=== PATIENT | male | born 1950 | race Caucasian/White ===

== ENCOUNTER → 2024-06-24 11:06 | Outpatient (REF) | payer MEDICARE, SELFPAY ==
--- OUTSIDE RECORDS SUMMARY | 2024-06-24 12:49 | XMS_ITS ---
Author Organization [facility] Address [address] [place] [address] Care Team Providers Care Real Estate Legal Secretary Name Role Phone Rand Chong MD Primary Care Provide r Jose Brunson MD Unavailable Lauren Dia MD Unavailable [phone] Ranjit Sandoval Unavailable [phone]- [phone] Kareem Figueroa MD Unavailable Radha Toure Unavailable Natalya Peñaloza MD Unavailable Active Problems Patient Care Coordination No te Formatting of this note is d ifferent from the original. Geneva Zaidi NP 05/01/2023 12:05 PM This is a 72-year-old male patient presenting to the clinic today for multiple pulmonary nodules. He was referred to the clinic by Dr. Jose Brunson. He has a medical history significant for atrial fibrillation, nephrolithiasis, CAD with stents x2, scleroderma/CREST, myocardial infarction, hyperlipidemia, Raynaud's syndrome, and hypertension. He is a former smoker times 20 years. He was last seen by Dr. Brunson on 02/14/2023 and his note reveals: HPI: Vladimir Valdivia is a 72 y.o. male w/ PMH of coronary artery disease status post stent, persistent atrial fibrillation status post cardioversion, CREST syndrome, Raynaud's on sildenafil who presents on 02/14/2023 for evaluation of pulmonary nodules The patient had a recent ED visit with chest pain on 01/22. He underwent CT PE protocol which was negative for pulmonary embolism but did note multiple pleural-based ground-glass nodular opacities. His symptoms were later attributed to esophageal dysmotility and his known underlying CREST syndrome Interval History: The patient reports no new respiratory issues in the interval. He believes he has been having more issues with the colder weather including more telangiectasias. He continues using sildenafil. His repeat CT scan demonstrates some increase in size and solid component of multiple pulmonary nodules previously seen. I spoke with the patient several days ago and recommended we consider PET-CT. ASSESSMENT AND PLAN 1. 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 Pulmonary hypertension (HCC) - ECHO with borderline RVSP - sildenafil is for Raynaud's, no known pulmonary hypertension - he likely needs annual surveillance echocardiogram 3. Multiple pulmonary nodules - primarily ground-glass pulmonary nodules have demonstrated increase in size and solid component - unclear if these represent an indolent infectious or inflammatory process - given their increase in size and solid component we will evaluate further with PET-CT, I believe 1 of the anterior nodules may be amenable to CT-guided biopsy, the largest unfortunately appears to be in the shadow of a rib - it would be unusual for a primary lung malignancy to appear in multiple lobes simultaneously, PET-CT will also evaluate for any distant occult malignancy He underwent a CT of the chest on 07/25/2022 at [facility] which reveals: FINDINGS: The sensitivity for detection of solid visceral lesions is diminished without the use of intravenous contrast. LUNGS: Central airways are patent. There are semisolid subpleural pulmonary nodules which are similar to prior imaging, these measure 1.4 x 1.1 cm anterior upper lobe (image 45) unchanged and 2.3 x 1.6 cm (image 59) grossly unchanged. Semisolid nodule few additional nodules measure up to 0.6 cm (image 31). No new pulmonary nodules. PLEURA: No pleural effusion or pneumothorax is seen. MEDIASTINUM/PB: No mediastinal or hilar mass. Small nonpathologically enlarged mediastinal lymph nodes. Retained debris in the esophagus. Uncertain if this is retained or due to gastroesophageal reflux. HEART: Heart is top normal. Trace pericardial effusion. CORONARY ARTERY CALCIFICATION: Coronary artery calcification is identified. VASCULATURE: No thoracic aortic aneurysm. AXILLA: No axillary lymphadenopathy. CHEST WALL: No chest wall mass or subcutaneous emphysema. HARDWARE/LINES/TUBES: None. UPPER ABDOMEN: In the included upper abdomen, there is a cirrhotic liver morphology. MUSCULOSKELETAL: Bone windows demonstrate no acute or aggressive osseous abnormality. Moderate degenerative change in the thoracic spine. OTHER: No other significant abnormality. IMPRESSION: Subpleural semisolid nodules are not significantly changed, these are not well suited for potential PET assessment. These do show progression in size from January 2022. While low-grade neoplasm such as an adenocarcinoma cannot be excluded, the distribution would be more suggestive of an infectious or inflammatory process although persistent/progressive from January. Could consider cryptogenic organizing pneumonia or sequela of a viral infection. Additional 3-6 month follow-up recommended. Redemonstration of retained debris in the esophagus, could potentially be related to gastroesophageal reflux. Cirrhotic liver morphology. He underwent a follow-up CT of the chest on 02/07/2023 at [facility] which reveals: FINDINGS: The sensitivity for detection of solid visceral lesions is diminished without the use of intravenous contrast. LUNGS: Multiple peripheral predominant opacities are again noted, some of these show progression. An example in the anterior right upper lobe is a pleural-based opacity now 1.8 x 1.4 cm (image 48 of 103) previously 1.4 x 1.1 cm. In the posterior pleural-based right upper lobe there is a 2.7 x 1.8 cm more semisolid nodule (image 63), previously 2.3 x 1.6 cm. In the right middle lobe there is a 1.4 x 1.3 cm nodule (image 68), previously 1.1 x 1.0 cm (image 63). In the left upper lobe there is a more confluent area of nodular opacity 1.0 x 0.7 cm (image 40). Previously this was 0.9 x 0.5 cm (image 37). Nodule adjacent to the left heart border 1.0 x 0.9 cm (image 60). Small ground-glass nodule posterior left upper lobe just anterior to the major fissure appears new or more conspicuous 0.6 cm (image 24). Multiple additional smaller areas of nodular opacity are noted, there is the nodule in the left lower lobe 0.6 cm (image 66) not definitively seen on prior study. PLEURA: No pleural effusion or pneumothorax. MEDIASTINUM/PB: No mediastinal or hilar mass. There is debris in the esophagus. Small mediastinal lymph nodes which are not pathologically enlarged. HEART: Heart size is normal. Trace pericardial fluid. Coronary artery calcification. CORONARY ARTERY CALCIFICATION: No thoracic aortic aneurysm. VASCULATURE: No thoracic aortic aneurysm. AXILLA: No axillary lymphadenopathy. CHEST WALL: No chest wall mass or subcutaneous emphysema. HARDWARE/LINES/TUBES: None. UPPER ABDOMEN: In the included upper abdomen, slightly nodular surface contour of the liver suggests mild cirrhosis/fibrosis. MUSCULOSKELETAL: Bone windows demonstrate no acute or aggressive osseous abnormality. OTHER: No other significant abnormality. IMPRESSION: Multiple bilateral peripheral predominant opacities, increased from the prior examination. The progressive size raises the possibility of neoplasm. May consider a PET-CT or tissue sampling for further characterization. No evidence of an acute cardiopulmonary abnormality.Slightly nodular surface contour of the liver suggests mild cirrhosis/fibrosis.Debris in the esophagus may be related to reflux or dysmotility. Coronary artery calcification. He underwent a PET scan on 02/21/2023 at [facility] which reveals: FINDINGS:Focal uptake at the right maxillary alveolar ridge is likely due to dental disease.There are multiple hypermetabolic pulmonary nodules, includin.6 x 1.1 cm hypermetabolic anterior right upper lobe subpleural pulmonary nodule with a maximum SUV of 6.7, image #103. This nodule is amenable for biopsy. 1.9 x 2.2 cm subpleural right lower lobe pulmonary nodule with a maximum SUV of 7.1, image #111. This nodule is also amenable for biopsy. Mildly hypermetabolic 1.2 cm right middle lobe pulmonary nodule with a maximum SUV of 2.5, seen on image #115. Few mildly hypermetabolic subcentimeter pulmonary nodules in the left upper lobe for example a 0.8 cm nodule seen on image #99 with a maximum SUV of 2.3. Subpleural small groundglass opacity in the right lower lobe with a maximum SUV of 3.6 on image #100. There are multiple mildly FDG avid cutaneous/subcutaneous nodules. For reference; 0.8 cm hypermetabolic subcutaneous posterior midline nodule at the level of C2 vertebral body seen on image #37 with a maximum SUV of 3.7. 1.3 x 0.8 cm right posterolateral chest wall subcutaneous hypermetabolic nodule with a maximum SUV of 3.9, image #102. Additional posterior chest wall 1.4 x 0.8 cm subcutaneous nodule with a maximum SUV of 4.8, seen on image #111. Focal muscular uptake in the right trapezius at the level of C2 is likely inflammatory. Degenerative uptake in bilateral shoulders. There are physiologic uptake in bilateral infraspinatus muscles. There is a mildly FDG avid 1.1 cm left adrenal adenoma.The most FDG-avid lesion is right lower lobe pulmonary nodule, has a maximum SUV of 7.1, and approximate axial dimensions of 1.9 x [address] findings: Coronary artery calcifications. Cardiomegaly. Atherosclerotic calcification of the abdominal aorta and iliac arteries. Distended bladder with an irregular contour. Hiatal hernia with fluid level in distal esophagus. Degenerative changes of the spine. Bilateral lens replacement. Mediastinal/left hilar calcified granulomas. Mildly atrophic left kidney. IMPRESSION: Multiple hypermetabolic pulmonary nodules, more numerous in the right lung, with interval growth since 01/22/2022, likely represent malignancy. Two of these nodules which are moderately hypermetabolic and are most FDG avid nodules, at the subpleural right upper lobe and subpleural right lower lobe are amenable for tissue sampling. Multiple mildly FDG avid cutaneous/subcutaneous nodules as scribed may be related to the underlying CREST syndrome. Consider correlation with physical examination and tissue diagnosis, if clinically required. Focal uptake at the right maxillary alveolar ridge is likely due to dental disease. He underwent a CT-guided lung biopsy on 03/08/2023 at [facility] which was unsuccessful. He underwent another CT chest at [facility] on 04/04/2023 which reveals: FINDINGS: Unchanged mild cardiomegaly. No pericardial effusion. Coronary artery calcifications. Aortic valve calcifications. Unchanged small subcentimeter mediastinal lymph nodes. No supraclavicular or axillary lymphadenopathy. Normal caliber of the thoracic aorta and main pulmonary artery. Patulous esophagus with a small amount of layering fluid. Small hiatal hernia. Mild bilateral gynecomastia.There are unchanged multiple bilateral pulmonary nodules, some which are solid in appearance and some of which are groundglass. For reference, a 1.8 cm right upper lobe solid irregular nodule is unchanged (322.5). A 1.1 cm left upper lobe groundglass nodule is unchanged (304.5). No pleural effusion. No pneumothorax. Central airways are patent. Unchanged nodular hypoattenuating thickening of both adrenal glands. Small hiatal hernia. No suspicious osseous lesion. IMPRESSION: No significant interval change of multiple pulmonary nodules. He underwent a bronch with EBUS at [facility] on 04/05/2023 which reveals: Findings: 1. Airway inspection The endotracheal tube is in good position. The trachea is of normal caliber. The janet is sharp. The tracheobronchial tree was examined to at least the first subsegmental level. Bronchial mucosa and anatomy are normal; there are no endobronchial lesions, and no secretions. 2. Robotic bronchoscopy right lower lobe The robotic bronchoscope was advanced through the endotracheal tube under direct visualization. Registration was performed of the right and left bronchial trees per standard protocol. The robotic bronchoscope was then advanced to the lateral basal segment of the right lower lobe using direct visualization, CT-anatomic correlation, external fluoroscopic guidance and electromagnetic navigation. 3. Radial EBUS right lower lobe The 1.7mm 20Mhz radial EBUS probe was advanced through the working channel of the robotic bronchoscope and was used to examine the distal airways and lung parenchyma. Following thorough examination of the area using the robotic system and the radial probe, no lesion could be identified in the right lower lobe that corresponded to the nodule identified on recent chest imaging. 4. Robotic bronchoscopy right upper lobe The robotic bronchoscope was then advanced to the right upper lobe anterior segment using direct visualization, CT-anatomic correlation, external fluoroscopic guidance and electromagnetic navigation. 5. Radial EBUS right upper lobe The 1.7mm 20Mhz radial EBUS probe was advanced through the working channel of the robotic bronchoscope and was used to examine the distal airways and lung parenchyma. Following thorough examination of the area using the robotic system and the radial probe, no lesion could be identified in the right upper lobe that corresponded to the nodule identified on recent chest imaging. 6. Ultrathin bronchoscopy right lower lobe The robotic system was withdrawn and a 3mm OD ultrathin bronchoscope was advanced into the right lower lobe lateral basal segment using direct visualization and CT-anatomic correlation. 7. Radial EBUS right lower lobe The 1.7mm 20Mhz radial EBUS probe was advanced through the working channel of the 3mm bronchoscope and was used to examine the distal airways and lung parenchyma. A lesion was identified in the lateral basal segment using radial EBUS. The radial probe was positioned adjacent to the RLL lesion. 8. TBNA Transbronchial needle aspiration times 5 was performed using a Periview Flex 21 gauge needle advanced to the lesion in the RLL through the working channel of the 3mm bronchoscope and was sent for routine cytology. The procedure was fluoroscopically guided. 9. TBBx Transbronchial biopsies were performed in the RLL using forceps advanced through the bronchoscope. The procedure was fluoroscopically guided. 4 biopsy passes were performed. 4 biopsy samples were obtained. Estimated blood loss: minimal. Impression: - Robotic bronchoscopy with radial EBUS was not successful at isolating the right lower lobe nodule or the right upper lobe nodule - Ultrathin bronchoscopy and radial EBUS were used to isolate the right lower lobe nodule - TBNA and TBBx were performed from the right lower lobe - Specimens from the right lower lobe were sent to cytology, microbiology and surgical pathology Recommendation: - Await biopsy, culture and cytology results. Pathology from the EBUS procedure came back: Nondiagnostic for a mass lesion; lung parenchyma with no evidence of malignancy Cytology from the EBUS procedure came back: Lung, right lower lobe, endobronchial ultrasound guided fluoroscopy assisted fine needle aspiration: - Non-diagnostic for mass lesion - Benign bronchial epithelial cells, blood and macrophages only All imaging available on file for review. They are here for further evaluation and discussion. 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 07/24/2023 Family history of colon cancer in mother 024 History of colonic polyps 07/12/2023 Iron deficiency anemia 07/12/2023 Other cirrhosis of liver 05/02/2023 Assessment & Plan (05/06/2024 12:45 PM PROFILE GRINDER): Stable Continue following with gi for management Assessment & Plan (05/02/2023 7:02 AM PROFILE GRINDER): Stable Continue following with gi for management Medicare annual wellness visit, subsequent 05/01 Assessment & Plan (05/07/2024 12:54 PM PROFILE GRINDER): Labs reviewed and discussed Colonoscopy due 2025 AAA screening ordered F/u in 1 year for annual Assessment & Plan (05/02/2023 10:45 AM PROFILE GRINDER): Ordered lipid, hgb a1c, PSA Colonoscopy he will discuss with his GI provider Zoster-encouraged to go to local pharmacy F/u in 1 year for annual Assessment & Plan (05/02/2022 2:33 PM PROFILE GRINDER): Ordered CBC, cmp, lipid, hgb a1c, PSA Colonoscopy will be due in 2023 F/u in 1 year for annual Arteriovenous malformation (AVM) 02/28/2022 Gastrointestinal hemorrhage associated with angiodysplasia of stomach and duodenum 02/28/2022 Assessment & Plan (05/02/2023 6:55 AM PROFILE GRINDER): Stable / clinically quiescent. Will continue to monitor. Continue pepcid 20mg daily Dysphagia 01/30/2022 Overview (01/30/2022): Added automatically from request for surgery [id number] Statin intolerance 05/30/2020 Iron deficiency anemia hailey hensley to inadequate dietary iron intake 06/02/2019 Assessment & Plan (05/02/2023 6:56 AM PROFILE GRINDER): Lab Results Component Value Date HGB 11.4 (L) 04/12/2023 stable Cbc every 6 months Continue iron tablets Assessment & Plan (05/02/2022 2:22 PM PROFILE GRINDER): Cbc every 6 months Continue iron tablets [place] (myocardial infarction) 03/11/2019 Assessment & Plan (05/02/2022 2:19 PM PROFILE GRINDER): S/p 2 stents Continue following with cardiology Hypogonadism in male 11/12/2017 Assessment & Plan (05/06/2024 12:40 PM PROFILE GRINDER): Continue revatio 20mg 3x/day This is for the pulmonary htn, raynauds, and hypogonadism Assessment & Plan (05/02/2023 6:54 AM PROFILE GRINDER): Continue revatio 20mg 3x/day This is for the pulmonary htn, raynauds, and hypogonadism Assessment & Plan (05/02/2022 2:20 PM PROFILE GRINDER): Continue revatio 20mg 3x/day This is for the pulmonary htn, raynauds, and hypogonadism Essential hypertension 06/27/2017 Assessment & Plan (05/07/2024 10:35 AM PROFILE GRINDER): Bp in the office today BP Readings from Last 1 Encounters: 05/07/24 130/62 Continue current regimen of losartan-hctz 100-25mg daily Recommend DASH diet, heart-healthy lifestyle, exercise. Discussed the risks of hypertension. F/u in 6 months Assessment & Plan (10/31/2023 10:50 AM CDT): Bp in the office today BP Readings from Last 1 Encounters: 10/31/23 145/73 Continue current regimen of losartan-hctz 100-25mg daily Recommend DASH diet, heart-healthy lifestyle, exercise. Discussed the risks of hypertension. F/u in 6 months Assessment & Plan (05/02/2023 10:30 AM PROFILE GRINDER): Bp in the office today BP Readings from Last 1 Encounters: 05/02/23 140/68 Continue current regimen of losartan-hctz 100-25mg daily Recommend DASH diet, heart-healthy lifestyle, exercise. Discussed the risks of hypertension. F/u in 6 months Assessment & Plan (10/29/2022 10:08 AM CDT): Bp in the office today BP Readings from Last 1 Encounters: 10/29/22 130/80 Continue current regimen of losartan-hctz 100-25mg daily Recommend DASH diet, heart-healthy lifestyle, exercise. Discussed the risks of hypertension. F/u in 6 months Assessment & Plan (05/02/2022 2:18 PM PROFILE GRINDER): Bp in the office today BP Readings from Last 1 Encounters: 05/02/22 140/70 Continue current regimen of losartan-hctz 100-25mg daily Recommend DASH diet, heart-healthy lifestyle, exercise. Discussed the risks of hypertension. F/u in 6 months CREST syndrome 06/19/2017 Assessment & Plan (05/06/2024 12:45 PM PROFILE GRINDER): Stable / clinically quiescent. Will continue to monitor. Assessment & Plan (05/02/2023 6:56 AM PROFILE GRINDER): Stable / clinically quiescent. Will continue to monitor. Assessment & Plan (05/02/2022 2:22 PM PROFILE GRINDER): Continue sildenafil Acute blood loss anemia 06/19/2017 Assessment & Plan (06/19/2017 4:04 PM PROFILE GRINDER): Status post 4 U of packed RBCs. Monitor H&H. Hold anticoagulation. Assessment & Plan (06/19/2017 1:11 PM PROFILE GRINDER): Initial hemoglobin less than 6, patient received 2 U of packed red blood cells, keep hb above 7 Raynaud's disease with gangrene ([facility]/HCC) 2016 Chronic atrial fibrillation 11/20/2016 Assessment & Plan (05/06/2024 12:39 PM PROFILE GRINDER): Not on AC due to hx of bleeding on xarelto Continue asa Continue following with cardiology Assessment & Plan (05/02/2023 6:52 AM PROFILE GRINDER): Was on xarelto and almost bled to so cannot do xarelto Continue asa Continue following with cardiology Assessment & Plan (05/02/2022 2:14 PM PROFILE GRINDER): Was on xarelto and almost bled to so cannot do xarelto Continue asa Continue following with cardiology Assessment & Plan (06/19/2017 4:09 PM PROFILE GRINDER): Patient is on chronic anticoagulation with Xarelto, coagulation study showed mild elevation of INR 1.31. Recommending to discontinue Xarelto for now and follow up with a tertiary center for further cauterization of possible small-bowel telangiectasias. Risks and benefits were discussed with the patient about discontinuation of anticoagulation. Patient verbalized understanding. Assessment & Plan (06/19/2017 1:11 PM PROFILE GRINDER): Will hold any anticoagulation at this point due to active bleeding Telemetry monitoring Mixed hyperlipidemia 11/20/2016 Assessment & Plan (05/06/2024 12:40 PM PROFILE GRINDER): Lab Results Component Value Date LDLCALC 118 04/30/2024 Stable Continue atorvastatin 20mg daily Assessment & Plan (05/02/2023 6:53 AM PROFILE GRINDER): Stable Continue statin medication Assessment & Plan (05/01/2022 9:15 PM PROFILE GRINDER): Stable Continue statin medication Coronary artery disease invo lving [place] heart without angina pectoris 11/20/2016 Assessment & Plan (05/06/2024 12:39 PM PROFILE GRINDER): S/p 2 stent Cont asa and statin Continue following with cardiology Assessment & Plan (05/02/2023 6:53 AM PROFILE GRINDER): S/p 2 stent Continue following with cardiology Assessment & Plan (05/02/2022 2:15 PM PROFILE GRINDER): S/p 2 stent Continue following with cardiology Assessment & Plan (06/19/2017 1:11 PM PROFILE GRINDER): Stable No antiplatelets at this point - patient with active GI bleed Chronic coronary artery disease 07/05/2014 Overview (07/28/2016): CAD - Coronary artery disease Systemic sclerosis (CMS/HCC) 09/05/2013 Overview (07/26/2016): SYSTEMIC SCLEROSIS Class 2 severe obesity due t o excess calories with serious comorbidity and body mass index (BMI) of 36.0 to 36.9 in adult 09/05/2013 Overview (07/28/2016): OBESITY NOS Assessment & Plan (05/02/2023 10:59 AM PROFILE GRINDER): He was counseled on the importance of maintaining a healthy weight and the risks of obesity. Weight loss recommended. Chronic anemia Current Treatment and Therapy Plans No current plan information found. Other Current Plans iron sucrose (Venofer) Infusion* Plan Start Date:06/18/2024 Plan Provider:Kareem Figueroa MD Linked Problems Iron deficiency anemia due t o chronic blood lossArteriovenous malformation (AVM) Treatment Medications No medications scheduled. Past Treatment and Therapy Plans Lifetime Dose Tracking * Chemical Lifetime Dose Automatic Entry Manual Entr y DLP 802 mGycm 802 mGycm 0 mGycm Resolved Problems Problem Noted Date Diagnosed Date Resolved Date Upper respiratory infection 10/08/2023 05/06/2024 Assessment & Plan (10/08/2023 11:08 AM CDT): New concern Not at goal S/p augmentin Covid and flu negative Will send cefdinir and z pack Chest xray ordered given wheezing on exam F/u if no improvement Right lower lobe consolidation 03/18/2023 05/06/2024 Shortness of breath 10/29/2022 05/06/19 25 Assessment & Plan (10/08/2023 11:09 AM CDT): Worsening Likely from URI but will get cbc to check hgb levels Assessment & Plan (10/29/2022 11:08 AM CDT): Worsening Differential diagnosis could be atrial fibrillation anemia heart failure Probnp although low suspicion cardiac etiology given no other signs on physical exam and heart rate is normal. Slight drop in anemia which could possibly be contributing to the symptoms Will get b12 Iron levels and ferritin If patient has low iron levels will send to Hematology for iron transfusion Recommend seeing his insurance policy issue clerk first. 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 Given the discomfort and increasing size we will set him up for excision of this. Given the location size we will do this in the OR with a little bit of light sedation. He is in understanding of the plan. Acute upper GI bleeding 11/20/201607/22 Assessment & Plan (06/19/2017 4:03 PM PROFILE GRINDER): Patient came severely anemic, tarry stools, received 4 U of packed RBCs already and hemoglobin improved to 8.3 today. Status post EGD with results: Findings: The examined esophagus was normal. The entire examined stomach was normal, no gastritis, no ulcers, no stigmata of bleeding. Multiple small angioectasias without bleeding were found extending from the second part of the duodenum to the proximal jejunum. 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 Coagulation for bleeding prevention and destruction of lesions using argon plasma at 1.4 liters/minute and 40 hernandez was successful. A few small angioectasias without bleeding were found in the jejunum. Coagulation for tissue destruction using argon plasma at 1.4 liters/minute and 40 hernandez was successful. 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 Will resume cardiac pertinent home medications with holding parameters to hold the medications if systolic blood pressure less than 110 Disorder of lipid metabolism 09/05/2013 11/20/2016 Overview (07/28/2016): LIPOID METABOL DIS NOS CHIARA (acute kidney injury)
--- OUTSIDE RECORDS SUMMARY | 2024-06-24 12:49 | XMS_ITS | Clinical Summary ---
Author Organization [facility] Address [address] [place] [address] Phone Care Team Providers Care Assistant Toddler Teacher Name Role Phone Declan Mora MD Primary Care Provider [phone] Allergies No known active allergies Medications aspirin EC 81 MG Tablet Delayed Response Take 81 mg by mouth daily. Active atorvastatin (LIPITOR) 20 MG Tablet Take 20 mg by mouth daily. 3 times a week Active sildenafil (REVATIO) 20 MG Tablet Take 20 mg by mouth 3 times daily. Active Multiple Vitamins-Mineral s (CENTRUM-LUTEIN PO) Take 1 Tab by mouth daily. HAS NO IRON IN IT Active amLODIPine (NORVASC) 5 MG Tablet Take 5 mg by mouth every other day. Active losartan potassium-hydroc hlorothiazide (HYZAAR) 100-25 MG Tablet Take by mouth every morning. Active pantoprazole (PROTONIX) 20 MG Tablet Delayed Response Take 20 mg by mouth daily. Active esomeprazole (NEXIUM) 40 MG CAPSULE DELAYED RELEASE Take 40 mg by mouth 2 times daily. Active Family History Medical History Relation Name Comments Lung Cancer Father Osteoarthritis Father Colon Cancer Mother Osteoarthritis Mother Relation Name Status Comments Father Mother Alive Social History Tobacco Use Types Packs/Day Years Used Date Smoking Tobacco: Former Cigarettes 0.5 20 0 06/20/1974 - 06/20/1994 Smokeless Tobacco: Never Comments:quit several years ago Alcohol Use Standard Drinks/Week Comments Yes 0 (1 standard drink = 0.6 oz pur e alcohol) rarely one drink a month Sex and Gender Information Value Date Recorded Sex Assigned at Not on file Legal Sex Male 8:33 PM CDT Gender Identity Not on file Sexual Orientation Not on file 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 [employer] Not on file Not on file Not on file Last Filed Vital Signs Vital Sign Reading Time Taken Comments Blood Pressure 106/64 06/03/2019 10:27 AM ASSISTANT SALES CENTER MANAGER Pulse 66 06/03/2019 10:27 AM ASSISTANT SALES CENTER MANAGER Temperature 36 C (96.8 F) 06/03/2019 10:27 AM ASSISTANT SALES CENTER MANAGER Respiratory Rate 18 06/03/2019 10:27 AM ASSISTANT SALES CENTER MANAGER Oxygen Saturation 100% 06/03/2019 10:27 AM ASSISTANT SALES CENTER MANAGER Inhaled Oxygen Concentration - - Weight 108.9 kg (240 lb) 06/01/2019 9:00 AM ASSISTANT SALES CENTER MANAGER Height 177.8 cm (5' 10 ) 06/01/2019 9:00 AM ASSISTANT SALES CENTER MANAGER Body Mass Index 34.44 06/01/2019 9:00 AM ASSISTANT SALES CENTER MANAGER Plan of Treatment Health Maintenance Due Date Last Done Comments Hepatitis C Virus (HCV) Screening 1950 TdaP Immunization 1950 Cologuard 10/28/1999 Immunochemical Fecal Occult Blood 10/28/1999 Pneumococcal Immunization (50+ years) (1 of 1 - PCV) 10/28/1999 Zoster Immunization (1 of 2) 10/28/1999 Respiratory Syncytial Virus (RSV) Immunization (Adult) (1 - Risk 60-74 years 1-dose series) 2009 Influenza Immunization (#1) 2023 SARS-COV-2 Immunization ( season) 2023 08/03/2021, 02/10/2021, 07/01/2020, Additional history exists Colonoscopy 04/10/2024 04/10/2019, 03/23, 06/19/2016 Colorectal Cancer Screening 04/10/2024 04/10/2019, 03/23, 06/19/2016 Hepatitis B Immunization Aged Out No longer eligible based on patient's age to complete this topic Meningococcal Immunization (ACWY) Aged Out No longer eligible based on patient's age to complete this topic Rotavirus Immunization Aged Out No lo nger eligible based on patient's age to complete this topic Insurance MEDICARE [facility] [employer] workers compensation specialist Care Teams Assistant Toddler Teacher Relationship Specialty Start Date End Date Declan Mora MD [address] [place] [address] PCP - General Internal Medicine 05/18/15
--- OUTSIDE RECORDS SUMMARY | 2024-06-24 12:50 | XMS_ITS | Encounter Summary ---
Author Organization [facility] Address [address] [place] [address] Phone Care Team Providers Care Retail Solar Advisor Name Role Phone Declan Mora MD Primary Care Provider [phone] Amy Echeverria RN Unavailable [phone] Amy Echeverria RN Unavailable [phone] Declan Mora MD Primary Care Provider [phone] Wally Shell MD Primary Care Provider Rand Chong MD Primary Care Provide r Jose Brunson MD Unavailable Lauren Dia MD Unavailable [phone] Ranjit Sandoval Unavailable [phone] Kareem Figueroa MD Unavailable [phone] Radha Toure Unavailable [phone] Natalya Peñaloza MD Unavailable Encounter Details Date Type Department Care Team (Late st Contact Info) Description 07/19/2017 Orders Only [facility] ProviderWilliam MD [address] [place] [address] Social History Tobacco Use Types Packs/Day Years Used Date Smoking Tobacco: Former Smokeless Tobacco: Never Alcohol Use Standard Drinks/Week Comments No 0 (1 standard drink = 0.6 oz pur e alcohol) Sex and Gender Information Value Date Recorded Sex Assigned at Not on file Legal Sex Male 11:53 PM RESIDENTIAL CARE FACILITY MANAGER Gender Identity Male 09/12/2023 11:52 AM CDT Sexual Orientation Straight 09/12/2023 11 :52 AM CDT documented as of this encounter Plan of Treatment Upcoming Encounters Date Type Department Care Team (Late st Contact Info) Description 11/03/2024 12:00 PM CDT Hospital Encounter [address] [address] Rudy Mccarthy MD [address] [place] [address] 11/03/2024 12:00 PM CDT - 11/03/2024 12:30 PM CDT Surgery [address] [address] Rudy Mccarthy MD [address] [place] [address] COLONOSCOPY Scheduled Procedures Name Priority Associated Diagnoses Date/Ti me COLONOSCOPY Colitis AVM (arteriovenous malformation) Family history of colon cancer 11/03/2024 12:00 PM CDT documented as of this encounter Procedures Procedure Name Priority Date/Time Associated Diagnosis Comments DISCHARGE LABORATORY CUMULATIVE REPORT 07/19/2017 12:00 AM CDT documented in this encounter Results * DISCHARGE LABORATORY CUMULATIVE REPORT (07/19/2017 12:00 AM CDT) Narrative 07/19/2017 12:00 AM CDT Ordered by an unspecified provider. us Historical Provider LAB BLOOD ORDERABLES Ivory l Result documented in this encounter Visit Diagnoses Not on filedocumented in this encounter Additional Health Concerns Infection Onset Date Last Indicated Resolved Time COVID: Suspected 09/07/2021 09/07/2021 09/08/2021 12:01 AM CDT COVID: Suspected 03/24/2022 03/24/2022 03/24/2022 9:48 AM RESIDENTIAL CARE FACILITY MANAGER COVID: Suspected 10/08/2023 10/08/202310/08/2023 10:56 AM CDT documented as of this encounter Care Teams Retail Solar Advisor Relationship Specialty Start Date End Date Declan Mora MD PCP - General 07/20/16 10/01/21 Declan Mora MD [address] [place] [address] PCP - General 10/03/21 01/22/22 Wally Shell MD [address] [place] [address] PCP - General Family Medicine 01/23/22 01/23/22 Rand Chong MD [address] [place] [address] PCP - General Family Medicine 01/24/22 Amy Echeverria RN [address] [place], [place] [id number] Big Data Lead 06/21/17 07/21/17 Amy Echeverria RN [address] [place] [address] [address] [place] [address] Big Data Lead 09/13/21 10/08/21 Jose Brunson MD [address] [place] [address] Consulting Physician Pulmonary Disease 05/02/22 Lauren Dia MD [address] [place] [place] [address] Consulting Physician Cardiology 05/02/22 Ranjit Sandoval PA [address] [place] [address] Physician Adult Health Clinical Nurse Specialist Physician Adult Health Clinical Nurse Specialist 07/05/23 Kareem Figueroa MD [address] [facility] [address] Consulting Physician Medical Oncology 05/07/24 Radha Toure PA [address] [place] [address] Gastroenterology 05/07/24 Natalya Peñaloza MD [address] [place] [address] Consulting Physician Internal Medicine 05/07/24 documented as of this encounter
--- OUTSIDE RECORDS SUMMARY | 2024-06-24 12:50 | XMS_ITS | Clinical Summary ---
Author Organization [facility] Address [address] [place] [address] Care Team Providers Care Repair Supervisor Name Role Phone Rand Chong MD Primary Care Provide r Jose Brunson MD Unavailable Lauren Dia MD Unavailable [phone] Ranjit Sandoval Unavailable Kareem Figueroa MD Unavailable Radha Toure Unavailable Natalya Peñaloza MD Unavailable Allergies No known active allergies Medications aspirin 81 mg enteric coated tablet Take 1 tablet (81 mg total) by mouth daily Active ferrous sulfate ER (SLOW IRON) 140 mg (45 mg of elemental iron) tabletIndication s:Iron Deficiency Anemia 1 tablet (140 mg total) Active multivitamin-min erals-lutein tablet Take by mouth Active vitamins A,C,Z-phyg-oazak r (OCUVITE) 2,148 mcg-113 mg-45 mg-17.4mg tablet 1 tablet Active atorvastatin (LIPITOR) 20 mg tablet TAKE 1 TABLET BY MOUTH EVERY OTHER DAY 90 tablet 08/21/19 24 Active albuterol HFA (PROVENTIL HFA,VENTOLIN HFA,PROAIR HFA) 90 mcg/actuation inhalerIndicatio ns:Cough, unspecified type Inhale 2 puffs every 6 (six) hours as needed for wheezing 1 each 10/08/19 24 025 Active Additional Information Patient not taking.Reported on 06/22/2024 sildenafiL, pulm.hypertensio n, (REVATIO) 20 mg tablet TAKE 1 TABLET(20 MG) BY MOUTH THREE TIMES DAILY 270 tablet 1 04/14/20 24 Active famotidine (PEPCID) 20 mg tablet TAKE 1 TO 2 TABLETS BY MOUTH DAILY FOR HEARTBURN; TRY TAPERING TO 1 TABLET DAILY IF TOLERATED 180 tablet 04/17/20 24 Active losartan-hydroch lorothiazide (HYZAAR) 100-25 mg per tabletIndication s:Essential hypertension TAKE 1 TABLET BY MOUTH DAILY 100 tablet 04/28/19 25 025 Active folic acid (FOLVITE) 1 mg tabletIndication s:Folate Deficiency Take 1 tablet (1 mg total) by mouth daily 30 tablet 3 06/11/19 25 025 Active azithromycin (ZITHROMAX) 250 mg tablet Take 2 by mouth today then 1 daily for 4 days 6 tablet 06/23/19 25 025 Active folic acid (FOLVITE) 1 mg tabletIndication s:Folate Deficiency Take 1 tablet (1 mg total) by mouth daily 30 tablet 3 01/10/20 24 025 Discontin ued(Reord er) pantoprazole DR (PROTONIX) 40 mg EC tablet Take 1 tablet (40 mg total) by mouth daily 90 tablet 3 04/28/19 25 025 Discontin ued(Thera py completed ) Active Problems Patient Care Coordination No te [...] on 02/14/2023 and his note reveals: HPI: Twyla Noonan is a 72 y.o. male w/ PMH [...] (HCC) - he currently follows with a management consultant - he takes sildenafil for Raynaud's - [...] CT of the chest on 07/25/2022 at [facility] which reveals: FINDINGS: The sensitivity for detection [...] CT of the chest on 02/07/2023 at [facility] which reveals: FINDINGS: The sensitivity for detection [...] underwent a PET scan on 02/21/2023 at [facility] which reveals: FINDINGS:Focal uptake at the right [...] a CT-guided lung biopsy on 03/08/2023 at [facility] which was unsuccessful. He underwent another CT chest at [facility] on 04/04/2023 which reveals: FINDINGS: Unchanged mild [...] He underwent a bronch with EBUS at [facility] on 04/05/2023 which reveals: Findings: 1. Airway [...] 05/07/2024 Assessment & Plan (05/07/2024 10:40 AM DIRECTOR MOBILE): Chronic Slight decline Possibly autoimmune related Recommend [...] 05/02/2023 Assessment & Plan (05/06/2024 12:45 PM DIRECTOR MOBILE): Stable Continue following with gi for management Assessment & Plan (05/02/2023 7:02 AM DIRECTOR MOBILE): Stable Continue following with gi for management Medicare annual wellness visit, subsequent 05/01 Assessment & Plan (05/07/2024 12:54 PM DIRECTOR MOBILE): Labs reviewed and discussed Colonoscopy due 2025 US AAA screening ordered F/u in 1 year for annual Assessment & Plan (05/02/2023 10:45 AM DIRECTOR MOBILE): Ordered lipid, hgb a1c, PSA Colonoscopy he will discuss with his GI provider Zoster-encouraged to go to local pharmacy F/u in 1 year for annual Assessment & Plan (05/02/2022 2:33 PM DIRECTOR MOBILE): Ordered CBC, cmp, lipid, hgb a1c, PSA Colonoscopy will be due in 2023 F/u in 1 year for annual Arteriovenous malformation (AVM) 02/28/2022 Gastrointestinal hemorrhage associated with angiodysplasia of stomach and duodenum 02/28/2022 Assessment & Plan (05/02/2023 6:55 AM DIRECTOR MOBILE): Stable / clinically quiescent. Will continue to monitor. Continue pepcid 20mg daily Dysphagia 01/30/2022 Overview (01/30/2022): Added automatically from request for surgery [id number] Statin intolerance 05/30/2020 Iron deficiency anemia hailey hensley to inadequate dietary iron intake 06/02/2019 Assessment & Plan (05/02/2023 6:56 AM DIRECTOR MOBILE): Lab Results Component Value Date HGB 11.4 (L) 04/12/2023 stable Cbc every 6 months Continue iron tablets Assessment & Plan (05/02/2022 2:22 PM DIRECTOR MOBILE): Cbc every 6 months Continue iron tablets Old VT (myocardial infarction) 03/11/2019 Assessment & Plan (05/02/2022 2:19 PM DIRECTOR MOBILE): S/p 2 stents Continue following with cardiology Hypogonadism in male 11/12/2017 Assessment & Plan (05/06/2024 12:40 PM DIRECTOR MOBILE): Continue revatio 20mg 3x/day This is for the pulmonary htn, raynauds, and hypogonadism Assessment & Plan (05/02/2023 6:54 AM DIRECTOR MOBILE): Continue revatio 20mg 3x/day This is for the pulmonary htn, raynauds, and hypogonadism Assessment & Plan (05/02/2022 2:20 PM DIRECTOR MOBILE): Continue revatio 20mg 3x/day This is for the pulmonary htn, raynauds, and hypogonadism Essential hypertension 06/27/2017 Assessment & Plan (05/07/2024 10:35 AM DIRECTOR MOBILE): Bp in the office today BP Readings [...] months Assessment & Plan (05/02/2023 10:30 AM DIRECTOR MOBILE): Bp in the office today BP Readings [...] months Assessment & Plan (05/02/2022 2:18 PM DIRECTOR MOBILE): Bp in the office today BP Readings from Last 1 Encounters: 05/02/22 140/70 Continue current regimen of losartan-hctz 100-25mg daily Recommend DASH diet, heart-healthy lifestyle, exercise. Discussed the risks of hypertension. F/u in 6 months CREST syndrome 06/19/2017 Assessment & Plan (05/06/2024 12:45 PM DIRECTOR MOBILE): Stable / clinically quiescent. Will continue to monitor. Assessment & Plan (05/02/2023 6:56 AM DIRECTOR MOBILE): Stable / clinically quiescent. Will continue to monitor. Assessment & Plan (05/02/2022 2:22 PM DIRECTOR MOBILE): Continue sildenafil Acute blood loss anemia 06/19/2017 Assessment & Plan (06/19/2017 4:04 PM DIRECTOR MOBILE): Status post 4 U of packed RBCs. Monitor H&H. Hold anticoagulation. Assessment & Plan (06/19/2017 1:11 PM DIRECTOR MOBILE): Initial hemoglobin less than 6, patient received 2 U of packed red blood cells, keep hb above 7 Raynaud's disease with gangrene ([facility]/HCC) 2016 Chronic atrial fibrillation 11/20/2016 Assessment & Plan (05/06/2024 12:39 PM DIRECTOR MOBILE): Not on AC due to hx of bleeding on xarelto Continue asa Continue following with cardiology Assessment & Plan (05/02/2023 6:52 AM DIRECTOR MOBILE): Was on xarelto and almost bled to so cannot do xarelto Continue asa Continue following with cardiology Assessment & Plan (05/02/2022 2:14 PM DIRECTOR MOBILE): Was on xarelto and almost bled to so cannot do xarelto Continue asa Continue following with cardiology Assessment & Plan (06/19/2017 4:09 PM DIRECTOR MOBILE): Patient is on chronic anticoagulation with Xarelto, coagulation study showed mild elevation of INR 1.31. Recommending to discontinue Xarelto for now and follow up with a tertiary center for further cauterization of possible small-bowel telangiectasias. Risks and benefits were discussed with the patient about discontinuation of anticoagulation. Patient verbalized understanding. Assessment & Plan (06/19/2017 1:11 PM DIRECTOR MOBILE): Will hold any anticoagulation at this point due to active bleeding Telemetry monitoring Mixed hyperlipidemia 11/20/2016 Assessment & Plan (05/06/2024 12:40 PM DIRECTOR MOBILE): Lab Results Component Value Date LDLCALC 118 04/30/2024 Stable Continue atorvastatin 20mg daily Assessment & Plan (05/02/2023 6:53 AM DIRECTOR MOBILE): Stable Continue statin medication Assessment & Plan (05/01/2022 9:15 PM DIRECTOR MOBILE): Stable Continue statin medication Coronary artery disease invo lving [place] heart without angina pectoris 11/20/2016 Assessment & Plan (05/06/2024 12:39 PM DIRECTOR MOBILE): S/p 2 stent Cont asa and statin Continue following with cardiology Assessment & Plan (05/02/2023 6:53 AM DIRECTOR MOBILE): S/p 2 stent Continue following with cardiology Assessment & Plan (05/02/2022 2:15 PM DIRECTOR MOBILE): S/p 2 stent Continue following with cardiology Assessment & Plan (06/19/2017 1:11 PM DIRECTOR MOBILE): Stable No antiplatelets at this point - [...] NOS Assessment & Plan (05/02/2023 10:59 AM DIRECTOR MOBILE): He was counseled on the importance of maintaining a healthy weight and the risks of obesity. Weight loss recommended. Chronic anemia Resolved Problems Problem Noted Date Diagnosed Date [...] Hematology for iron transfusion Recommend seeing his block cleaner first. If no answers there, will recommend he follow with his after school tutor Pneumonia 09/08/2021 05/06/2024 Assessment & Plan (01/24/2022 3:15 PM CDT): Complete antibiotics Ct reviewed Keep appointment with pulmonary F/u at annual Sepsis 09/08/2021 05/06/2024 Neck mass 11/10/2020 12/05/2020 Overview (11/10/2020): Added automatically from request for surgery [id number] Assessment & Plan (11/10/2020 2:24 PM CDT): [...] 11/20/201607/22 Assessment & Plan (06/19/2017 4:03 PM DIRECTOR MOBILE): Patient came severely anemic, tarry stools, received [...] successful. Assessment & Plan (06/19/2017 1:11 PM DIRECTOR MOBILE): Most likely from AVM's again related to known history of CREST and AVM's Keep npo, urgent EGD On ppi Holding blood thinner Multiple-type hyperlipidemia 09/05/2013 01/01/2017 Overview (07/26/2016): MIXED HYPERLIPIDEMIA Benign hypertension 09/05/2013 06/28/19 Overview (07/26/2016): BENIGN HYPERTENSION Assessment & Plan (06/19/2017 12:10 AM DIRECTOR MOBILE): Blood pressure is stable. Will resume cardiac pertinent home medications with holding parameters to hold the medications if systolic blood pressure less than 110 Disorder of lipid metabolism 09/05/2013 11/20/2016 Overview (07/28/2016): LIPOID METABOL DIS NOS CHIARA (acute kidney injury) Encounters Date Type Department Care Team Description 06/22/2024 11:30 AM DIRECTOR MOBILE Lab [address] Arrived 06/22/2024 11:15 AM DIRECTOR MOBILE [address] CREST (calcinosis, Raynaud's phenomenon, esophageal dysfunction, sclerodactyly, telangiectasia) (HCC) 06/22/2024 10:30 AM DIRECTOR MOBILE Office Visit [facility]monary at [address] [place] [address] Jose Brunson MD Multiple pulmonary nodules (Primary Dx); CREST (calcinosis, Raynaud's phenomenon, esophageal dysfunction, sclerodactyly, telangiectasia) (HCC); Pulmonary hypertension (HCC); Acute non-recurrent maxillary sinusitis 06/17/2024 10:42 AM DIRECTOR MOBILE - 06/17/2024 11:59 PM DIRECTOR MOBILE Hospital Encounter [address] [address] Multiple pulmonary nodules Discharge Disposition: Discharge to home or self care 06/17/2024 10:34 AM DIRECTOR MOBILE - 06/17/2024 11:59 PM DIRECTOR MOBILE Hospital Encounter [address] [address] Chronic liver disease Discharge Disposition: Discharge to home or self care 06/16/[address] [address] Luther Prince 06/12/2024 11:00 AM DIRECTOR MOBILE Office Visit [facility] Rheumatology [address] [place] [address] 5[address] [place] [address] [place] [address] CREST (calcinosis, Raynaud's phenomenon, esophageal dysfunction, sclerodactyly, telangiectasia) (HCC) (Primary Dx) 06/12/2024 Results Follow-Up [facility] G[facility]enterology at [address] [place] [address] Radha Toure PA Elevated alkaline phosphatase level (Primary Dx) 06/11/2024 9:45 AM DIRECTOR MOBILE Office Visit [address] [place] [address] Kasie Mari, BED CONTROL SPECIALIST Iron deficiency anemia due to chronic blood loss (Primary Dx); Folic acid deficiency 06/10/2024 10:45 AM DIRECTOR MOBILE Lab [address] [place] [address] Iron deficiency anemia due to chronic blood loss; Chronic liver disease; Abnormal findings on diagnostic imaging of liver and biliary tract; CREST (calcinosis, Raynaud's phenomenon, esophageal dysfunction, sclerodactyly, telangiectasia) (HCC) 06/10/2024 10:20 AM DIRECTOR MOBILE - 06/10/2024 11:59 PM DIRECTOR MOBILE Hospital Encounter [address] Chronic liver disease; Abnormal findings on diagnostic imaging of liver and biliary tract Discharge Disposition: Discharge to home or self care 06/10/[address] Office [facility] [address] [place] [address] Kiara Bethea CLT 05/28/2024 2:30 PM DIRECTOR MOBILE Office Visit [facility] Gastroenterology at [address] [place] [address] Radha Toure PA Chronic liver disease (Primary Dx); Abnormal findings on diagnostic imaging of liver and biliary tract; Constipation, unspecified constipation type; Gastroesophageal reflux disease, unspecified whether esophagitis present; CREST syndrome (HCC); Family history of colon cancer in mother; History of colonic polyps; Gallbladder polyp; Iron deficiency anemia due to chronic blood loss 05/11/2024 Telephone [facility] Gastroenterology at [address] [place] [address] Geneva Nina Schedule Colonoscopy 05/07/2024 10:30 AM DIRECTOR MOBILE Office Visit [facility] at [address] [place] [address] Rand Rockwell MD Medicare annual wellness visit, subsequent (Primary Dx); Chronic atrial fibrillation (HCC); Coronary artery disease involving k[place]zebue coronary artery of kotzebue heart without angina pectoris; Essential hypertension; Mixed hyperlipidemia; Hypogonadism in male; Other cirrhosis of liver (HCC); CREST syndrome (HCC); Class 2 severe obesity due to excess calories with serious comorbidity and body mass index (BMI) of 36.0 to 36.9 in adult (HCC); Stage 3b chronic kidney disease (HCC) 05/07/2024 Orders Only [facility] at [address] [place] [address] Rand Rockwell MD Stage 3b chronic kidney disease (HCC); Encounter for abdominal aortic aneurysm (AAA) screening 05/01/2024 Telephone [facility] at [address] [place] [address] [place], [place] 04/30/2024 12:30 PM DIRECTOR MOBILE Lab [address] Routine health maintenance 04/30/2024 10:30 AM DIRECTOR MOBILE Infusion [address] [place] [address] Iron deficiency anemia due to chronic blood loss 04/30/2024 10:00 AM DIRECTOR MOBILE Office Visit 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 (HCC) 04/30/2024 9:30 AM DIRECTOR MOBILE Lab [address] [place] [address] Iron deficiency anemia due to chronic blood loss 04/30/[address] [place] [address] Kareem Figueroa MD 04/28/2024 8:16 AM DIRECTOR MOBILE Anesthesia Event [address] [address] Aly Deluca MD Zirkelbach, Cecilia A., CRNA 04/28/2024 8:00 AM DIRECTOR MOBILE - 04/28/2024 8:30 AM DIRECTOR MOBILE Surgery [address] [address] Rudy Mccarthy MD COLON CONTROL BLEEDING 04/28/2024 6:55 AM DIRECTOR MOBILE - 04/28/2024 9:44 AM DIRECTOR MOBILE Hospital Encounter [address] [address] Rudy Mccarthy MD Family history of colon cancer in mother; Personal history of colonic polyps; Iron deficiency anemia, unspecified iron deficiency anemia type; History of colonic polyps Discharge Disposition: Discharge to home or self care 04/02/2024 10:30 AM DIRECTOR MOBILE Infusion [address] [address] Iron deficiency anemia due to chronic blood loss (Primary Dx) 04/02/2024 9:30 AM DIRECTOR MOBILE Office Visit [facility] Oncology [address] [place] [address] Medical Office [address] [place] [address] Kareem Figueroa MD Iron deficiency anemia due to chronic blood loss (Primary Dx); 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 (HCC) 04/02/2024 9:00 AM DIRECTOR MOBILE Lab [address] [address] 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 (HCC); Iron deficiency anemia due to chronic blood loss; Folic acid deficiency from Last 3 Months Immunizations Immunization Administration Dates Next Due Influenza, Quad, Adjuvantate d, Intramuscular 02/09/2023 Influenza, Quadrivalent, Hig h Dose, Preservative Free, Intrr 02/04/2022,02/07/2021,01/11/2020 Influenza, Trivalent, High D ose, Split, Preservative Free, Intramuscular 02/11/2019,02/11/2018,02/12/2017,02/13 Influenza, Trivalent, IM (MDV) 10/30/2016,2014,01/20/2011 Influenza, Unspecified 01/17/2024,2021,01/24/2022(Defer red: Patient Refused),11/24/2020(Deferred: Patient Refused),01/08/2019(Deferred: Patient Refused) Moderna SARS-CoV-2 Monovalen t Vaccination (12+ YRS) 07/01/2020,06/04/2020 Pneumococcal Conjugate PCV 13 06/10/2015 Pneumococcal Polysaccharide PPV23 06/15/2016 Tdap 01/05/2009 Surgical History Surgery Date Site/Laterality Comments VASECTOMY Vasectomy APPENDECTOMY Appendectomy CARPAL TUNNEL RELEASE Carpal tunnel release KNEE ARTHROSCOPY b/L Arthroscopy knee OTHER SURGICAL HISTORY atrial fibrillation: cardioversion CATARACT EXTRACTION 04/23/2018 05/28/2018 Bilateral KNEE SURGERY FINGER AMPUTATION Left left second finger tip COLONOSCOPY 04/22/2018 - 04/21/2019 Medical History Medical History Date Comments Adiposity obesity Hyperlipidemia Hypertension Hypertension Calculus of kidney Nephrolithias is Arrhythmia Cardiac disease 2015 stents x 2 , LAD Raynaud's disease GERD (gastroesophageal reflux disease) Pulmonary hypertension (HCC) CREST (calcinosis, Raynaud's phenomenon, esophageal dysfunction, sclerodactyly, telangiectasia) (HCC) Anemia Melanoma (HCC) Melanoma (HCC) CAD (coronary artery disease) 2014 Myocardial infarction (HCC) Atrial fibrillation (HCC) Varicella zoster Iron deficiency anemia due t o chronic blood loss 10/14/2023 Iron deficiency anemia Melanoma (HCC) Pulmonary nodules monitoring for past 2 years Family History Medical History Relation Name Comments Lung cancer Father Cancer -lung; d eceased @ 67/Cancer -lung; Cause of : Cancer -lung/Family history of lung cancer - (Added by TW Conv) Colon cancer Mother Cancer -colon; Depression Mother Depression; Hypertension Mother Hypertension; Other Other 1 No family histo ry of Diabetes mellitus; Other Other 2 No family histo ry of Heart disease; Heart disease Paternal Grandfather Psoriasis Son Psoriasis; Relation Name Status Comments Father Mother Other 1 Other 2 Paternal Grandfather Son Social History Tobacco Use Types Packs/Day Years Used Date Smoking Tobacco: Former Cigarettes Q uit: 1970 Smokeless Tobacco: Never Tobacco Cessation:Counseling Given: Not Answered Comments:Stopped and started smoking throughout teens and then started smoking in the 70's-80's then quit. tc Alcohol Use Standard Drinks/Week Comments No 0 (1 standard drink = 0.6 oz pur e alcohol) 1/6mo Social Connection and Isolat ion Panel [NHANES] Answer Date Recorded In a typical week, how many times do you talk on the phone with family, friends, or neighbors? More than three times a week 10/09/2021 How often do you get togethe r with friends or relatives? More than three times a week 10/09/2021 How often do you attend chur ch or evangelical services? More than 4 times per year 10/09/2021 Do you belong to any clubs o r organizations such as voodoo groups, unions, fraternal or athletic groups, or school groups? Yes 10/09/2021 How often do you attend meet ings of the clubs or organizations you belong to? More than 4 times per year 10/09/2021 Are you , , di vorced, , never , or living with a partner? 10/09/2021 AUDIT-C Answer Date Recorded Q1: How often do you have a drink containing alcohol? Never 04/30/2024 Q2: How many drinks containi ng alcohol do you have on a typical day when you are drinking? Patient does not drink Q3: How often do you have si x or more drinks on one occasion? Never 04/30/2024 Overall Financial Resource Strain (CARDIA) Answe r Date Recorded How hard is it for you to pa y for the very basics like food, housing, medical care, and heating? Not hard at all 10/09/2021 PHQ-2 Answer Date Recorded PHQ-2 Total Score (If total score is 3 or more points, staff should administer the PHQ-9) 0 04/30/2024 PRAPARE - Transportation Answer Date Re corded In the past 12 months, has l ack of transportation kept you from medical appointments or from getting medications? No 09/21 In the past 12 months, has l ack of transportation kept you from meetings, work, or from getting things needed for daily living? No 10/09/2021 Housing Stability Vital Sign Answer Alcon e Recorded In the last 12 months, was t here a time when you were not able to pay the mortgage or rent on time? No 10/09/2021 In the last 12 months, how many places have you lived? 1 10/09/2021 In the last 12 months, was t here a time when you did not have a steady place to sleep or slept in a jail (including now)? No 10/09/2021 Personal Safety Answer Date Recorded Have you ever been in or are you currently in a harmful physical or emotional relationship or is someone making you feel afraid or unsafe? Denies 04/28/2024 Sex and Gender Information Value Date Recorded Sex Assigned at Not on file Legal Sex Male 11:53 PM DIRECTOR MOBILE Gender Identity Male 09/12/2023 11:52 AM CDT Sexual Orientation Straight 09/12/2023 11 :52 AM CDT Obstetrics History Last Filed Vital Signs Vital Sign Reading Time Taken Comments Blood Pressure 144/70 06/22/2024 10:29 AM DIRECTOR MOBILE Pulse 54 06/22/2024 10:29 AM DIRECTOR MOBILE Temperature 36.9 C (98.5 F) 06/22/2024 10:29 AM DIRECTOR MOBILE Respiratory Rate 18 06/11/2024 9:41 AM DIRECTOR MOBILE Oxygen Saturation 94% 06/22/2024 10: 29 AM DIRECTOR MOBILE Inhaled Oxygen Concentration - - Weight 108.1 kg (238 lb 4.8 oz) 025 10:29 AM DIRECTOR MOBILE Height 177.8 cm (5' 10 ) 06/22/2024 10: 29 AM DIRECTOR MOBILE Body Mass Index 34.19 06/22/2024 10:29 AM DIRECTOR MOBILE Plan of Treatment Upcoming Encounters Date Type Department Care Team (Late st Contact Info) Description 11/03/2024 12:00 PM CDT Hospital Encounter [address] [address] Rudy Mccarthy MD [address] [place] [address] DR [address] [place] [address] 11/03/2024 12:00 PM CDT - 11/03/2024 12:30 PM CDT Surgery [address] [address] Rudy Mccarthy MD [address] [place] [address] [place] [address] COLONOSCOPY Scheduled Procedures Name Priority Associated Diagnoses Date/Ti me COLONOSCOPY Colitis AVM (arteriovenous malformation) Family history of colon cancer 11/03/2024 12:00 PM CDT Health Maintenance Due Date Last Done Comments Prostate Cancer Screening-PSA 05/20/2024 05/20/2023, 11/17/2020, 07/07/2019, Additional history exists Colon Cancer Screening-Colonoscopy 04/28/2025 04/28/2024, 04/10/2019, 06/19/2016 Covid-19 Vaccine ( season) 2025 01/17/2024, 02/09/2023, 03/17/2022, Additional history exists Postponed from 07/16/2024 (Patient declined, but will receive in the future) DTaP/Tdap/Td Vaccine (2 - Td or Tdap) 05/07/2025 01/05/2009 Postponed from 01/05/2019 (Insurance / Financial) Depression Screening 05/07/2025 05/07/2024, 10/31/2023, 10/08/2023, Additional history exists Fall Risk Assessment 05/07/2025 05/07/2024, 04/28/2024, 10/31/2023, Additional history exists Well Visit 65+ 05/07/2025 05/07/2024, 04/22, 05/02/2022, Additional history exists Zoster Vaccine (1 of 2) 05/07/2025 Post poned from 10/28/1999 (Patient declined, but will receive in the future) Pneumococcal vaccine 65+ Completed 06/15/2016, 05/23 Hepatitis B Screening Completed 10/12/2022 Hepatitis C Screening Completed 10/12/2022, 017 Influenza Vaccine Completed 01/17/2024, , 03/17/2022, Additional history exists Colon Cancer Screening-CT Colonography Discontinued 04/28/2024, 04/10/2019, 06/19/2016 Colon Cancer Screening-DNA Stool Discontinued 04/28/2024, 04/10/2019, 06/19/2016 Colon Cancer Screening-FIT Discontinued 04/28, 04/10/2019, 06/18/2017, Additional history exists Colon Cancer Screening-Sigmoidoscopy Discontinued 04/28/2024, 04/10/2019, 06/19/2016 Abdominal Aortic Aneurysm (AAA) Screen Completed 06/17/2024 Procedures Procedure Name Priority Date/Time Associated Diagnosis Comments BLOOD MISC TO [place] Routine 06/22/2024 11:17 AM DIRECTOR MOBILE URIC ACID Routine 06/22/2024 11:17 AM DIRECTOR MOBILE CREST (calcinosis, Raynaud's phenomenon, esophageal dysfunction, sclerodactyly, telangiectasia) (HCC) PROTEIN / CREATININE RATIO, URINE, RANDOM Routine 06/22/2024 11:17 AM DIRECTOR MOBILE CREST (calcinosis, Raynaud's phenomenon, esophageal dysfunction, sclerodactyly, telangiectasia) (HCC) URINALYSIS AND REFLEX TO MICROSCOPIC AND CULTURE Routine 06/22/2024 11:17 AM DIRECTOR MOBILE CREST (calcinosis, Raynaud's phenomenon, esophageal dysfunction, sclerodactyly, telangiectasia) (HCC) CT ABDOMEN PELVIS WO CONTRAST Schedule Routine, Read Routine (OP Routine) 06/17/2024 10:53 AM DIRECTOR MOBILE Chronic liver disease CT CHEST WO CONTRAST Schedule Routine, Read Routine (OP Routine) 06/17/2024 10:53 AM DIRECTOR MOBILE Multiple pulmonary nodules EGFR Routine 06/10/2024 10:20 AM DIRECTOR MOBILE Chronic liver disease DIFFERENTIAL AUTO Routine 06/10/2024 10:20 AM DIRECTOR MOBILE Chronic liver disease FIBRINOGEN Routine 06/10/2024 10:20 AM DIRECTOR MOBILE Chronic liver disease [id number], TUMOR MARKER Routine 06/10/2024 10:20 AM DIRECTOR MOBILE Chronic liver disease Abnormal findings on diagnostic imaging of liver and biliary tract PROTIME-INR Routine 06/10/2024 10:20 AM DIRECTOR MOBILE Chronic liver disease COMPREHENSIVE METABOLIC PANEL Routine 10:20 AM DIRECTOR MOBILE Chronic liver disease CBC WITH AUTO DIFFERENTIAL Routine 06/10 10:20 AM DIRECTOR MOBILE Chronic liver disease DIFFERENTIAL AUTO Routine 06/10/2024 10:20 AM DIRECTOR MOBILE Iron deficiency anemia due to chronic blood loss CBC WITH AUTO DIFFERENTIAL Routine 06/10 10:20 AM DIRECTOR MOBILE Iron deficiency anemia due to chronic blood loss FERRITIN Routine 06/10/2024 10:20 AM DIRECTOR MOBILE Iron deficiency anemia due to chronic blood loss IRON PROFILE W/ IBC Routine 06/10/2024 10:20 AM DIRECTOR MOBILE Iron deficiency anemia due to chronic blood loss EGFR Routine 04/30/2024 10:31 AM DIRECTOR MOBILE Routine health maintenance DIFFERENTIAL AUTO Routine 04/30/2024 10:31 AM DIRECTOR MOBILE Routine health maintenance HEMOGLOBIN A1C Routine 04/30/2024 10:31 AM DIRECTOR MOBILE Routine health maintenance THYROID FUNCTION CASCADE Routine 025 10:31 AM DIRECTOR MOBILE Routine health maintenance LIPID PANEL Routine 04/30/2024 10:31 AM DIRECTOR MOBILE Routine health maintenance COMPREHENSIVE METABOLIC PANEL Routine 10:31 AM DIRECTOR MOBILE Routine health maintenance CBC WITH AUTO DIFFERENTIAL Routine 04/30 10:31 AM DIRECTOR MOBILE Routine health maintenance DIFFERENTIAL AUTO Routine 04/30/2024 9:25 AM DIRECTOR MOBILE CBC WITH AUTO DIFFERENTIAL Routine 04/30 9:25 AM DIRECTOR MOBILE Iron deficiency anemia due to chronic blood loss IRON PROFILE W/ IBC Routine 04/30/2024 9:15 AM DIRECTOR MOBILE Iron deficiency anemia due to chronic blood loss FERRITIN Routine 04/30/2024 9:15 AM DIRECTOR MOBILE Iron deficiency anemia due to chronic blood loss SURGICAL PATHOLOGY STAT 04/28/2024 1:53 PM DIRECTOR MOBILE Family history of colon cancer in mother History of colonic polyps Iron deficiency anemia, unspecified iron deficiency anemia type ENDO ADD ON ESOPHAGOGASTRODUODENOSCOPY BIOPSY 04/28/2024 8:02 AM DIRECTOR MOBILE Family history of colon cancer in mother Personal history of colonic polyps Iron deficiency anemia, unspecified iron deficiency anemia type ENDO ADD ON COLON BIOPSY 025 8:02 AM DIRECTOR MOBILE Family history of colon cancer in mother Personal history of colonic polyps Iron deficiency anemia, unspecified iron deficiency anemia type ESOPHAGOGASTRODUODENOSCOPY CONTROL BLEED 04/28/2024 8:02 AM DIRECTOR MOBILE Family history of colon cancer in mother Personal history of colonic polyps Iron deficiency anemia, unspecified iron deficiency anemia type COLON CONTROL BLEEDING 8:02 AM DIRECTOR MOBILE Family history of colon cancer in mother Personal history of colonic polyps Iron deficiency anemia, unspecified iron deficiency anemia type COLONOSCOPY 04/28/2024 7:12 AM DIRECTOR MOBILE EGD 04/28/2024 7:12 AM DIRECTOR MOBILE DIFFERENTIAL AUTO Routine 04/02/2024 9:00 AM DIRECTOR MOBILE 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 (HCC) Iron deficiency anemia due to chronic blood loss CBC WITH AUTO DIFFERENTIAL Routine 04/02 9:00 AM DIRECTOR MOBILE 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 (HCC) Iron deficiency anemia due to chronic blood loss FERRITIN Routine 04/02/2024 9:00 AM DIRECTOR MOBILE 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 (HCC) Iron deficiency anemia due to chronic blood loss FOLATE Routine 04/02/2024 9:00 AM DIRECTOR MOBILE Folic acid deficiency IRON PROFILE W/ IBC Routine 04/02/2024 9:00 AM DIRECTOR MOBILE Iron deficiency anemia due to chronic blood loss PSA SCREEN Routine 05/20/2023 10:28 AM DIRECTOR MOBILE Mixed hyperlipidemia Essential hypertension IGT (impaired glucose tolerance) Screening PSA (prostate specific antigen) HEPATITIS PANEL, ACUTE Routine 3 2:45 PM CDT Cirrhosis of liver without ascites, unspecified hepatic cirrhosis type (HCC) from Last 3 Months or Most Recently Relevant to Health Maintenance Results * Urinalysis reflex to microscopic and culture Urine, clean voided (06/22/2024 11:17 AM DIRECTOR MOBILE) Color, ur Straw Yellow Clarity, ur Clear Clear [facility] ([place]) Specific gravity, ur 1.010 1.003 - 1.030 [facility] ([place]) pH, urine 6.0 [facility] ([place]) Comment: Interpretive Data U rine pH is affected by diet, medications, systemic acid-base disturbances, and renal tubular function. pH may affect urinary stone formation. For example, urine pH below 6.0 may help reduce the tendency for calcium phosphate stones and pH greater than 6.0 may reduce the tendency for uric acid stone formation. Source: [facility] [place] Current Interpretive Data was last revised on 2017 Protein, ur ql Negative Negative [facility] ([place]) Glucose, ur ql Negative Negative [facility] ([place]) Ketones, ur Negative Negative [facility] ([place]) Bilirubin, ur Negative Negative [facility] ([place]) Blood, ur Negative Negative [facility] ([place]) Urobilinogen, ur <2.0 <2.0 mg/dL [facility] ([place]) Nitrite, ur Negative Negative [facility] ([place]) Leukocyte esterase, ur Negative Negative [facility] ([place]) UA reflex comment Reflex conditions for microscopic UA and culture not met. [facility] ([place]) Urine, clean voided 06/22/2024 11:17 AM DIRECTOR MOBILE 06/22/2024 1:07 PM DIRECTOR MOBILE us Natalya Peñaloza MD LAB MICROBIOLOGY - GENERAL ORDER SYED Final Result [facility] ([place]) [address] [facility] [place] [address] * Protein / creatinine ratio, urine, random (06/22/2024 11:17 AM DIRECTOR MOBILE) Protein, ur, quant 6.3 mg/dL Comment: Interpretive Data No reference range established. Current interpretive data was last revised 2018. Creatinine Ur 49.6 mg/dL [facility] ([place]) Comment: Interpretive Data No reference range established. Current interpretive data was last revised 2018. Protein/creatinin e ratio 127.0 0.0 - 180.0 mg/g CR [facility] ([place]) Urine 06/22/2024 11:1 7 AM DIRECTOR MOBILE 06/22/2024 1:07 PM DIRECTOR MOBILE Natalya Peñaloza MD LAB URINE ORDERABLES Final Resul t Performing Organization Address [facility] Co de Phone Number [facility] ([place]) [address] [facility] [place] [address] * (ABNORMAL) Uric acid (06/22/2024 11:17 AM DIRECTOR MOBILE) Uric acid 9.2(H) 3.0 - 8.0 mg/dL Blood 06/22/2024 11:1 7 AM DIRECTOR MOBILE 06/22/2024 1:07 PM DIRECTOR MOBILE Natalya Peñaloza MD LAB BLOOD ORDERABLES Final Resul t Performing Organization Address City/[facility] Co de Phone Number [facility] ([place]) [address] [facility] [place] [address] * CT Abdomen Pelvis WO Contrast (06/17/2024 10:53 AM DIRECTOR MOBILE) Anatomical Region Laterality Modality Body N/A Computed Tomogra phy 06/21/2024 9:40 AM DIRECTOR MOBILE Narrative 06/21/2024 10:05 AM DIRECTOR MOBILE EXAM DESCRIPTION: CT chest and ABDOMEN PELVIS WO CONTRAST REASON FOR STUDY: assess chronic liver findings Chronic liver disease TECHNIQUE: CT scan of the chest, abdomen and pelvis performed without intravenous and without oral contrast using helical scanning technique. Reconstructed coronal and sagittal MPR images reviewed. All images stored on PACS. Automated exposure control was used as a dose optimization technique for this examination. COMPARISON: 11/21/2023 CT chest FINDINGS: The sensitivity for detection of visceral lesions is diminished without the use of intravenous contrast. CHEST: Central airways patent. Numerous nodular densities remain throughout the lung clarke and are unchanged. Right lower lobe ill-defined ground-glass opacity over a 2 cm region current image 61 of series 3 generally unchanged though slightly less prominent. Right lower lobe subtle plaque-like density laterally current image 66 is improving from previous. Right upper lobe pleural-based opacity measuring 1.8 x 1.6 cm generally unchanged current image 50. Right upper lobe 0.7 cm nodular density current image 60 unchanged. Right upper lobe peribronchovascular nodular density measuring 1.1 cm unchanged current image 41. Right upper lobe ground-glass opacity current image 39 much improved from previous. Right middle lobe 1.3 x 0.8 cm nodule current image 67 is unchanged. Right lower lobe 1.2 cm slightly ground-glass nodular density image 73 unchanged. Left upper lobe posterior ground-glass opacity current image 26 measures 1.0 cm, previously 0.8 cm. Left upper lobe anterior more solid appearing nodule image 38 measures 1.1 cm, previously 0.7 cm. Left upper lobe medial 1.0 cm nodule image 44 unchanged. Left upper lobe 1.2 cm nodule previous image 49 has improved with subtle residual interstitial density. Lingular medial pleural-based nodule current image 64 generally unchanged measuring 1.1 cm. Pleural surfaces demonstrate no effusion or pneumothorax. Mediastinum demonstrates nonenlarged multiple lymph nodes retrocaval pretracheal space, subcarinal space, AP window. Additional retroaortic soft tissue thickening in the retrocrural region increased from previous currently measuring 2.7 by 1.7 cm on image 91 of series 2. Subcentimeter hypodensity left lobe unchanged. Esophagus demonstrates fluid and air filled moderate distention unchanged. Adjacent paraesophageal nonenlarged lymph nodes in the retrocrural region. Heart size is enlarged. Coronary arterial calcifications are demonstrated. Vascularity demonstrates no acute findings. Axilla demonstrates surgical clips on the right. No marked adenopathy. Abdomen: LIVER: Normal size. No identified cystic or solid masses. GALLBLADDER: Normally distended BILE DUCTS: No intrahepatic or extrahepatic ductal dilatation. SPLEEN: Normal size. No focal lesions. PANCREAS: No identified cystic or solid masses. No significant calcifications. No adjacent inflammation or peripancreatic fluid collections. Pancreatic duct not dilated. ADRENALS: Left adrenal thickening is unchanged. KIDNEYS/URINARY TRACT: No identified significant cystic or solid masses. No stones. No hydronephrosis or hydroureter. Urinary bladder is unremarkable. GI: No dilated bowel loops. No obvious wall thickening. Appendix is not visualized. No significant diverticular disease. PERITONEUM: No ascites or free air. RETROPERITONEUM: No mass or adenopathy. REPRODUCTIVE: No significant abnormality. VASCULATURE: No abdominal aortic aneurysm. MUSCULOSKELETAL: No significant abnormality. OTHER: No other abnormality. IMPRESSION: Numerous lung nodules are again demonstrated. Some are improved while others are slightly larger and some are new. Please correlate clinically and with history of malignancy. Mediastinal adenopathy is again demonstrated with increasing soft tissue density in the retrocrural region as evidence of potential worsening metastatic disease. Left adrenal thickening unchanged. Subcentimeter hypodensity left lobe of thyroid unchanged. No acute abdominal or pelvic abnormality. THIS IS AN ELECTRONICALLY VERIFIED FINAL REPORT 06/21/2024 10:05 AM - Electronically signed by Kareem Osman M.D. RB: JE[place] Report ID: [id number] Reading Location: [place] [address] Procedure Note Kareem Osman MD - 06/21/2024 EXAM DESCRIPTION: CT chest and ABDOMEN PELVIS WO CONTRAST REASON FOR STUDY: assess chronic liver findings Chronic liver disease TECHNIQUE: CT scan of the chest, abdomen and pelvis performed without intravenous and without oral contrast using helical scanning technique. Reconstructed coronal and sagittal MPR images reviewed. All images storedon PACS. Automated exposure control was used as a dose optimization techniquefor this examination. COMPARISON: 11/21/2023 CT chest FINDINGS: The sensitivity for detection of visceral lesions is diminished withoutthe use of intravenous contrast. CHEST: Central airways patent. Numerous nodular densities remain throughout the lung clarke and are unchanged. Right lower lobe ill-defined ground-glass opacity over a 2 cm regioncurrent image 61 of series 3 generally unchanged though slightly less prominent. Right lower lobe subtle plaque-like density laterally current image 66 is improving from previous. Right upper lobe pleural-based opacity measuring 1.8 x 1.6 cm generally unchanged current image 50. Right upper lobe 0.7 cm nodular density current image 60 unchanged. Right upper lobe peribronchovascular nodular density measuring 1.1 cm unchanged current image 41. Right upper lobe ground-glass opacity current image 39 much improved from previous. Right middle lobe 1.3 x 0.8 cm nodule current image 67 is unchanged. Right lower lobe 1.2 cm slightly ground-glass nodular density image 73 unchanged. Left upper lobe posterior ground-glass opacity current image 26 measures1.0 cm, previously 0.8 cm. Left upper lobe anterior more solid appearing nodule image 38 measures 1.1cm, previously 0.7 cm. Left upper lobe medial 1.0 cm nodule image 44 unchanged. Left upper lobe 1.2 cm nodule previous image 49 has improved with subtle residual interstitial density. Lingular medial pleural-based nodule current image 64 generally unchanged measuring 1.1 cm. Pleural surfaces demonstrate no effusion or pneumothorax. Mediastinum demonstrates nonenlarged multiple lymph nodes retrocaval pretracheal space, subcarinal space, AP window. Additional retroaorticsoft tissue thickening in the retrocrural region increased from previouscurrently measuring 2.7 by 1.7 cm on image 91 of series 2. Subcentimeter hypodensity left lobe unchanged. Esophagus demonstrates fluid and air filled moderate distention unchanged. Adjacent paraesophageal nonenlarged lymph nodes in the retrocruralregion. Heart size is enlarged. Coronary arterial calcifications aredemonstrated. Vascularity demonstrates no acute findings. Axilla demonstrates surgical clips on the right. No marked adenopathy. Abdomen: LIVER: Normal size. No identified cystic or solid masses. GALLBLADDER: Normally distended BILE DUCTS: No intrahepatic or extrahepatic ductal dilatation. SPLEEN: Normal size. No focal lesions. PANCREAS: No identified cystic or solid masses. No significant calcifications. No adjacent inflammation or peripancreatic fluidcollections. Pancreatic duct not dilated. ADRENALS: Left adrenal thickening is unchanged. KIDNEYS/URINARY TRACT: No identified significant cystic or solid masses.No stones. No hydronephrosis or hydroureter. Urinary bladder isunremarkable. GI: No dilated bowel loops. No obvious wall thickening. Appendix is not visualized. No significant diverticular disease. PERITONEUM: No ascites or free air. RETROPERITONEUM: No mass or adenopathy. REPRODUCTIVE: No significant abnormality. VASCULATURE: No abdominal aortic aneurysm. MUSCULOSKELETAL: No significant abnormality. OTHER: No other abnormality. IMPRESSION: Numerous lung nodules are again demonstrated. Some are improved whileothers are slightly larger and some are new. Please correlate clinically andwith history of malignancy. Mediastinal adenopathy is again demonstrated with increasing soft tissue density in the retrocrural region as evidence of potential worsening metastatic disease. Left adrenal thickening unchanged. Subcentimeter hypodensity left lobe of thyroid unchanged. No acute abdominal or pelvic abnormality. THIS IS AN ELECTRONICALLY VERIFIED FINAL REPORT 06/21/2024 10:05 AM - Electronically signed by Kareem Osman M.D. RB: [place] Report ID: [id number] Reading Location: [place] [address] PROCEDURES Final Result * CT chest without contrast (06/17/2024 10:53 AM DIRECTOR MOBILE) Anatomical Region Laterality Modality Body N/A Computed Tomogra phy 06/21/2024 10:0 5 AM DIRECTOR MOBILE Narrative 06/21/2024 10:06 AM DIRECTOR MOBILE EXAM DESCRIPTION: CT chest and ABDOMEN PELVIS WO CONTRAST REASON FOR STUDY: Lung nodule, > 8mm F/u on lung nodules TECHNIQUE: CT scan of the chest, abdomen and pelvis performed without intravenous and without oral contrast using helical scanning technique. Reconstructed coronal and sagittal MPR images reviewed. All images stored on PACS. Automated exposure control was used as a dose optimization technique for this examination. COMPARISON: 11/21/2023 CT chest FINDINGS: The sensitivity for detection of visceral lesions is diminished without the use of intravenous contrast. CHEST: Central airways patent. Numerous nodular densities remain throughout the lung clarke and are unchanged. Right lower lobe ill-defined ground-glass opacity over a 2 cm region current image 61 of series 3 generally unchanged though slightly less prominent. Right lower lobe subtle plaque-like density laterally current image 66 is improving from previous. Right upper lobe pleural-based opacity measuring 1.8 x 1.6 cm generally unchanged current image 50. Right upper lobe 0.7 cm nodular density current image 60 unchanged. Right upper lobe peribronchovascular nodular density measuring 1.1 cm unchanged current image 41. Right upper lobe ground-glass opacity current image 39 much improved from previous. Right middle lobe 1.3 x 0.8 cm nodule current image 67 is unchanged. Right lower lobe 1.2 cm slightly ground-glass nodular density image 73 unchanged. Left upper lobe posterior ground-glass opacity current image 26 measures 1.0 cm, previously 0.8 cm. Left upper lobe anterior more solid appearing nodule image 38 measures 1.1 cm, previously 0.7 cm. Left upper lobe medial 1.0 cm nodule image 44 unchanged. Left upper lobe 1.2 cm nodule previous image 49 has improved with subtle residual interstitial density. Lingular medial pleural-based nodule current image 64 generally unchanged measuring 1.1 cm. Pleural surfaces demonstrate no effusion or pneumothorax. Mediastinum demonstrates nonenlarged multiple lymph nodes retrocaval pretracheal space, subcarinal space, AP window. Additional retroaortic soft tissue thickening in the retrocrural region increased from previous currently measuring 2.7 by 1.7 cm on image 91 of series 2. Subcentimeter hypodensity left lobe unchanged. Esophagus demonstrates fluid and air filled moderate distention unchanged. Adjacent paraesophageal nonenlarged lymph nodes in the retrocrural region. Heart size is enlarged. Coronary arterial calcifications are demonstrated. Vascularity demonstrates no acute findings. Axilla demonstrates surgical clips on the right. No marked adenopathy. Abdomen: LIVER: Normal size. No identified cystic or solid masses. GALLBLADDER: Normally distended BILE DUCTS: No intrahepatic or extrahepatic ductal dilatation. SPLEEN: Normal size. No focal lesions. PANCREAS: No identified cystic or solid masses. No significant calcifications. No adjacent inflammation or peripancreatic fluid collections. Pancreatic duct not dilated. ADRENALS: Left adrenal thickening is unchanged. KIDNEYS/URINARY TRACT: No identified significant cystic or solid masses. No stones. No hydronephrosis or hydroureter. Urinary bladder is unremarkable. GI: No dilated bowel loops. No obvious wall thickening. Appendix is not visualized. No significant diverticular disease. PERITONEUM: No ascites or free air. RETROPERITONEUM: No mass or adenopathy. REPRODUCTIVE: No significant abnormality. VASCULATURE: No abdominal aortic aneurysm. MUSCULOSKELETAL: No significant abnormality. OTHER: No other abnormality. IMPRESSION: Numerous lung nodules are again demonstrated. Some are improved while others are slightly larger and some are new. Please correlate clinically and with history of malignancy. Mediastinal adenopathy is again demonstrated with increasing soft tissue density in the retrocrural region as evidence of potential worsening metastatic disease. Left adrenal thickening unchanged. Subcentimeter hypodensity left lobe of thyroid unchanged. No acute abdominal or pelvic abnormality. THIS IS AN ELECTRONICALLY VERIFIED FINAL REPORT 06/21/2024 10:06 AM - Electronically signed by Kareem Osman M.D. RB: [place] Report ID: [id number] Reading Location: [id number] Procedure Note Kareem Osman MD - 06/21/2024 EXAM DESCRIPTION: CT chest and ABDOMEN PELVIS WO CONTRAST REASON FOR STUDY: Lung nodule, > 8mm F/u on lung nodules TECHNIQUE: CT scan of the chest, abdomen and pelvis performed without intravenous and without oral contrast using helical scanning technique. Reconstructed coronal and sagittal MPR images reviewed. All images storedon PACS. Automated exposure control was used as a dose optimization techniquefor this examination. COMPARISON: 11/21/2023 CT chest FINDINGS: The sensitivity for detection of visceral lesions is diminished withoutthe use of intravenous contrast. CHEST: Central airways patent. Numerous nodular densities remain throughout the lung clarke and are unchanged. Right lower lobe ill-defined ground-glass opacity over a 2 cm regioncurrent image 61 of series 3 generally unchanged though slightly less prominent. Right lower lobe subtle plaque-like density laterally current image 66 is improving from previous. Right upper lobe pleural-based opacity measuring 1.8 x 1.6 cm generally unchanged current image 50. Right upper lobe 0.7 cm nodular density current image 60 unchanged. Right upper lobe peribronchovascular nodular density measuring 1.1 cm unchanged current image 41. Right upper lobe ground-glass opacity current image 39 much improved from previous. Right middle lobe 1.3 x 0.8 cm nodule current image 67 is unchanged. Right lower lobe 1.2 cm slightly ground-glass nodular density image 73 unchanged. Left upper lobe posterior ground-glass opacity current image 26 measures1.0 cm, previously 0.8 cm. Left upper lobe anterior more solid appearing nodule image 38 measures 1.1cm, previously 0.7 cm. Left upper lobe medial 1.0 cm nodule image 44 unchanged. Left upper lobe 1.2 cm nodule previous image 49 has improved with subtle residual interstitial density. Lingular medial pleural-based nodule current image 64 generally unchanged measuring 1.1 cm. Pleural surfaces demonstrate no effusion or pneumothorax. Mediastinum demonstrates nonenlarged multiple lymph nodes retrocaval pretracheal space, subcarinal space, AP window. Additional retroaorticsoft tissue thickening in the retrocrural region increased from previouscurrently measuring 2.7 by 1.7 cm on image 91 of series 2. Subcentimeter hypodensity left lobe unchanged. Esophagus demonstrates fluid and air filled moderate distention unchanged. Adjacent paraesophageal nonenlarged lymph nodes in the retrocruralregion. Heart size is enlarged. Coronary arterial calcifications aredemonstrated. Vascularity demonstrates no acute findings. Axilla demonstrates surgical clips on the right. No marked adenopathy. Abdomen: LIVER: Normal size. No identified cystic or solid masses. GALLBLADDER: Normally distended BILE DUCTS: No intrahepatic or extrahepatic ductal dilatation. SPLEEN: Normal size. No focal lesions. PANCREAS: No identified cystic or solid masses. No significant calcifications. No adjacent inflammation or peripancreatic fluidcollections. Pancreatic duct not dilated. ADRENALS: Left adrenal thickening is unchanged. KIDNEYS/URINARY TRACT: No identified significant cystic or solid masses.No stones. No hydronephrosis or hydroureter. Urinary bladder isunremarkable. GI: No dilated bowel loops. No obvious wall thickening. Appendix is not visualized. No significant diverticular disease. PERITONEUM: No ascites or free air. RETROPERITONEUM: No mass or adenopathy. REPRODUCTIVE: No significant abnormality. VASCULATURE: No abdominal aortic aneurysm. MUSCULOSKELETAL: No significant abnormality. OTHER: No other abnormality. IMPRESSION: Numerous lung nodules are again demonstrated. Some are improved whileothers are slightly larger and some are new. Please correlate clinically andwith history of malignancy. Mediastinal adenopathy is again demonstrated with increasing soft tissue density in the retrocrural region as evidence of potential worsening metastatic disease. Left adrenal thickening unchanged. Subcentimeter hypodensity left lobe of thyroid unchanged. No acute abdominal or pelvic abnormality. THIS IS AN ELECTRONICALLY VERIFIED FINAL REPORT 06/21/2024 10:06 AM - Electronically signed by Kareem Osman M.D. RB: JEFFERSON Report ID: [id number] Reading Location: [id number] us Jose Brunson MD IMG CT PROCEDURES Final Result * (ABNORMAL) eGFR (06/10/2024 10:20 AM DIRECTOR MOBILE) eGFR 54(L) >=60 mL/min/1. 73 m2 Comment: Interpretive Data Reference Interval Normal >/= 90 mL/min/1.73m2 Mildly decreased* 60 - 89 mL/min/1.73m2 Mildly to moderately decreased 45 - 59 mL/min/1.73m2 Moderately to severely decreased 30 - 44 mL/min/1.73m2 Severely decreased 15 - 29 mL/min/1.73m2 Kidney Failure < 15 mL/min/1.73m2 *Relative to young adult level Estimated glomerular filtration rate is determined by the 2020 CKD-EPI equation recommended by the National Kidney Foundation (A Unifying Approach to GFR Estimation: Recommendations of the NKF-ASK Task Force on Reassessing the Inclusion of Race in Diagnosing Kidney Disease, JASN 2020). The CKD-EPI equation should not be used for patients with unstable renal function and has not been validated in children and those over 70. Current interpretive data was last reviewed 2021. Blood 06/10/2024 10:2 0 AM DIRECTOR MOBILE 06/10/2024 1:51 PM DIRECTOR MOBILE us Radha LEACH LAB BLOOD ORDERABLES Fin al Result [facility] ([place]) 1 [facility] [place] [address] * (ABNORMAL) Differential, auto (06/10/2024 10:20 AM DIRECTOR MOBILE) Neutrophil abs 5.3 1.5 - 6.5 K/cumm Imm gran abs 0.0 0.0 - 0.1 K/cumm [facility] ([place]) Lymphocyte abs 0.6(L) 0.8 - 3.3 K/cumm [facility] ([place]) Monocyte abs 0.5 0.2 - 0.8 K/cumm [facility] ([place]) Eosinophil abs 0.3 0.0 - 0.5 K/cumm [facility] ([place]) Basophil abs 0.1 0.0 - 0.1 K/cumm [facility] ([place]) Neutrophil pct 77.9 % [facility] ([place]) Comment: Interpretive Data Percent cell count reference ranges are not reported, since discordance with absolute values may lead to misinterpretation of CBC data. Current Interpretive Data was last revised on 2017. Imm gran pct 0.6 % [facility] ([place]) Comment: Interpretive Data Percent cell count reference ranges are not reported, since discordance with absolute values may lead to misinterpretation of CBC data. Current Interpretive Data was last revised on 2017. Lymphocyte pct 9.4 % [facility] ([place]) Comment: Interpretive Data Percent cell count reference ranges are not reported, since discordance with absolute values may lead to misinterpretation of CBC data. Current Interpretive Data was last revised on 2017. Monocyte pct 7.0 % [facility] ([place]) Comment: Interpretive Data Percent cell count reference ranges are not reported, since discordance with absolute values may lead to misinterpretation of CBC data. Current Interpretive Data was last revised on 2017. Eosinophil pct 4.1 % [facility] ([place]) Comment: Interpretive Data Percent cell count reference ranges are not reported, since discordance with absolute values may lead to misinterpretation of CBC data. Current Interpretive Data was last revised on 2017. Basophil pct 1.0 % [facility] ([place]) Comment: Interpretive Data Percent cell count reference ranges are not reported, since discordance with absolute values may lead to misinterpretation of CBC data. Current Interpretive Data was last revised on 2017. Blood 06/10/2024 10:2 0 AM DIRECTOR MOBILE 06/10/2024 1:58 PM DIRECTOR MOBILE us Radha LEACH LAB BLOOD ORDERABLES Fin al Result [facility] ([place]) 1 [facility] Department [place] [address] * (ABNORMAL) Differential, auto (06/10/2024 10:20 AM DIRECTOR MOBILE) Neutrophil abs 5.3 1.5 - 6.5 K/cumm Comment:Testing performed by : [place], [address] Imm gran abs 0.0 0.0 - 0.1 K/cumm [facility] ([place]) Comment:Testing performed by : [facility], [place], [address] Lymphocyte abs 0.6(L) 0.8 - 3.3 K/cumm [facility] ([place]) Comment:Testing performed by : [facility], [place], [address] Monocyte abs 0.4 0.2 - 0.8 K/cumm [facility] ([place]) Comment:Testing performed by : [facility], [place], [address] Eosinophil abs 0.3 0.0 - 0.5 K/cumm [facility] ([place]) Comment:Testing performed by : [place], [address] Basophil abs 0.1 0.0 - 0.1 K/cumm [facility] ([place]) Comment:Testing performed by : [facility], [place], [address] Neutrophil pct 79.7 % [facility] ([place]) Comment: Interpretive Data Percent cell count reference ranges are not reported, since discordance with absolute values may lead to misinterpretation of CBC data. Current Interpretive Data was last revised on 2017. Testing performed by: [facility], [place], [address] Imm gran pct 0.4 % [facility] ([place]) Comment: Interpretive Data Percent cell count reference ranges are not reported, since discordance with absolute values may lead to misinterpretation of CBC data. Current Interpretive Data was last revised on 2017. Testing performed by: [facility], [place], [address] Lymphocyte pct 8.7 % [facility] ([place]) Comment: Interpretive Data Percent cell count reference ranges are not reported, since discordance with absolute values may lead to misinterpretation of CBC data. Current Interpretive Data was last revised on 2017. Testing performed by: [facility], [place], [address] Monocyte pct 6.3 % [facility] ([place]) Comment: Interpretive Data Percent cell count reference ranges are not reported, since discordance with absolute values may lead to misinterpretation of CBC data. Current Interpretive Data was last revised on 2017. Testing performed by: [facility], [facility], [place], [address] Eosinophil pct 4.0 % [facility] ([place]) Comment: Interpretive Data Percent cell count reference ranges are not reported, since discordance with absolute values may lead to misinterpretation of CBC data. Current Interpretive Data was last revised on 2017. Testing performed by: [facility], [place], [address] Basophil pct 0.9 % [facility] ([place]) Comment: Interpretive Data Percent cell count reference ranges are not reported, since discordance with absolute values may lead to misinterpretation of CBC data. Current Interpretive Data was last revised on 2017. Testing performed by: [facility], [place], [address] Blood 06/10/2024 10:2 0 AM DIRECTOR MOBILE 06/10/2024 10:24 AM DIRECTOR MOBILE us Kareem Figueroa MD LAB BLOOD ORDERABLES Ivory l Result [facility] ([place]) 1 [facility] Department [place] [address] * Iron profile w/ IBC (06/10/2024 10:20 AM DIRECTOR MOBILE) Iron 87 50 - 150 mcg/dL Comment:Testing performed by : [facility], [place], [address] TIBC 278 250 - 400 mcg/dL [facility] ([place]) Comment:Testing performed by : [facility], [place], [address] Transferrin saturation 31 20 - 50 % [facility] ([place]) Comment:Testing performed by : [facility], [facility], [place], [address] Blood 06/10/2024 10:2 0 AM DIRECTOR MOBILE 06/10/2024 10:47 AM DIRECTOR MOBILE us Kareem Figueroa MD LAB BLOOD ORDERABLES Ivory l Result [facility] ([place]) [facility] [place] [address] * (ABNORMAL) CBC with auto differential (06/10/2024 10:20 AM DIRECTOR MOBILE) WBC 6.8 3.8 - 9.9 K/cumm Hgb 10.3(L) 13.0 - 17.5 g/dL [facility] ([place]) Hct 33.0(L) 38.9 - 50.3 % [facility] ([place]) Plt 270 150 - 400 K/cumm [facility] ([place]) MPV 10.7 9.1 - 12.3 fL [facility] ([place]) RBC 3.22(L) 4.30 - 5.80 M/cumm [facility] ([place]) MCV 102.5(H) 81.3 - 96.4 fL [facility] ([place]) MCH 32.0 27.1 - 33.3 pg [facility] ([place]) MCHC 31.2(L) 32.3 - 35.7 g/dL [facility] ([place]) RDW CV 15.1(H) 11.1 - 14.9 % [facility] ([place]) RDW SD 57.4(H) 35.7 - 48.1 fL [facility] ([place]) NRBC abs 0.00 0.00 - 0.01 K/cumm [facility] ([place]) Blood 06/10/2024 10:2 0 AM DIRECTOR MOBILE 06/10/2024 1:58 PM DIRECTOR MOBILE us Radha LEACH LAB BLOOD ORDERABLES Fin al Result [facility] ([place]) [facility] Department [place] [address] * (ABNORMAL) CBC with auto differential (06/10/2024 10:20 AM DIRECTOR MOBILE) WBC 6.7 3.8 - 9.9 K/cumm Comment:Testing performed by : [place], [address] Hgb 10.3(L) 13.0 - 17.5 g/dL [facility] ([place]) Comment:Testing performed by : [place], [address] Hct 33.0(L) 38.9 - 50.3 % [facility] ([place]) Comment:Testing performed by : [place], [address] Plt 262 150 - 400 K/cumm [facility] ([place]) Comment:Testing performed by : [place], [address] MPV 9.8 9.1 - 12.3 fL [facility] ([place]) Comment:Testing performed by : [place], [address] RBC 3.25(L) 4.30 - 5.80 M/cumm [facility] ([place]) Comment:Testing performed by : [place], [address] MCV 101.5(H) 81.3 - 96.4 fL [facility] ([place]) Comment:Testing performed by : [place], [address] MCH 31.7 27.1 - 33.3 pg [facility] ([place]) Comment:Testing performed by : [place], [address] MCHC 31.2(L) 32.3 - 35.7 g/dL [facility] ([place]) Comment:Testing performed by : [place], [address] RDW CV 15.2(H) 11.1 - 14.9 % [facility] ([place]) Comment:Testing performed by : [place], [address] RDW SD 56.8(H) 35.7 - 48.1 fL [facility] ([place]) Comment:Testing performed by : [facility], [facility], [place], [address] NRBC abs 0.00 0.00 - 0.01 K/cumm [facility] ([place]) Comment:Testing performed by : [facility], [facility], [place], [address] Blood 06/10/2024 10:2 0 AM DIRECTOR MOBILE 06/10/2024 10:24 AM DIRECTOR MOBILE us Kareem Figueroa MD LAB BLOOD ORDERABLES Ivory l Result Performing Organization Address City/[facility]/ZIP Co de Phone Number [facility] ([place]) [address] [place] [address] Department [place] [address] * [id number], Tumor Marker (06/10/2024 10:20 AM DIRECTOR MOBILE) alpha Fetoprotein <2.0 <=8.3 ng/mL Comment: Interpretive Data The Tyshawn AFP assay procedure was used. Results from different manufacturers or methods may not be comparable. Serial testing should be performed using the same method. 0-1 month. AFP concentrations may reach or exceed 100,000 ng/mL after depending on gestational age and weight. 1-3 months 50 1000 ng/ml 3-6 months 10 500 ng/ml 6-12 months 3.0 100 ng/ml >1 year 0.0 8.3 ng/ml References Lindsay Y. et al. J. Ped Surg 1978;13:155-156 Brent S. et al. Clin Chem Lab Med 2018;57:783-797 Abby Germain et al. Clin Chem 2014;4308-2902. Current interpretive data was last revised 2021. Testing performed by: [facility], [address] [place]., [address] Blood 06/10/2024 10:2 0 AM DIRECTOR MOBILE 06/10/2024 4:14 PM DIRECTOR MOBILE us Radha LEACH LAB BLOOD ORDERABLES Fin al Result [facility] ([place]) 1 [facility] [place] [address] * Protime-INR (06/10/2024 10:20 AM DIRECTOR MOBILE) PT 11.2 9.7 - 13.0 sec [facility] ([place]) INR 1.04 0.90 - 1.20 [facility] ([place]) Comment: Interpretive data Oral anticoagulant therapeutic ranges: Venous thromboembolism prophylaxis or treatment: 2.0-3.0 CARDIOLOGY Standard range: 2.0-3.0 High-intensity range: 2.5-3.5 Refer to indication-specific guidelines for appropriate target ranges for prosthetic heart valve replacement. Current interpretive data was last revised on 2019. Blood 06/10/2024 10:2 0 AM DIRECTOR MOBILE 06/10/2024 1:51 PM DIRECTOR MOBILE Radha LEACH LAB BLOOD ORDERABLES Fin al Result Performing Organization Address City/[facility]/ZIP Co de Phone Number [facility] ([place]) [facility] [place] [address] * (ABNORMAL) Fibrinogen (06/10/2024 10:20 AM DIRECTOR MOBILE) Fibrinogen 526(H) 170 - 400 mg/dL [facility] ([place]) Blood 06/10/2024 10:2 0 AM DIRECTOR MOBILE 06/10/2024 1:51 PM DIRECTOR MOBILE Radha LEACH LAB BLOOD ORDERABLES Fin al Result [facility] ([place]) 1 [facility] [place] [address] * Ferritin (06/10/2024 10:20 AM DIRECTOR MOBILE) Ferritin 53 30 - 400 ng/mL Comment:Testing performed by : [facility], [facility], [place], [address] Blood 06/10/2024 10:2 0 AM DIRECTOR MOBILE 06/10/2024 10:47 AM DIRECTOR MOBILE us Kareem Figueroa MD LAB BLOOD ORDERABLES Ivory lutz Result [facility] ([place]) [facility] [place] [address] * (ABNORMAL) Comprehensive metabolic panel (06/10/2024 10:20 AM DIRECTOR MOBILE) Sodium 135 135 - 145 mmol/L Potassium, pl 4.1 3.3 - 4.9 mmol/L [facility] ([place]) Chloride 101 97 - 110 mmol/L [facility] ([place]) CO2 24 22 - 32 mmol/L [facility] ([place]) Anion gap 10 2 - 15 mmol/L [facility] ([place]) BUN 22 6 - 25 mg/dL [facility] ([place]) Creatinine 1.38(H) 0.80 - 1.30 mg/dL [facility] ([place]) Glucose 96 70 - 199 mg/dL [facility] ([place]) Comment: Interpretive Data Fasting glucose >/= 126 mg/dl is diagnostic for diabetes. Fasting is defined as no caloric intake for at least 8 hours. Fasting glucose between 100 mg/dl to 125 mg/dl is diagnostic of prediabetes. In a patient with classic symptoms of hyperglycemia or hyperglycemic crisis, a random glucose >/= 200 mg/dl is diagnostic for diabetes. In the absence of unequivocal hyperglycemia, results should be confirmed by repeat testing. The classification and Diagnosis of Diabetes Diabetes Care 2021; 46: S19-S40. Current interpretive data was last revised 2022. Calcium 10.6(H) 8.5 - 10.3 mg/dL [facility] ([place]) Bilirubin, total 0.3 0.1 - 1.2 mg/dL [facility] ([place]) Protein, pl 8.4 6.5 - 8.5 g/dL [facility] ([place]) Albumin 4.3 3.5 - 5.0 g/dL [facility] ([place]) Alk phos 150(H) 40 - 130 Units/L [facility] ([place]) ALT 9 7 - 55 Units/L [facility] ([place]) AST 20 10 - 50 Units/L [facility] ([place]) Blood 06/10/2024 10:2 0 AM DIRECTOR MOBILE 06/10/2024 1:51 PM DIRECTOR MOBILE us Radha LEACH LAB BLOOD ORDERABLES Fin al Result [facility] ([place]) 1 [facility] [place] [address] * (ABNORMAL) eGFR (04/30/2024 10:31 AM DIRECTOR MOBILE) eGFR 42(L) >=60 mL/min/1. 73 m2 Comment: Interpretive Data Reference Interval Normal >/= 90 mL/min/1.73m2 Mildly decreased* 60 - 89 mL/min/1.73m2 Mildly to moderately decreased 45 - 59 mL/min/1.73m2 Moderately to severely decreased 30 - 44 mL/min/1.73m2 Severely decreased 15 - 29 mL/min/1.73m2 Kidney Failure < 15 mL/min/1.73m2 *Relative to young adult level Estimated glomerular filtration rate is determined by the 2020 CKD-EPI equation recommended by the National Kidney Foundation (A Unifying Approach to GFR Estimation: Recommendations of the NKF-ASK Task Force on Reassessing the Inclusion of Race in Diagnosing Kidney Disease, JASN 2020). The CKD-EPI equation should not be used for patients with unstable renal function and has not been validated in children and those over 70. Current interpretive data was last reviewed 2021. Blood 04/30/2024 10:3 1 AM DIRECTOR MOBILE 04/30/2024 2:03 PM DIRECTOR MOBILE us Rand Chong MD LAB BLOOD ORDERABLES Final Result [facility] ([place]) 1 [facility] [place] [address] * (ABNORMAL) Differential, auto (04/30/2024 10:31 AM DIRECTOR MOBILE) Neutrophil abs 5.0 1.5 - 6.5 K/cumm Imm gran abs 0.0 0.0 - 0.1 K/cumm [facility] ([place]) Lymphocyte abs 0.5(L) 0.8 - 3.3 K/cumm [facility] ([place]) Monocyte abs 0.4 0.2 - 0.8 K/cumm [facility] ([place]) Eosinophil abs 0.1 0.0 - 0.5 K/cumm [facility] ([place]) Basophil abs 0.0 0.0 - 0.1 K/cumm [facility] ([place]) Neutrophil pct 81.6 % [facility] ([place]) Comment: Interpretive Data Percent cell count reference ranges are not reported, since discordance with absolute values may lead to misinterpretation of CBC data. Current Interpretive Data was last revised on 2017. Imm gran pct 0.7 % [facility] ([place]) Comment: Interpretive Data Percent cell count reference ranges are not reported, since discordance with absolute values may lead to misinterpretation of CBC data. Current Interpretive Data was last revised on 2017. Lymphocyte pct 8.7 % [facility] ([place]) Comment: Interpretive Data Percent cell count reference ranges are not reported, since discordance with absolute values may lead to misinterpretation of CBC data. Current Interpretive Data was last revised on 2017. Monocyte pct 7.2 % [facility] ([place]) Comment: Interpretive Data Percent cell count reference ranges are not reported, since discordance with absolute values may lead to misinterpretation of CBC data. Current Interpretive Data was last revised on 2017. Eosinophil pct 1.1 % [facility] ([place]) Comment: Interpretive Data Percent cell count reference ranges are not reported, since discordance with absolute values may lead to misinterpretation of CBC data. Current Interpretive Data was last revised on 2017. Basophil pct 0.7 % [facility] ([place]) Comment: Interpretive Data Percent cell count reference ranges are not reported, since discordance with absolute values may lead to misinterpretation of CBC data. Current Interpretive Data was last revised on 2017. Blood 04/30/2024 10:3 1 AM DIRECTOR MOBILE 04/30/2024 2:03 PM DIRECTOR MOBILE Rand Chong MD LAB BLOOD ORDERABLES Final Result [facility] ([place]) 1 [facility] [place] [address] * Thyroid Function [place] (04/30/2024 10:31 AM DIRECTOR MOBILE) [facility] TSH 3.24 0.30 - 4.20 mcIUnit/mL Blood 04/30/2024 10:3 1 AM DIRECTOR MOBILE 04/30/2024 2:03 PM DIRECTOR MOBILE Narrative [facility] ([place]) - 04/30/2024 3:12 PM DIRECTOR MOBILE Fasting Rand Chong MD LAB BLOOD ORDERABLES Final Result Performing Organization Address City/[facility] Co de Phone Number [facility] ([place]) 1 [facility] [place] [address] * (ABNORMAL) CBC with auto differential (04/30/2024 10:31 AM DIRECTOR MOBILE) [facility] WBC 6.1 3.8 - 9.9 K/cumm Hgb 9.5(L) 13.0 - 17.5 g/dL [facility] ([place]) Hct 30.8(L) 38.9 - 50.3 % [facility] ([place]) Plt 283 150 - 400 K/cumm [facility] ([place]) MPV 10.5 9.1 - 12.3 fL [facility] ([place]) RBC 2.87(L) 4.30 - 5.80 M/cumm [facility] ([place]) MCV 107.3(H) 81.3 - 96.4 fL [facility] ([place]) MCH 33.1 27.1 - 33.3 pg [facility] ([place]) MCHC 30.8(L) 32.3 - 35.7 g/dL [facility] ([place]) RDW CV 16.1(H) 11.1 - 14.9 % [facility] ([place]) RDW SD 64.2(H) 35.7 - 48.1 fL [facility] ([place]) NRBC abs 0.00 0.00 - 0.01 K/cumm [facility] ([place]) Blood 04/30/2024 10:3 1 AM DIRECTOR MOBILE 04/30/2024 2:03 PM DIRECTOR MOBILE Narrative [facility] ([place]) - 04/30/2024 2:11 PM DIRECTOR MOBILE Fasting Rand Chong MD LAB BLOOD ORDERABLES Final Result Performing Organization Address City/[facility] Co de Phone Number [facility] ([place]) [address] [facility] [place] [address] * Hemoglobin A1c (04/30/2024 10:31 AM DIRECTOR MOBILE) Hgb A1C <4.2 4.0 - 5.6 % Estimated Average Glucose 74 mg/dL [facility] ([place]) Comment: The ADA recommends reporting an estimated Average Glucose (eAG) with all Hemoglobin A1c results using the equation derived from a study of 507 normal and diabetic adults. Minority populations were underrepresented and children were not included. (Diabetes Care 31:1246-0621, 2008). The eAG is not equivalent to a fasting glucose. Blood 04/30/2024 10:3 1 AM DIRECTOR MOBILE 04/30/2024 2:03 PM DIRECTOR MOBILE Narrative [facility] ([place]) - 04/30/2024 3:50 PM DIRECTOR MOBILE Fasting Rand Chong MD LAB BLOOD ORDERABLES Final Result Performing Organization Address City/[facility] Co de Phone Number [facility] ([place]) [address] [facility] [place] [address] * Lipid panel (04/30/2024 10:31 AM DIRECTOR MOBILE) Cholesterol 178 30 - 199 mg/dL Comment: Interpretive Data Ages < or = 19 years Acceptable: <170 mg/dL Borderline high: 170-199 mg/dL High: >or= 200 mg/dL Ages > or = 20 years Desirable: <200 mg/dL Borderline high: 200-239 mg/dL High: >or= 240 mg/dL Literature References: 1. Expert Panel on Integrated Guidelines for Cardiovascular Health and Risk Reduction in Children and Adolescents. Pediatrics 2011;128:S213 2. NCEP Expert Panel. Circulation 2004;110:227 Current Interpretive Data was last revised on 2017. Triglycerides 80 <=149 mg/dL [facility] ([place]) Comment: Interpretive Data Ages < or = 9 years Acceptable: <75 mg/dL Borderline high: 75-99 mg/dL High: >or= 100 mg/dL Ages 10 to 20 years Acceptable: <90 mg/dL Borderline high: 90-129 mg/dL High: >or= 130 mg/dL Ages > or = 20 years Desirable: <150 mg/dL Borderline high: 150-199 mg/dL High: 200-499 mg/dL Very high: >or= 499 mg/dL Literature References: 1. Expert Panel on Integrated Guidelines for Cardiovascular Health and Risk Reduction in Children and Adolescents. Pediatrics 2011;128:S213 2. NCEP Expert Panel. Circulation 2004;110:227 Current Interpretive Data was last revised on 2017. HDL 45 >=40 mg/dL [facility] ([place]) Comment: Interpretive Data Ages < or = 19 years Acceptable: >45 mg/dL Borderline low: 40-45 mg/dL Low: <40 mg/dL Ages > or = 20 years Desirable: >or= 60 mg/dL Low: <40 mg/dL Literature References: 1. Expert Panel on Integrated Guidelines for Cardiovascular Health and Risk Reduction in Children and Adolescents. Pediatrics 2011;128:S213 2. NCEP Expert Panel. Circulation 2004;110:227 Current Interpretive Data was last revised on 2017. LDL, calculated 118 <=129 mg/dL [facility] ([place]) Comment: Interpretive Data Ages < or = 19 years Acceptable: <110 mg/dL Borderline high: 110-129 mg/dL High: >or= 130 mg/dL Ages > or = 20 years Optimal: <100 mg/dL Near optimal: 100-129 mg/dL Borderline high: 130-159 mg/dL High: >160 mg/dL Calculated using the [place] LDL-C estimating equation. This equation was implemented on 2023. Prior to this date LDL-C was estimated using the Friedewald equation. Literature References: 1. Expert Panel on Integrated Guidelines for Cardiovascular Health and Risk Reduction in Children and Adolescents. Pediatrics 2011;128:S213 2. NCEP Expert Panel. Circulation 2004;110:227 3. Basilio Chairez et al. SHELBY Cardiol. 2019August 20;5(5):540-548. doi: 10.1001/[email or web address].2020.0013 Current Interpretive Data was last revised on 2023. Non-HDL Cholesterol 133 mg/dL [facility] ([place]) Comment: Interpretive Data Ages < or = 19 years Acceptable: <120 mg/dL Borderline high: 120-144 mg/dL High: >145 mg/dL Ages > or = 20 years When triglycerides are >200 mg/dL, Non-HDL cholesterol is a secondary target of therapy with treatment goals that are 30 mg/dL greater than the LDL cholesterol target. Literature References: 1. Expert Panel on Integrated Guidelines for Cardiovascular Health and Risk Reduction in Children and Adolescents. Pediatrics 2011;128:S213 2. NCEP Expert Panel. Circulation 2004;110:227 Current Interpretive Data was last revised on 2017. Chol/HDL ratio 4 [facility] ([place]) Blood 04/30/2024 10:3 1 AM DIRECTOR MOBILE 04/30/2024 2:03 PM DIRECTOR MOBILE Narrative [facility] ([place]) - 04/30/2024 2:40 PM DIRECTOR MOBILE Fasting us Rand Chong MD LAB BLOOD ORDERABLES Final Result [facility] ([place]) 1 [facility] [place] [address] * (ABNORMAL) Comprehensive metabolic panel (04/30/2024 10:31 AM DIRECTOR MOBILE) Sodium 136 135 - 145 mmol/L Potassium, pl 3.9 3.3 - 4.9 mmol/L [facility] ([place]) Chloride 100 97 - 110 mmol/L [facility] ([place]) CO2 21(L) 22 - 32 mmol/L [facility] ([place]) Anion gap 15 2 - 15 mmol/L [facility] ([place]) BUN 18 6 - 25 mg/dL [facility] ([place]) Creatinine 1.69(H) 0.80 - 1.30 mg/dL [facility] ([place]) Glucose 99 70 - 199 mg/dL [facility] ([place]) Comment: Interpretive Data Fasting glucose >/= 126 mg/dl is diagnostic for diabetes. Fasting is defined as no caloric intake for at least 8 hours. Fasting glucose between 100 mg/dl to 125 mg/dl is diagnostic of prediabetes. In a patient with classic symptoms of hyperglycemia or hyperglycemic crisis, a random glucose >/= 200 mg/dl is diagnostic for diabetes. In the absence of unequivocal hyperglycemia, results should be confirmed by repeat testing. The classification and Diagnosis of Diabetes Diabetes Care 202; 46: S19-S40. Current interpretive data was last revised 2022. Calcium 10.0 8.5 - 10.3 mg/dL [facility] ([place]) Bilirubin, total 0.2 0.1 - 1.2 mg/dL [facility] ([place]) Protein, pl 7.8 6.5 - 8.5 g/dL [facility] ([place]) Albumin 4.5 3.5 - 5.0 g/dL [facility] ([place]) Alk phos 129 40 - 130 Units/L [facility] ([place]) ALT 7 7 - 55 Units/L [facility] ([place]) AST 19 10 - 50 Units/L [facility] ([place]) Blood 04/30/2024 10:3 1 AM DIRECTOR MOBILE 04/30/2024 2:03 PM DIRECTOR MOBILE Narrative [facility] ([place]) - 04/30/2024 2:39 PM DIRECTOR MOBILE Fasting us Rand Chong MD LAB BLOOD ORDERABLES Final Result [facility] ([place]) 1 [facility] [place] [address] * (ABNORMAL) Differential, auto (04/30/2024 9:25 AM DIRECTOR MOBILE) Neutrophil abs 4.3 1.5 - 6.5 K/cumm Comment:Testing performed by : [facility], [facility], [place], [address] Imm gran abs 0.0 0.0 - 0.1 K/cumm [facility] ([place]) Comment:Testing performed by : [facility], [facility], [place], [address] Lymphocyte abs 0.5(L) 0.8 - 3.3 K/cumm [facility] ([place]) Comment:Testing performed by : [facility], [facility], [place], [address] Monocyte abs 0.5 0.2 - 0.8 K/cumm [facility] ([place]) Comment:Testing performed by : [facility], [facility], [place], [address] Eosinophil abs 0.1 0.0 - 0.5 K/cumm [facility] ([place]) Comment:Testing performed by : [facility], [facility], [place], [address] Basophil abs 0.0 0.0 - 0.1 K/cumm [facility] ([place]) Comment:Testing performed by : [facility], [facility], [place], [address] Neutrophil pct 79.5 % [facility] ([place]) Comment: Interpretive Data Percent cell count reference ranges are not reported, since discordance with absolute values may lead to misinterpretation of CBC data. Current Interpretive Data was last revised on 2017. Testing performed by: [facility], [place], [address] Imm gran pct 0.4 % [facility] ([place]) Comment: Interpretive Data Percent cell count reference ranges are not reported, since discordance with absolute values may lead to misinterpretation of CBC data. Current Interpretive Data was last revised on 2017. Testing performed by: [facility], [facility], [place], [address] Lymphocyte pct 9.0 % [facility] ([place]) Comment: Interpretive Data Percent cell count reference ranges are not reported, since discordance with absolute values may lead to misinterpretation of CBC data. Current Interpretive Data was last revised on 2017. Testing performed by: [place], [address] Monocyte pct 8.6 % [facility] ([place]) Comment: Interpretive Data Percent cell count reference ranges are not reported, since discordance with absolute values may lead to misinterpretation of CBC data. Current Interpretive Data was last revised on 2017. Testing performed by: [facility], [facility], [place], [address] Eosinophil pct 1.9 % [facility] ([place]) Comment: Interpretive Data Percent cell count reference ranges are not reported, since discordance with absolute values may lead to misinterpretation of CBC data. Current Interpretive Data was last revised on 2017. Testing performed by: [facility], [facility], [place], [address] Basophil pct 0.6 % [facility] ([place]) Comment: Interpretive Data Percent cell count reference ranges are not reported, since discordance with absolute values may lead to misinterpretation of CBC data. Current Interpretive Data was last revised on 2017. Testing performed by: [facility], [facility], [place], [address] Blood 04/30/2024 9:25 AM DIRECTOR MOBILE 04/30/2024 10:02 AM DIRECTOR MOBILE us Kareem Figueroa MD LAB BLOOD ORDERABLES Ivory lutz Result [facility] ([place]) 1 [facility] Department [place] [address] * (ABNORMAL) CBC with auto differential (04/30/2024 9:25 AM DIRECTOR MOBILE) WBC 5.0 3.8 - 9.9 K/cumm Comment:Testing performed by : [facility] [address], Medical Office [address], [place] [address] Hgb 9.2(L) 13.0 - 17.5 g/dL [facility] ([place]) Comment:Testing performed by : [facility] [address], Medical Office [address], [place] [address] Hct 29.8(L) 38.9 - 50.3 % [facility] ([place]) Comment:Testing performed by : [facility] [address], Medical Office [address], [place] [address] Plt 249 150 - 400 K/cumm [facility] ([place]) Comment:Testing performed by : [facility] [address], Medical Office [facility] [address], [place] [address] MPV 9.5 9.1 - 12.3 fL [facility] ([place]) Comment:Testing performed by : [facility] [address], Medical Office [facility] [address], [place] [address] RBC 2.85(L) 4.30 - 5.80 M/cumm [facility] ([place]) Comment:Testing performed by : [facility] [address], Medical Office [facility] [address], [place] [address] MCV 104.6(H) 81.3 - 96.4 fL [facility] ([place]) Comment:Testing performed by : [facility] [address], Medical Office [facility] [address], [place] [address] MCH 32.3 27.1 - 33.3 pg [facility] ([place]) Comment:Testing performed by : [facility] [address], Medical Office [facility] [address], [place] [address] MCHC 30.9(L) 32.3 - 35.7 g/dL [facility] ([place]) Comment:Testing performed by : [facility] [address], Medical Office [facility] [address], [place] [address] RDW CV 16.0(H) 11.1 - 14.9 % [facility] ([place]) Comment:Testing performed by : [facility] [address], Medical Office [facility] [address] [facility] [address], [place] [address] RDW SD 62.4(H) 35.7 - 48.1 fL [facility] ([place]) Comment:Testing performed by : [facility] [address], Medical Office [facility] [address] [facility] [address], [place] [address] NRBC abs Not Measured 0.00 - 0.01 K/cumm [facility] ([place]) Comment:Testing performed by : [facility] [address], Medical Office [facility] [address], [place] [address] Blood 04/30/2024 9:25 AM DIRECTOR MOBILE 04/30/2024 9:25 AM DIRECTOR MOBILE us Kareem Figueroa MD LAB BLOOD ORDERABLES Ivory l Result [facility] ([place]) [address] [place] [address] Department [place] [address] * (ABNORMAL) Iron profile w/ IBC (04/30/2024 9:15 AM DIRECTOR MOBILE) Iron 49(L) 50 - 150 mcg/dL Comment:Testing performed by : [place], [address] TIBC 284 250 - 400 mcg/dL [facility] ([place]) Comment:Testing performed by : [place], [address] Transferrin saturation 17(L) 20 - 50 % [facility] ([place]) Comment:Testing performed by : [place], [address] Blood 04/30/2024 9:15 AM DIRECTOR MOBILE 04/30/2024 9:36 AM DIRECTOR MOBILE us Kareem Figueroa MD LAB BLOOD ORDERABLES Ivory l Result [facility] ([place]) [address] [place] [address] Department [place] [address] * Ferritin (04/30/2024 9:15 AM DIRECTOR MOBILE) Ferritin 100 30 - 400 ng/mL Comment:Testing performed by : [facility], [place], [address] Blood 04/30/2024 9:15 AM DIRECTOR MOBILE 04/30/2024 9:36 AM DIRECTOR MOBILE us Kareem Figueroa MD LAB BLOOD ORDERABLES Ivory l Result [facility] ([place]) 1 [facility] Department [place] [address] * Surgical pathology (04/28/2024 1:53 PM DIRECTOR MOBILE) Tissue (EG Junction, Biopsy) 04/28/2024 9:00 AM DIRECTOR MOBILE Tissue (Colon, Biopsy) 04/28/2024 9:00 AM DIRECTOR MOBILE Narrative PATHOLOGY [facility] ([place]) - 04/29/2024 2:18 PM DIRECTOR MOBILE EPIC results best viewed via link to PDF [facility] Department of Pathology [address] [place] [address] Note to Patients: This report may contain a detailed description of human tissue sent by a health care provider to the laboratory for pathologic evaluation. The content of this report is essential for diagnosis and may provide important critical findings. This information may be unfamiliar to patients to review without a medical professional present. It is advised that the patient review this report in the presence of a health care provider who can answer questions and explain the details. Final Report Patient Name: TWYLA NOONAN Address: [address] [place] [address]- Gender: M : 1950 (Age: 73) Service: Gastro Location: [facility] Hospital #: [id number] Patient Type: [facility] Taken: 04/28/2024 Received: 04/28/2024 Accessioned: 04/28/2024 Reported: 04/29/2024 Physician(s):Dr. Rudy Mccarthy M.D. Diagnosis: A. Gastroesophageal junction, biopsy: - Squamocolumnar epithelium with mixed inflammation compatible with reflux related changes. - Negative for intestinal metaplasia and dysplasia. B. Sigmoid colon, biopsy: - Ischemic colitis. Marvin Shirley M.D. Report Electronically Reviewed and Signed Out By Marvin Shirley M.D. 04/29/2024 14:18:13 Specimen(s) Received: A: GE Junction Biopsy B: Sigmoid colon biopsy Microscopic Description: A. Sections show fragments of benign squamocolumnar epithelium with mixed inflammation compatible with reflux related changes. Additionally, a small panel of immunohistochemical and special stains was performed with adequate controls. A pancytokeratin AE1/AE3 shows no evidence of an infiltrating carcinoma. An Alcian blue/PAS shows no evidence of intestinal metaplasia. B. Sections show fragments of colonic mucosa which show overlying ulceration. The underlying crypts show superficial withering with a background hyalinized stroma and some scattered fibrin thrombi seen. The findings are compatible with an ischemic colitis. There is no evidence of malignancy. Clinical History: Family history of colon cancer in mother. Personal history of colonic polyps. Iron deficiency anemia. EGD. Gross Description: The specimen is submitted in two formalin containers labeled TWYLA NOONAN . A. The first container is labeled GE junction . It is 4 fragments of olsen tissue measuring 1 mm. All in A. B. The second container is labeled sigmoid . It is 2 fragments of olsen tissue measuring 1 mm. All in B. T.A. Lucas Wong., Abbey/Kely Barone M.D. REPORT IMAGES AND SCANNED DOCUMENTS, IF INCLUDED, ONLY VIEWABLE IN PDF VERSION OF REPORT The performance characteristics of some immunohistochemical stains, fluorescence in-situ hybridization tests and immunophenotyping by flow cytometry cited in this report (if any) were determined by the Surgical Pathology Department at [facility] as part of an ongoing senior quality engineer program and in compliance with federally mandated regulations drawn from the Clinical Laboratory Improvement Act of 1988 (CLIA '88). Some of these tests rely on the use of analyte specific reagents and are subject to specific labeling requirements by the US Food and Drug Administration. Such diagnostic tests may only be performed in a facility that is certified by the Department of Health and Human Services as a high complexity laboratory under CLIA '88. The FDA has determined that such clearance or approval is not necessary. This test is used for clinical purposes. It should not be regarded as investigational or for research. Nevertheless, federal rules concerning the medical use of analyte specific reagents require that the following disclaimer be attached to the report: This test was developed and its performance characteristics determined by the Surgical Pathology Department [facility]. It has not been cleared or approved by the U. S. Food and Drug Administration. Note for decalcified specimens: This assay has not been validated on decalcified tissues. Results should be interpreted with caution given the possibility of false negativity on decalcified specimens us Rudy Mccarthy MD LAB PATHOLOGY ORDERABLES F inal Result PATHOLOGY [facility] ([place]) 1 [place] [address] * Colonoscopy (04/28/2024 7:12 AM DIRECTOR MOBILE) Anatomical Region Laterality Modality Other Narrative Procedure Note Rudy Mccarthy MD - 04/28/2024 7:12 AM CST [facility] Patient Name: Twyla Noonan Procedure Date: 04/28/2024 7:12 AM Date of : 1950 Admit Type: Outpatient Age: 73 Gender: Male Attending MD: Rudy Mccarthy M.D. Room: [facility] ENDOSCOPY ROOM 1 Note Status: Finalized Patient Profile: This is a 73 year old male. His mother had colon cancer. Noted the complaints of chronic iron-deficiency anemia. 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 Procedure: Colonoscopy Indications: Screening in patient at increased risk: Familyhistory of 1st-degree relative with colorectal cancer, Last colonoscopy: 2019 Referring MD: Rand Chong M.D. Providers: Rudy Mccarthy M.D. Impression: - Preparation of the colon was inadequate. - Two non-bleeding colonic angiodysplastic lesions. Treated with argon plasma coagulation (APC). - Scattered moderate inflammation was found in the sigmoid colon suggestive of ischemic colitis.Biopsied. - Diverticulosis in the sigmoid colon. - Internal hemorrhoids. Recommendation: - Await pathology results. - Repeat colonoscopy in 6 months for surveillancewith 2 days colon preparation. Medicines: Monitored Anesthesia Care Complications: No immediate complications. Estimated Blood Loss: Estimated blood loss: none. Procedure: Pre-Anesthesia Assessment: - Prior to the procedure, a History and Physicalwas performed, and patient medications and allergieswere reviewed. The patient's tolerance of previous anesthesia was also reviewed. The risks andbenefits of the procedure and the sedation options and risks were discussed with the patient. All questions were answered, and informed consent was obtained. Prior Anticoagulants: The patient has taken noanticoagulant or antiplatelet agents. ASA Grade Assessment: Per anesthesia note and evaluation. After reviewing the risks and benefits, the patient was deemed in satisfactory condition to undergo the procedure. The benefits, risks and alternatives of theprocedure and sedation were discussed and informed consentwas obtained. All questions were answered. Please referto the signed informed consent document in the medical record. The scope was passed under direct vision.The Pediatric Colonoscope PCF-H190L [id number] was introduced through the anus and advanced to the the cecum, identified by appendiceal orifice andileocecal valve. The bowel preparation used was Miralax and bisacodyl tablets via extended prep with split dose instruction. The patient tolerated the procedurewell. The quality of the bowel preparation wasinadequate. Bowel prep was administered using a split dose. Findings: The perianal and digital rectal examinations were normal. The cecum appeared normal. Two medium-sized angiodysplastic lesions without bleeding were foundin the ascending colon. Coagulation for hemostasis using argon plasma at 0.9 liters/minute and 30 hernandez was successful. Scattered moderate inflammation characterized by congestion (edema), erosions, erythema and granularity was found in the sigmoid colon. Appearance is suggestive of ischemic colitis Biopsies were taken witha cold forceps for histology. Scattered small-mouthed diverticula were found in the sigmoidcolon. Internal hemorrhoids were found during retroflexion. The hemorrhoids were small. Electronically signed by Rudy Mccarthy M.D. Rudy Mccarthy M.D. 04/28/2024 9:11:30 AM Number of Addenda: 0 Note Initiated On: 04/28/2024 7:12 AM Procedure Code(s): --- Professional --- 49151, 59, Colonoscopy, flexible; with control of bleeding, anymethod 85006, Colonoscopy, flexible; with biopsy, single or multiple Diagnosis Code(s): --- Professional --- Z80.0, Family history of malignant neoplasm of digestive organs K64.8, Other hemorrhoids K55.20, Angiodysplasia of colon without hemorrhage K55.9, Vascular disorder of intestine, unspecified K57.30, Diverticulosis of large intestine without perforation orabscess without bleeding CPT copyright 2020 [employer]. All rights reserved. The codes documented in this report are preliminary and upon early childhood teacher assistant reviewmay be revised to meet current compliance requirements. Recognized by the [employer] for promoting quality in endoscopy Rudy Mccarthy MD ENDOSCOPY PROCEDURES Final Result * EGD (04/28/2024 7:12 AM DIRECTOR MOBILE) Anatomical Region Laterality Modality Other Narrative Procedure Note Rudy Mccarthy MD - 04/28/2024 7:12 AM CST [facility] Patient Name: Twyla Noonan Procedure Date: 04/28/2024 7:12 AM Date of : 1950 Admit Type: Outpatient Age: 73 Gender: Male Attending MD: Rudy Mccarthy M.D. Room: [facility] ENDOSCOPY ROOM 1 Note Status: Finalized Patient Profile: This is a 73 year old male. Patient with thechronic iron-deficiency anemia. He has crest syndrome. Heis on aspirin daily. Procedure: Upper GI endoscopy Indications: Iron deficiency anemia secondary to chronic bloodloss Referring MD: Rand Chong M.D. Providers: Rudy Mccarthy M.D. Impression: - Seven angiodysplastic lesions in the duodenumwith a stigmata of high-risk of bleeding. Treated withargon plasma coagulation (APC). - A single bleeding angiodysplastic lesion in the stomach. Treated with argon plasma coagulation(APC). - Reflux esophagitis. Biopsied. Recommendation: - Await pathology results. - Use Protonix (pantoprazole) 40 mg PO daily for 6 months. - Repeat upper endoscopy in 1 year. - Iron-deficiency anemia is likely secondary to multiple arteriovenous malformations lesions within the digestive system Medicines: Monitored Anesthesia Care Complications: No immediate complications. Estimated Blood Loss: Estimated blood loss: none. Procedure: Pre-Anesthesia Assessment: - Prior to the procedure, a History and Physicalwas performed, and patient medications and allergieswere reviewed. The patient's tolerance of previous anesthesia was also reviewed. The risks andbenefits of the procedure and the sedation options and risks were discussed with the patient. All questions were answered, and informed consent was obtained. Prior Anticoagulants: The patient has taken noanticoagulant or antiplatelet agents. ASA Grade Assessment: Per anesthesia note and evaluation. After reviewing the risks and benefits, the patient was deemed in satisfactory condition to undergo the procedure. The benefits, risks, and alternatives to theprocedure and sedation were discussed and informed consentwas obtained. The scope was passed under direct vision. The Endoscope GIF-H190 [id number] was introduced through the mouth, and advanced to the second partof duodenum. The upper GI endoscopy was accomplished without difficulty. The patient tolerated the procedure well. Findings: Seven 3 to 5 mm angiodysplastic lesions with stigmata of recentbleeding were found in the second portion of the duodenum. Coagulation for hemostasis using argon plasma at 0.9 liters/minute and 30 hernandez was successful. The gastric antrum was normal. Retroflexion stomach in the gastric fundus and cardia were unremarkable per A single 4 mm angiodysplastic lesion with active persistent minor bleeding was found in the gastric body. Coagulation for hemostasisusing argon plasma at 0.8 liters/minute and 30 hernandez was successful. The Z-line was irregular and was found 41 cm from the incisors.Biopsies were taken with a cold forceps for histology. Electronically signed by Rudy Mccarthy M.D. Rudy Mccarthy M.D. 04/28/2024 9:06:22 AM Number of Addenda: 0 Note Initiated On: 04/28/2024 7:12 AM Procedure Code(s): --- Professional --- 32254, 59, Esophagogastroduodenoscopy, flexible, transoral; withcontrol of bleeding, any method 70791, Esophagogastroduodenoscopy, flexible, transoral; with biopsy, single or multiple Diagnosis Code(s): --- Professional --- K31.811, Angiodysplasia of stomach and duodenum with bleeding K22.89, Other specified disease of esophagus D50.0, Iron deficiency anemia secondary to blood loss (chronic) CPT copyright 2020 [employer]. All rights reserved. The codes documented in this report are preliminary and upon early childhood teacher assistant reviewmay be revised to meet current compliance requirements. Recognized by the [employer] for promoting quality in endoscopy Rudy Mccarthy MD ENDOSCOPY PROCEDURES Final Result * (ABNORMAL) Differential, auto (04/02/2024 9:00 AM DIRECTOR MOBILE) Neutrophil abs 3.9 1.5 - 6.5 K/cumm Comment:Testing performed by : [facility] [address], Medical Office [facility] [address], [place] [address] Imm gran abs 0.0 0.0 - 0.1 K/cumm [facility] ([place]) Comment:Testing performed by : [facility] [address], Medical Office [facility] [address], [place] [address] Lymphocyte abs 0.4(L) 0.8 - 3.3 K/cumm [facility] ([place]) Comment:Testing performed by : [facility] [address], Medical Office [facility] [address], [place] [address] Monocyte abs 0.5 0.2 - 0.8 K/cumm [facility] ([place]) Comment:Testing performed by : [facility] [address], Medical Office [facility] [address], [place] [address] Eosinophil abs 0.2 0.0 - 0.5 K/cumm [facility] ([place]) Comment:Testing performed by : [facility] [address], Medical Office [facility] [address], [place] [address] Basophil abs 0.0 0.0 - 0.1 K/cumm [facility] ([place]) Comment:Testing performed by : [facility] [address], Medical Office [facility] [address], [place] [address] Neutrophil pct 77.8 % [facility] ([place]) Comment: Consistent with previous result Interpretive Data Percent cell count reference ranges are not reported, since discordance with absolute values may lead to misinterpretation of CBC data. Current Interpretive Data was last revised on 2022. Testing performed by: [facility] [address], Medical Office [facility] [address], [place] [address] Imm gran pct 0.2 % [facility] ([place]) Comment: Interpretive Data Percent cell count reference ranges are not reported, since discordance with absolute values may lead to misinterpretation of CBC data. Current Interpretive Data was last revised on 2022. Testing performed by: [facility] [address], Medical Office [facility] [address], [place] [address] Lymphocyte pct 8.5 % [facility] ([place]) Comment: Interpretive Data Percent cell count reference ranges are not reported, since discordance with absolute values may lead to misinterpretation of CBC data. Current Interpretive Data was last revised on 2022. Testing performed by: [facility] [address], Medical Office [facility] [address], [place] [address] Monocyte pct 9.5 % [facility] ([place]) Comment: Interpretive Data Percent cell count reference ranges are not reported, since discordance with absolute values may lead to misinterpretation of CBC data. Current Interpretive Data was last revised on 2022. Testing performed by: [facility] [address], Medical Office [facility] [address], [place] [address] Eosinophil pct 3.6 % [facility] ([place]) Comment: Interpretive Data Percent cell count reference ranges are not reported, since discordance with absolute values may lead to misinterpretation of CBC data. Current Interpretive Data was last revised on 2022. Testing performed by: [facility] [address], Medical Office [facility] B [facility] [address], [place] [address] Basophil pct 0.4 % [facility] ([place]) Comment: Interpretive Data Percent cell count reference ranges are not reported, since discordance with absolute values may lead to misinterpretation of CBC data. Current Interpretive Data was last revised on 2022. Testing performed by: [facility] [address], Medical Office [facility] [address], [place] [address] Blood 04/02/2024 9:00 AM DIRECTOR MOBILE 04/02/2024 9:05 AM DIRECTOR MOBILE us Kareem Figueroa MD LAB BLOOD ORDERABLES Ivory lutz Result [facility] MURTA[facility] ([place]) 1 [facility] [place] [address] * Iron profile w/ IBC (04/02/2024 9:00 AM DIRECTOR MOBILE) Pathologist [facility] Iron 133 50 - 150 mcg/dL Comment:Testing performed by : [facility], [facility], [place], [address] TIBC 355 250 - 400 mcg/dL [facility] ([place]) Comment:Testing performed by : [facility], [facility], [place], [address] Transferrin saturation 37 20 - 50 % [facility] ([place]) Comment:Testing performed by : [facility], [facility], [place], [address] Blood 04/02/2024 9:00 AM DIRECTOR MOBILE 04/02/2024 9:14 AM DIRECTOR MOBILE us Kareem Figueroa MD LAB BLOOD ORDERABLES Ivory lutz Result [facility] ([place]) 1 [facility] Department [place] [address] * (ABNORMAL) CBC with auto differential (04/02/2024 9:00 AM DIRECTOR MOBILE) [facility] WBC 5.1 3.8 - 9.9 K/cumm Comment:Testing performed by : [facility] [address], Medical Office [address], [place] [address] Hgb 7.3(L) 13.0 - 17.5 g/dL [facility] ([place]) Comment:Testing performed by : [facility] [address], Medical Office [address], [place] [address] Hct 25.2(L) 38.9 - 50.3 % [facility] ([place]) Comment:Testing performed by : [facility] [address], Medical Office Bld[address], [place] [address] Plt 238 150 - 400 K/cumm [facility] ([place]) Comment:Testing performed by : [facility] [address], Medical Office [address]ld[address], [place] [address] MPV 9.3 9.1 - 12.3 fL [facility] ([place]) Comment:Testing performed by : [facility] [address], Medical Office [address], [place] [address] RBC 2.34(L) 4.30 - 5.80 M/cumm [facility] ([place]) Comment:Testing performed by : [facility] [address], Medical Office [facility] [address], [place] [address] MCV 107.7(H) 81.3 - 96.4 fL [facility] ([place]) Comment:Testing performed by : [facility] [address], Medical Office [facility] [address], [place] [address] MCH 31.2 27.1 - 33.3 pg [facility] ([place]) Comment:Testing performed by : [facility] [address], Medical Office [facility] [address], [place] [address] MCHC 29.0(L) 32.3 - 35.7 g/dL [facility] ([place]) Comment:Testing performed by : [facility] [address], Medical Office [facility] [address], [place] [address] RDW CV 17.5(H) 11.1 - 14.9 % [facility] ([place]) Comment:Testing performed by : [facility] [address], Medical Office [facility] [address], [place] [address] RDW SD 69.4(H) 35.7 - 48.1 fL [facility] ([place]) Comment:Testing performed by : [facility] [address], Medical Office [facility] [address], [place] [address] NRBC abs Not Measured 0.00 - 0.01 K/cumm [facility] ([place]) Comment:Testing performed by : [facility] [address], Medical Office [facility] B [facility] [address], [place] [address] Blood 04/02/2024 9:00 AM DIRECTOR MOBILE 04/02/2024 9:05 AM DIRECTOR MOBILE us Kareem Figueroa MD LAB BLOOD ORDERABLES Ivory lutz Result [facility] ([place]) 1 [facility] Department [place] [address] * Folate (04/02/2024 9:00 AM DIRECTOR MOBILE) [facility] Folic acid >20.0 >=5.0 ng/mL Comment: Slightly Hemolyzed Specimen. Results may be affected. Testing performed by: [place], [address] Blood 04/02/2024 9:00 AM DIRECTOR MOBILE 04/02/2024 9:14 AM DIRECTOR MOBILE Kareem Figueroa MD LAB BLOOD ORDERABLES Ivory l Result Performing Organization Address City/[facility]/ZIP Co de Phone Number DIMITRI[facility] HAUSER ([place]) [address] [place] [address] [place] [address] * (ABNORMAL) Ferritin (04/02/2024 9:00 AM DIRECTOR MOBILE) [facility] Ferritin 24(L) 30 - 400 ng/mL Comment:Testing performed by : [facility], [place], [address] Blood 04/02/2024 9:00 AM DIRECTOR MOBILE 04/02/2024 9:14 AM DIRECTOR MOBILE Kareem Figueroa MD LAB BLOOD ORDERABLES Ivory l Result Performing Organization Address [facility] de Phone Number D[facility]USER ([place]) [address] [place] [address] [place] [address] * PSA screen (05/20/2023 10:28 AM DIRECTOR MOBILE) [facility] PSA-Total 0.28 <=6.20 ng/mL [facility] ([place]) Comment: Interpretive Data AGE SEX REFERENCE INTERVAL 0 minutes-150 years Female None 0 minutes-49 years Male None 50-59 years Male 0-3.90 60-69 years Male 0-5.40 70-79 years Male 0-6.20 80-150 years Male 0-6.20 The Tyshawn PSA Total assay procedure was used. Results from different manufacturers or methods may not be comparable. Serial testing should be performed using the same method. Current interpretive data last revised 21. Blood 05/20/2023 10:2 8 AM DIRECTOR MOBILE 05/20/2023 1:25 PM DIRECTOR MOBILE Narrative [facility] ([place]) - 05/20/2023 2:17 PM DIRECTOR MOBILE fasting Rand Chong MD LAB BLOOD ORDERABLES Final Result [facility]USER ([place]) 1 [facility] [place] [address] * Hepatitis panel, acute (10/12/2022 2:45 PM CDT) Hep A IgM Nonreactive Nonreactive [facility] ([place]) Comment: Interpretive Data: If Hep A IgM Ab is reported as Equivocal, a new sample should be drawn in two weeks for testing. Current interpretive data was last revised on 19. Testing performed by: [facility], [address] [place] [address]., [id number] Hep B core IgM Nonreactive Nonreactive Rebecca HAUSER ([place]) Comment: Interpretive Data If HepB Core IgM Ab is reported as Equivocal, a new sample should be drawn in two weeks for testing. Current interpretive data was last revised on 19. Testing performed by: [facility], [address] [place] [address]., [id number] Hep C Ab Nonreactive Nonreactive [facility]USER ([place]) Comment: Interpretive Data Nonreactive: Antibodies to HCV not detected. Does NOT exclude the possibility of recent exposure to HCV. Equivocal: Equivocal for HCV antibodies. Supplemental molecular testing will be automatically performed to determine infection status in accordance with current CDC screening recommendations. Reactive: Positive for HCV antibodies. This may represent current or past HCV infection. Supplemental molecular testing will be automatically performed to determine current infection status in accordance with current CDC screening recommendations. Interpretive data was last revised on 2019. Testing performed by: [facility], [address] [place] [address]., [id number] HepBsAg Nonreactive Nonreactive [facility] ([place]) Comment:Testing performed by : [facility], [address] [place] [address]., [id number] Blood 10/12/2022 2:45 PM CDT 10/12/2022 11:11 PM CDT us Radha LEACH LAB MICROBIOLOGY - GENER AL ORDERABLES Final Result [facility] [place]) 1 [facility] [place] [address] from Last 3 Months or Most Recently Relevant to Health Maintenance Insurance [employer] MEDICARE MEDICARE [employer] MEDICARE [employer] Advance Directives For more information, please contact: [phone] * Full Code (Latest Code Status on File) Date Activated Date Inactivated Comments 04/28/2024 7:09 AM 04/28/2024 1:44 PM * Full Code Date Activated Date Inactivated Comments 04/28/2024 7:09 AM 04/28/2024 7:09 AM * Full Code Date Activated Date Inactivated Comments 02/02/2022 9:41 AM 02/02/2022 4:40 PM * Full Code Date Activated Date Inactivated Comments 02/02/2022 9:41 AM 02/02/2022 9:41 AM * Full Code Date Activated Date Inactivated Comments 09/08/2021 2:19 AM 09/12/2021 8:31 PM Care Teams Repair Supervisor Relationship Specialty Start Date End Date Rand Chong MD [address] [facility] [address] [place] [address] PCP - General Family Medicine 01/24/22 Jose Brunson MD [address] [place] [address] Consulting Physician Pulmonary Disease 05/02/22 Lauren Dia MD [address] [place] [address] Consulting Physician Cardiology 05/02/22 Ranjit Sandoval PA [address] [place], [place] [id number] Physician Planning Feeder Physician Planning Feeder 07/05/23 aKreem Figueroa MD [address] [facility] [address] [facility] [place] [address] Consulting Physician Medical Oncology 05/07/24 Radha Toure PA [address] [place] [address] Gastroenterology 05/07/24 Natalya Peñaloza MD [address] [place] [address] Consulting Physician Internal Medicine 05/07/24
--- OUTSIDE RECORDS SUMMARY | 2024-06-24 12:50 | XMS_ITS | Encounter Summary ---
Author Organization [facility] Address [address] [place] [address] Phone Care Team Providers Care Program Project Analyst Name Role Phone Declan Mora MD Primary Care Provider [phone] Amy Echeverria RN Unavailable [phone] Amy Echeverria RN Unavailable [phone] Declan Mora MD Primary Care Provider [phone] Wally Shell MD Primary Care Provider Rand Chong MD Primary Care Provide r Jose Brunson MD Unavailable Lauren Dia MD Unavailable [phone] Ranjit Sandoval Unavailable [phone] Kareem Figueroa MD Unavailable [phone] Radha Toure Unavailable [phone] Natalya Peñaloza MD Unavailable Encounter Details Date Type Department Care Team (Late st Contact Info) Description 06/18/2017 Orders Only [facility] ProviderWilliam MD [address] [place] [address] Social History Tobacco Use Types Packs/Day Years Used Date Smoking Tobacco: Former Smokeless Tobacco: Never Alcohol Use Standard Drinks/Week Comments No 0 (1 standard drink = 0.6 oz pur e alcohol) Sex and Gender Information Value Date Recorded Sex Assigned at Not on file Legal Sex Male 11:53 PM FOUNDER Gender Identity Male 09/12/2023 11:52 AM CDT Sexual Orientation Straight 09/12/2023 11 :52 AM CDT documented as of this encounter Plan of Treatment Upcoming Encounters Date Type Department Care Team (Late st Contact Info) Description 11/03/2024 12:00 PM CDT Hospital Encounter [address] [address] Rudy Mccarthy MD [address] [facility] [address] [place] [address] 11/03/2024 12:00 PM CDT - 11/03/2024 12:30 PM CDT Surgery [address] [address] Rudy Mccarthy MD [address] [facility] [address] [place] [id number] COLONOSCOPY Scheduled Procedures Name Priority Associated Diagnoses Date/Ti me COLONOSCOPY Colitis AVM (arteriovenous malformation) Family history of colon cancer 11/03/2024 12:00 PM CDT documented as of this encounter Procedures Procedure Name Priority Date/Time Associated Diagnosis Comments DISCHARGE LABORATORY CUMULATIVE REPORT 06/18/2017 12:00 AM FOUNDER documented in this encounter Results * DISCHARGE LABORATORY CUMULATIVE REPORT (06/18/2017 12:00 AM FOUNDER) Narrative 06/18/2017 12:00 AM FOUNDER Ordered by an unspecified provider. us Historical Provider LAB BLOOD ORDERABLES Ivory l Result documented in this encounter Visit Diagnoses Not on filedocumented in this encounter Additional Health Concerns Infection Onset Date Last Indicated Resolved Time COVID: Suspected 09/07/2021 09/07/2021 09/08/2021 12:01 AM CDT COVID: Suspected 03/24/2022 03/24/2022 03/24/2022 9:48 AM FOUNDER COVID: Suspected 10/08/2023 10/08/2023 10/08/2023 10:56 AM CDT documented as of this encounter Care Teams Program Project Analyst Relationship Specialty Start Date End Date Declan Mora MD PCP - General 07/20/16 10/01/21 Declan Mora MD [address] [facility] [place] [address] PCP - General 10/03/21 01/22/22 Wally Shell MD [address] [facility] [address] PCP - General Family Medicine 01/23/22 01/23/22 Rand Chong MD [address] [facility] [place] [address] PCP - General Family Medicine 01/24/22 Amy Echeverria RN [address] [place], [place] [id number] Rustic Terrazzo Setter 06/21/17 07/21/17 Amy Echeverria RN [address] [place] [address] [address] [place] [address] Rustic Terrazzo Setter 09/13/21 10/08/21 Jose Brunson MD [address] [facility] [place] [address] Consulting Physician Pulmonary Disease 05/02/22 Lauren Dia MD [address] [facility] [address] Consulting Physician Cardiology 05/02/22 Ranjit Sandoval PA [address] [place] [address] Physician Power Generation Plant Operator Physician Power Generation Plant Operator 07/05/23 Kareem Figueroa MD [address] [facility] [address] [facility] [address] Consulting Physician Medical Oncology 05/07/24 Radha Toure PA [address] [facility] [address] [place] [address] Gastroenterology 05/07/24 Natalya Peñaloza MD [address] [place] [address] Consulting Physician Internal Medicine 05/07/24 documented as of this encounter
--- OUTSIDE RECORDS SUMMARY | 2024-06-24 12:50 | XMS_ITS | Referral Summary ---
Author Organization [facility] Address [address] [place] [address] Care Team Providers Care Telegraph Dispatcher Name Role Phone Rand Chong MD Primary Care Provide r Jose Brunson MD Unavailable Lauren Dia MD Unavailable [phone] Ranjit Sandoval Unavailable + [phone] Kareem Figueroa MD Unavailable [phone] Radha Toure Unavailable [phone] Natalya Peñaloza MD Unavailable Encounters Date Type Department Care Team Description 06/22/2024 11:30 AM EARLY CHILDHOOD TEACHER ASSISTANT Lab [address] Arrived 06/22/2024 11:15 AM EARLY CHILDHOOD TEACHER ASSISTANT Lab [address] CREST (calcinosis, Raynaud's phenomenon, esophageal dysfunction, sclerodactyly, telangiectasia) (HCC) 06/22/2024 10:30 AM EARLY CHILDHOOD TEACHER ASSISTANT Office Visit [facility] Pulmonary at [address] [place] [address] Jose Brunson MD Multiple pulmonary nodules (Primary Dx); CREST (calcinosis, Raynaud's phenomenon, esophageal dysfunction, sclerodactyly, telangiectasia) (HCC); Pulmonary hypertension (HCC); Acute non-recurrent maxillary sinusitis 06/17/2024 10:34 AM EARLY CHILDHOOD TEACHER ASSISTANT - 06/17/2024 11:59 PM EARLY CHILDHOOD TEACHER ASSISTANT Hospital Encounter [facility] [address] [place] [address] Chronic liver disease Discharge Disposition: Discharge to home or self care 06/17/2024 10:42 AM EARLY CHILDHOOD TEACHER ASSISTANT - 06/17/2024 11:59 PM EARLY CHILDHOOD TEACHER ASSISTANT Hospital Encounter [facility] [address] [place] [address] Multiple pulmonary nodules Discharge Disposition: Discharge to home or self care 06/16/2024 Telephone [facility] [address] [place] [address] Luther Prince 06/12/2024 Results Follow-Up [facility] Gastroenterology at [address] [place] [address] Radha Toure PA Elevated alkaline phosphatase level (Primary Dx) 06/12/2024 11:00 AM EARLY CHILDHOOD TEACHER ASSISTANT Office Visit [facility] [address] [place] [address] 5th [place] [address] [place] [address] CREST (calcinosis, Raynaud's phenomenon, esophageal dysfunction, sclerodactyly, telangiectasia) (HCC) (Primary Dx) 06/11/2024 9:45 AM EARLY CHILDHOOD TEACHER ASSISTANT Office Visit [facility] Oncology [address] [place] [address] [address] [place] [address] Kasie Mari, YARN WRAPPER Iron deficiency anemia due to chronic blood loss (Primary Dx); Folic acid deficiency 06/10/2024 Telephone [facility] [address] [place] [address] [address] [place] [address] Kiara Bethea, DIONISIO 06/10/2024 10:20 AM EARLY CHILDHOOD TEACHER ASSISTANT - 06/10/2024 11:59 PM EARLY CHILDHOOD TEACHER ASSISTANT Hospital Encounter [address] Chronic liver disease; Abnormal findings on diagnostic imaging of liver and biliary tract Discharge Disposition: Discharge to home or self care 06/10/2024 10:45 AM EARLY CHILDHOOD TEACHER ASSISTANT Lab [facility] [address] [place] [address] Iron deficiency anemia due to chronic blood loss; Chronic liver disease; Abnormal findings on diagnostic imaging of liver and biliary tract; CREST (calcinosis, Raynaud's phenomenon, esophageal dysfunction, sclerodactyly, telangiectasia) (HCC) 05/28/2024 2:30 PM EARLY CHILDHOOD TEACHER ASSISTANT Office Visit [facility] Gastroenterology at [address] [place] [address] Radha Toure PA Chronic liver disease (Primary Dx); Abnormal findings on diagnostic imaging of liver and biliary tract; Constipation, unspecified constipation type; Gastroesophageal reflux disease, unspecified whether esophagitis present; CREST syndrome (HCC); Family history of colon cancer in mother; History of colonic polyps; Gallbladder polyp; Iron deficiency anemia due to chronic blood loss 05/11/2024 Telephone [facility] Gastroenterology at [address] [place] [address] Geneva Nina Schedule Colonoscopy 05/07/2024 Orders Only [facility] Primary Care at [address] [place] [address] Rand Rockwell MD Stage 3b chronic kidney disease (HCC); Encounter for abdominal aortic aneurysm (AAA) screening 05/07/2024 10:30 AM EARLY CHILDHOOD TEACHER ASSISTANT Office Visit [facility] Primary Care at [address] [place] [address] Rand Rockwell MD Medicare annual wellness visit, subsequent (Primary Dx); Chronic atrial fibrillation (HCC); Coronary artery disease involving red devil coronary artery of red devil heart without angina pectoris; Essential hypertension; Mixed hyperlipidemia; Hypogonadism in male; Other cirrhosis of liver (HCC); CREST syndrome (HCC); Class 2 severe obesity due to excess calories with serious comorbidity and body mass index (BMI) of 36.0 to 36.9 in adult (HCC); Stage 3b chronic kidney disease (HCC) 05/01/2024 Telephone [facility] Primary Care at [address] [place] [address] Karma Kapadia MA 04/30/2024 Telephone [facility] [address] [facility] [address] [place] [address] Kareem Figueroa MD 04/30/2024 12:30 PM EARLY CHILDHOOD TEACHER ASSISTANT Lab [address] Routine health maintenance 04/30/2024 10:30 AM EARLY CHILDHOOD TEACHER ASSISTANT Infusion [address] [address] Iron deficiency anemia due to chronic blood loss 04/30/2024 9:30 AM EARLY CHILDHOOD TEACHER ASSISTANT Lab [address] [place] [address] Iron deficiency anemia due to chronic blood loss 04/30/2024 10:00 AM EARLY CHILDHOOD TEACHER ASSISTANT Office Visit [facility]cology [address] [place] [address] Medical [address] [place] [address] Kareem Figueroa MD Iron deficiency anemia due to chronic blood loss; CREST (calcinosis, Raynaud's phenomenon, esophageal dysfunction, sclerodactyly, telangiectasia) (HCC); 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 (HCC) 04/28/2024 8:16 AM EARLY CHILDHOOD TEACHER ASSISTANT Anesthesia Event [address] [address] Aly Deluca MD Zirkelbach, Cecilia A., CRNA 04/28/2024 8:00 AM EARLY CHILDHOOD TEACHER ASSISTANT - 04/28/2024 8:30 AM EARLY CHILDHOOD TEACHER ASSISTANT Surgery [address] [address] Rudy Mccarthy MD COLON CONTROL BLEEDING 04/28/2024 6:55 AM EARLY CHILDHOOD TEACHER ASSISTANT - 04/28/2024 9:44 AM EARLY CHILDHOOD TEACHER ASSISTANT Hospital Encounter [address] [address] Rudy Mccarthy MD Family history of colon cancer in mother; Personal history of colonic polyps; Iron deficiency anemia, unspecified iron deficiency anemia type; History of colonic polyps Discharge Disposition: Discharge to home or self care 04/02/2024 10:30 AM EARLY CHILDHOOD TEACHER ASSISTANT Infusion [address] [address] Iron deficiency anemia due to chronic blood loss (Primary Dx) 04/02/2024 9:00 AM EARLY CHILDHOOD TEACHER ASSISTANT Lab [address] [place] [address] 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 (HCC); Iron deficiency anemia due to chronic blood loss; Folic acid deficiency 04/02/2024 9:30 AM EARLY CHILDHOOD TEACHER ASSISTANT Office Visit [facility] [address] [facility] Medical Office [address] [place] [address] Kareem Figueroa MD Iron deficiency anemia due to chronic blood loss (Primary Dx); 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 (HCC) from Last 3 Months Allergies No known active allergies Medications aspirin 81 mg enteric coated tablet Take 1 tablet (81 mg total) by mouth daily Active ferrous sulfate ER (SLOW IRON) 140 mg (45 mg of elemental iron) tabletIndication s:Iron Deficiency Anemia 1 tablet (140 mg total) Active multivitamin-min erals-lutein tablet Take by mouth Active vitamins A,C,B-ekxg-vslzj r (OCUVITE) 2,148 mcg-113 mg-45 mg-17.4mg tablet [...] (HCC) - he currently follows with a radio reporter - he takes sildenafil for Raynaud's - [...] CT of the chest on 07/25/2022 at [facility] which reveals: FINDINGS: The sensitivity for detection [...] CT of the chest on 02/07/2023 at [facility] which reveals: FINDINGS: The sensitivity for detection [...] underwent a PET scan on 02/21/2023 at [facility] which reveals: FINDINGS:Focal uptake at the right [...] a CT-guided lung biopsy on 03/08/2023 at [facility] which was unsuccessful. He underwent another CT chest at [facility] on 04/04/2023 which reveals: FINDINGS: Unchanged mild [...] He underwent a bronch with EBUS at [facility] on 04/05/2023 which reveals: Findings: 1. [...] 05/07/2024 Assessment & Plan (05/07/2024 10:40 AM EARLY CHILDHOOD TEACHER ASSISTANT): Chronic Slight decline Possibly autoimmune related Recommend [...] 05/02/2023 Assessment & Plan (05/06/2024 12:45 PM EARLY CHILDHOOD TEACHER ASSISTANT): Stable Continue following with gi for management Assessment & Plan (05/02/2023 7:02 AM EARLY CHILDHOOD TEACHER ASSISTANT): Stable Continue following with gi for management Medicare annual wellness visit, subsequent 05/01 Assessment & Plan (05/07/2024 12:54 PM EARLY CHILDHOOD TEACHER ASSISTANT): Labs reviewed and discussed Colonoscopy due 2025 US AAA screening ordered F/u in 1 year for annual Assessment & Plan (05/02/2023 10:45 AM EARLY CHILDHOOD TEACHER ASSISTANT): Ordered lipid, hgb a1c, PSA Colonoscopy he will discuss with his GI provider Zoster-encouraged to go to local pharmacy F/u in 1 year for annual Assessment & Plan (05/02/2022 2:33 PM EARLY CHILDHOOD TEACHER ASSISTANT): Ordered CBC, cmp, lipid, hgb a1c, PSA Colonoscopy will be due in 2023 F/u in 1 year for annual Arteriovenous malformation (AVM) 02/28/2022 Gastrointestinal hemorrhage associated with angiodysplasia of stomach and duodenum 02/28/2022 Assessment & Plan (05/02/2023 6:55 AM EARLY CHILDHOOD TEACHER ASSISTANT): Stable / clinically quiescent. Will continue to monitor. Continue pepcid 20mg daily Dysphagia 01/30/2022 Overview (01/30/2022): Added automatically from request for surgery [id number] Statin intolerance 05/30/2020 Iron deficiency anemia hailey hensley to inadequate dietary iron intake 06/02/2019 Assessment & Plan (05/02/2023 6:56 AM EARLY CHILDHOOD TEACHER ASSISTANT): Lab Results Component Value Date HGB 11.4 (L) 04/12/2023 stable Cbc every 6 months Continue iron tablets Assessment & Plan (05/02/2022 2:22 PM EARLY CHILDHOOD TEACHER ASSISTANT): Cbc every 6 months Continue iron tablets Old CT (myocardial infarction) 03/11/2019 Assessment & Plan (05/02/2022 2:19 PM EARLY CHILDHOOD TEACHER ASSISTANT): S/p 2 stents Continue following with cardiology Hypogonadism in male 11/12/2017 Assessment & Plan (05/06/2024 12:40 PM EARLY CHILDHOOD TEACHER ASSISTANT): Continue revatio 20mg 3x/day This is for the pulmonary htn, raynauds, and hypogonadism Assessment & Plan (05/02/2023 6:54 AM EARLY CHILDHOOD TEACHER ASSISTANT): Continue revatio 20mg 3x/day This is for the pulmonary htn, raynauds, and hypogonadism Assessment & Plan (05/02/2022 2:20 PM EARLY CHILDHOOD TEACHER ASSISTANT): Continue revatio 20mg 3x/day This is for the pulmonary htn, raynauds, and hypogonadism Essential hypertension 06/27/2017 Assessment & Plan (05/07/2024 10:35 AM EARLY CHILDHOOD TEACHER ASSISTANT): Bp in the office today BP Readings [...] months Assessment & Plan (05/02/2023 10:30 AM EARLY CHILDHOOD TEACHER ASSISTANT): Bp in the office today BP Readings [...] months Assessment & Plan (05/02/2022 2:18 PM EARLY CHILDHOOD TEACHER ASSISTANT): Bp in the office today BP Readings from Last 1 Encounters: 05/02/22 140/70 Continue current regimen of losartan-hctz 100-25mg daily Recommend DASH diet, heart-healthy lifestyle, exercise. Discussed the risks of hypertension. F/u in 6 months CREST syndrome 06/19/2017 Assessment & Plan (05/06/2024 12:45 PM EARLY CHILDHOOD TEACHER ASSISTANT): Stable / clinically quiescent. Will continue to monitor. Assessment & Plan (05/02/2023 6:56 AM EARLY CHILDHOOD TEACHER ASSISTANT): Stable / clinically quiescent. Will continue to monitor. Assessment & Plan (05/02/2022 2:22 PM EARLY CHILDHOOD TEACHER ASSISTANT): Continue sildenafil Acute blood loss anemia 06/19/2017 Assessment & Plan (06/19/2017 4:04 PM EARLY CHILDHOOD TEACHER ASSISTANT): Status post 4 U of packed RBCs. Monitor H&H. Hold anticoagulation. Assessment & Plan (06/19/2017 1:11 PM EARLY CHILDHOOD TEACHER ASSISTANT): Initial hemoglobin less than 6, patient received 2 U of packed red blood cells, keep hb above 7 Raynaud's disease with gangrene ([facility]/HCC) 2016 Chronic atrial fibrillation 11/20/2016 Assessment & Plan (05/06/2024 12:39 PM EARLY CHILDHOOD TEACHER ASSISTANT): Not on AC due to hx of bleeding on xarelto Continue asa Continue following with cardiology Assessment & Plan (05/02/2023 6:52 AM EARLY CHILDHOOD TEACHER ASSISTANT): Was on xarelto and almost bled to so cannot do xarelto Continue asa Continue following with cardiology Assessment & Plan (05/02/2022 2:14 PM EARLY CHILDHOOD TEACHER ASSISTANT): Was on xarelto and almost bled to so cannot do xarelto Continue asa Continue following with cardiology Assessment & Plan (06/19/2017 4:09 PM EARLY CHILDHOOD TEACHER ASSISTANT): Patient is on chronic anticoagulation with Xarelto, coagulation study showed mild elevation of INR 1.31. Recommending to discontinue Xarelto for now and follow up with a tertiary center for further cauterization of possible small-bowel telangiectasias. Risks and benefits were discussed with the patient about discontinuation of anticoagulation. Patient verbalized understanding. Assessment & Plan (06/19/2017 1:11 PM EARLY CHILDHOOD TEACHER ASSISTANT): Will hold any anticoagulation at this point due to active bleeding Telemetry monitoring Mixed hyperlipidemia 11/20/2016 Assessment & Plan (05/06/2024 12:40 PM EARLY CHILDHOOD TEACHER ASSISTANT): Lab Results Component Value Date LDLCALC 118 04/30/2024 Stable Continue atorvastatin 20mg daily Assessment & Plan (05/02/2023 6:53 AM EARLY CHILDHOOD TEACHER ASSISTANT): Stable Continue statin medication Assessment & Plan (05/01/2022 9:15 PM EARLY CHILDHOOD TEACHER ASSISTANT): Stable Continue statin medication Coronary artery disease invo lving red devil heart without angina pectoris 11/20/2016 Assessment & Plan (05/06/2024 12:39 PM EARLY CHILDHOOD TEACHER ASSISTANT): S/p 2 stent Cont asa and statin Continue following with cardiology Assessment & Plan (05/02/2023 6:53 AM EARLY CHILDHOOD TEACHER ASSISTANT): S/p 2 stent Continue following with cardiology Assessment & Plan (05/02/2022 2:15 PM EARLY CHILDHOOD TEACHER ASSISTANT): S/p 2 stent Continue following with cardiology Assessment & Plan (06/19/2017 1:11 PM EARLY CHILDHOOD TEACHER ASSISTANT): Stable No antiplatelets at this point - patient with active GI bleed Chronic coronary artery disease 07/05/2014 Overview (07/28/2016): CAD - Coronary artery disease Systemic sclerosis ([facility]/HCC) 09/05/2013 Overview (07/26/2016): SYSTEMIC SCLEROSIS Class 2 severe obesity due t o excess calories with serious comorbidity and body mass index (BMI) of 36.0 to 36.9 in adult 09/05/2013 Overview (07/28/2016): OBESITY NOS Assessment & Plan (05/02/2023 10:59 AM EARLY CHILDHOOD TEACHER ASSISTANT): He was counseled on the importance of [...] Hematology for iron transfusion Recommend seeing his seed cone picker first. If no answers there, will recommend he follow with his clothing man Pneumonia 09/08/2021 05/06/2024 Assessment & Plan (01/24/2022 3:15 PM CDT): Complete antibiotics Ct reviewed Keep appointment with pulmonary F/u at annual Sepsis 09/08/2021 05/06/2024 Neck mass 11/10/2020 12/05/2020 Overview (11/10/2020): Added automatically from request for surgery [id number] Assessment & Plan (11/10/2020 2:24 PM CDT): [...] 11/20/201607/22 Assessment & Plan (06/19/2017 4:03 PM EARLY CHILDHOOD TEACHER ASSISTANT): Patient came severely anemic, tarry stools, received [...] successful. Assessment & Plan (06/19/2017 1:11 PM EARLY CHILDHOOD TEACHER ASSISTANT): Most likely from AVM's again related to known history of CREST and AVM's Keep npo, urgent EGD On ppi Holding blood thinner Multiple-type hyperlipidemia 09/05/2013 01/01/2017 Overview (07/26/2016): MIXED HYPERLIPIDEMIA Benign hypertension 09/05/2013 06/28/19 18 Overview (07/26/2016): BENIGN HYPERTENSION Assessment & Plan (06/19/2017 12:10 AM EARLY CHILDHOOD TEACHER ASSISTANT): Blood pressure is stable. Will resume cardiac pertinent home medications with holding parameters to hold the medications if systolic blood pressure less than 110 Disorder of lipid metabolism 09/05/2013 11/20/2016 Overview (07/28/2016): LIPOID METABOL DIS NOS CHIARA (acute kidney injury) Immunizations Immunization Administration Dates Next Due Influenza, [...] 06/10/2015 Pneumococcal Polysaccharide PPV23 06/15/2016 Tdap 01/05/2009 Social History Tobacco Use Types Packs/Day Years [...] week 10/09/2021 How often do you attend [facility] or protestant services? More than 4 times per year 10/09/2021 Do you belong to any clubs o r organizations such as advent groups, unions, fraternal or athletic groups, or [...] place to sleep or slept in a prison (including now)? No 10/09/2021 Personal Safety Answer Date Recorded Have you ever been in or are you currently in a harmful physical or emotional relationship or is someone making you feel afraid or unsafe? Denies 04/28/2024 Sex and Gender Information Value Date Recorded Sex Assigned at Not on file Legal Sex Male 11:53 PM EARLY CHILDHOOD TEACHER ASSISTANT Gender Identity Male 09/12/2023 11:52 AM CDT Sexual Orientation Straight 09/12/2023 11 :52 AM CDT Last Filed Vital Signs Vital Sign Reading Time Taken Comments Blood Pressure 144/70 06/22/2024 10:29 AM EARLY CHILDHOOD TEACHER ASSISTANT Pulse 54 06/22/2024 10:29 AM EARLY CHILDHOOD TEACHER ASSISTANT Temperature 36.9 C (98.5 F) 06/22/2024 10:29 AM EARLY CHILDHOOD TEACHER ASSISTANT Respiratory Rate 18 06/11/2024 9:41 AM EARLY CHILDHOOD TEACHER ASSISTANT Oxygen Saturation 94% 06/22/2024 10: 29 AM EARLY CHILDHOOD TEACHER ASSISTANT Inhaled Oxygen Concentration - - Weight 108.1 kg (238 lb 4.8 oz) 025 10:29 AM EARLY CHILDHOOD TEACHER ASSISTANT Height 177.8 cm (5' 10 ) 06/22/2024 10: 29 AM EARLY CHILDHOOD TEACHER ASSISTANT Body Mass Index 34.19 06/22/2024 10:29 AM EARLY CHILDHOOD TEACHER ASSISTANT Plan of Treatment Upcoming Encounters Date Type Department Care Team (Late st Contact Info) Description 11/03/2024 12:00 PM CDT Hospital Encounter [facility] [address] [place] [address] Rudy Mccarthy MD [address] [place] [address] 11/03/2024 12:00 PM CDT - 11/03/2024 12:30 PM CDT Surgery [address] [address] Rudy Mccarthy MD [address] [place] [address] COLONOSCOPY Scheduled Procedures Name Priority Associated Diagnoses Date/Ti me COLONOSCOPY Colitis AVM (arteriovenous malformation) Family history of colon cancer 11/03/2024 12:00 PM CDT Procedures Procedure Name Priority Date/Time Associated Diagnosis Comments BLOOD MISC TO [place] Routine 06/22/2024 11:17 AM EARLY CHILDHOOD TEACHER ASSISTANT URIC ACID Routine 06/22/2024 11:17 AM EARLY CHILDHOOD TEACHER ASSISTANT CREST (calcinosis, Raynaud's phenomenon, esophageal dysfunction, sclerodactyly, telangiectasia) (HCC) PROTEIN / CREATININE RATIO, URINE, RANDOM Routine 06/22/2024 11:17 AM EARLY CHILDHOOD TEACHER ASSISTANT CREST (calcinosis, Raynaud's phenomenon, esophageal dysfunction, sclerodactyly, telangiectasia) (HCC) URINALYSIS AND REFLEX TO MICROSCOPIC AND CULTURE Routine 06/22/2024 11:17 AM EARLY CHILDHOOD TEACHER ASSISTANT CREST (calcinosis, Raynaud's phenomenon, esophageal dysfunction, sclerodactyly, telangiectasia) (HCC) CT ABDOMEN PELVIS WO CONTRAST Schedule Routine, Read Routine (OP Routine) 06/17/2024 10:53 AM EARLY CHILDHOOD TEACHER ASSISTANT Chronic liver disease CT CHEST WO CONTRAST Schedule Routine, Read Routine (OP Routine) 06/17/2024 10:53 AM EARLY CHILDHOOD TEACHER ASSISTANT Multiple pulmonary nodules EGFR Routine 06/10/2024 10:20 AM EARLY CHILDHOOD TEACHER ASSISTANT Chronic liver disease DIFFERENTIAL AUTO Routine 06/10/2024 10:20 AM EARLY CHILDHOOD TEACHER ASSISTANT Chronic liver disease FIBRINOGEN Routine 06/10/2024 10:20 AM EARLY CHILDHOOD TEACHER ASSISTANT Chronic liver disease [id number], TUMOR MARKER Routine 06/10/2024 10:20 AM EARLY CHILDHOOD TEACHER ASSISTANT Chronic liver disease Abnormal findings on diagnostic imaging of liver and biliary tract PROTIME-INR Routine 06/10/2024 10:20 AM EARLY CHILDHOOD TEACHER ASSISTANT Chronic liver disease COMPREHENSIVE METABOLIC PANEL Routine 10:20 AM EARLY CHILDHOOD TEACHER ASSISTANT Chronic liver disease CBC WITH AUTO DIFFERENTIAL Routine 06/10 10:20 AM EARLY CHILDHOOD TEACHER ASSISTANT Chronic liver disease DIFFERENTIAL AUTO Routine 06/10/2024 10:20 AM EARLY CHILDHOOD TEACHER ASSISTANT Iron deficiency anemia due to chronic blood loss CBC WITH AUTO DIFFERENTIAL Routine 06/10 10:20 AM EARLY CHILDHOOD TEACHER ASSISTANT Iron deficiency anemia due to chronic blood loss FERRITIN Routine 06/10/2024 10:20 AM EARLY CHILDHOOD TEACHER ASSISTANT Iron deficiency anemia due to chronic blood loss IRON PROFILE W/ IBC Routine 06/10/2024 10:20 AM EARLY CHILDHOOD TEACHER ASSISTANT Iron deficiency anemia due to chronic blood loss EGFR Routine 04/30/2024 10:31 AM EARLY CHILDHOOD TEACHER ASSISTANT Routine health maintenance DIFFERENTIAL AUTO Routine 04/30/2024 10:31 AM EARLY CHILDHOOD TEACHER ASSISTANT Routine health maintenance HEMOGLOBIN A1C Routine 04/30/2024 10:31 AM EARLY CHILDHOOD TEACHER ASSISTANT Routine health maintenance THYROID FUNCTION CASCADE Routine 025 10:31 AM EARLY CHILDHOOD TEACHER ASSISTANT Routine health maintenance LIPID PANEL Routine 04/30/2024 10:31 AM EARLY CHILDHOOD TEACHER ASSISTANT Routine health maintenance COMPREHENSIVE METABOLIC PANEL Routine 10:31 AM EARLY CHILDHOOD TEACHER ASSISTANT Routine health maintenance CBC WITH AUTO DIFFERENTIAL Routine 04/30 10:31 AM EARLY CHILDHOOD TEACHER ASSISTANT Routine health maintenance DIFFERENTIAL AUTO Routine 04/30/2024 9:25 AM EARLY CHILDHOOD TEACHER ASSISTANT CBC WITH AUTO DIFFERENTIAL Routine 04/30 9:25 AM EARLY CHILDHOOD TEACHER ASSISTANT Iron deficiency anemia due to chronic blood loss IRON PROFILE W/ IBC Routine 04/30/2024 9:15 AM EARLY CHILDHOOD TEACHER ASSISTANT Iron deficiency anemia due to chronic blood loss FERRITIN Routine 04/30/2024 9:15 AM EARLY CHILDHOOD TEACHER ASSISTANT Iron deficiency anemia due to chronic blood loss SURGICAL PATHOLOGY STAT 04/28/2024 1:53 PM EARLY CHILDHOOD TEACHER ASSISTANT Family history of colon cancer in mother History of colonic polyps Iron deficiency anemia, unspecified iron deficiency anemia type ENDO ADD ON ESOPHAGOGASTRODUODENOSCOPY BIOPSY 04/28/2024 8:02 AM EARLY CHILDHOOD TEACHER ASSISTANT Family history of colon cancer in mother Personal history of colonic polyps Iron deficiency anemia, unspecified iron deficiency anemia type ENDO ADD ON COLON BIOPSY 025 8:02 AM EARLY CHILDHOOD TEACHER ASSISTANT Family history of colon cancer in mother Personal history of colonic polyps Iron deficiency anemia, unspecified iron deficiency anemia type ESOPHAGOGASTRODUODENOSCOPY CONTROL BLEED 04/28/2024 8:02 AM EARLY CHILDHOOD TEACHER ASSISTANT Family history of colon cancer in mother Personal history of colonic polyps Iron deficiency anemia, unspecified iron deficiency anemia type COLON CONTROL BLEEDING 8:02 AM EARLY CHILDHOOD TEACHER ASSISTANT Family history of colon cancer in mother Personal history of colonic polyps Iron deficiency anemia, unspecified iron deficiency anemia type COLONOSCOPY 04/28/2024 7:12 AM EARLY CHILDHOOD TEACHER ASSISTANT EGD 04/28/2024 7:12 AM EARLY CHILDHOOD TEACHER ASSISTANT DIFFERENTIAL AUTO Routine 04/02/2024 9:00 AM EARLY CHILDHOOD TEACHER ASSISTANT 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 (HCC) Iron deficiency anemia due to chronic blood loss CBC WITH AUTO DIFFERENTIAL Routine 04/02 9:00 AM EARLY CHILDHOOD TEACHER ASSISTANT 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 (HCC) Iron deficiency anemia due to chronic blood loss FERRITIN Routine 04/02/2024 9:00 AM EARLY CHILDHOOD TEACHER ASSISTANT 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 (HCC) Iron deficiency anemia due to chronic blood loss FOLATE Routine 04/02/2024 9:00 AM EARLY CHILDHOOD TEACHER ASSISTANT Folic acid deficiency IRON PROFILE W/ IBC Routine 04/02/2024 9:00 AM EARLY CHILDHOOD TEACHER ASSISTANT Iron deficiency anemia due to chronic blood loss PSA SCREEN Routine 05/20/2023 10:28 AM EARLY CHILDHOOD TEACHER ASSISTANT Mixed hyperlipidemia Essential hypertension IGT (impaired glucose tolerance) Screening PSA (prostate specific antigen) HEPATITIS PANEL, ACUTE Routine 3 2:45 PM CDT Cirrhosis of liver without ascites, unspecified hepatic cirrhosis type (HCC) from Last 3 Months or Most Recently Relevant to Health Maintenance Results * Urinalysis reflex to microscopic and culture Urine, clean voided (06/22/2024 11:17 AM EARLY CHILDHOOD TEACHER ASSISTANT) Color, ur Straw Yellow Clarity, ur Clear [...] tendency for uric acid stone formation. Source: Dom[facility]ng[facility] [employer] Current Interpretive Data was last revised on [...] for microscopic UA and culture not met. [facility] ([place]) Urine, clean voided 06/22/2024 11:17 AM EARLY CHILDHOOD TEACHER ASSISTANT 06/22/2024 1:07 PM EARLY CHILDHOOD TEACHER ASSISTANT Natalya Peñaloza MD LAB MICROBIOLOGY - GENERAL ORDER SYED Final Result Performing Organization Address [facility] Co de Phone Number [facility] ([place]) 1 [facility] [place] [employer] [place] [address] * Protein / creatinine ratio, urine, random (06/22/2024 11:17 AM EARLY CHILDHOOD TEACHER ASSISTANT) Protein, ur, quant 6.3 mg/dL Comment: Interpretive Data No reference range established. Current interpretive data was last revised 2018. Creatinine Ur 49.6 mg/dL [facility] ([place]) Comment: Interpretive Data No reference range established. Current interpretive data was last revised 2018. Protein/creatinin e ratio 127.0 0.0 - 180.0 mg/g CR [facility] ([place]) Urine 06/22/2024 11:1 7 AM EARLY CHILDHOOD TEACHER ASSISTANT 06/22/2024 1:07 PM EARLY CHILDHOOD TEACHER ASSISTANT Natalya Peñaloza MD LAB URINE ORDERABLES Final Resul t Performing Organization Address City/[facility]/ZIP Co de Phone Number [facility] ([place]) 1 [facility] [place] [address] * (ABNORMAL) Uric acid (06/22/2024 11:17 AM EARLY CHILDHOOD TEACHER ASSISTANT) Uric acid 9.2(H) 3.0 - 8.0 mg/dL Blood 06/22/2024 11:1 7 AM EARLY CHILDHOOD TEACHER ASSISTANT 06/22/2024 1:07 PM EARLY CHILDHOOD TEACHER ASSISTANT us Natalya Peñaloza MD LAB BLOOD ORDERABLES Final Resul t [facility] ([place]) 1 [facility] [place] [address] * CT Abdomen Pelvis WO Contrast (06/17/2024 10:53 AM EARLY CHILDHOOD TEACHER ASSISTANT) Anatomical Region Laterality Modality Body N/A Computed Tomogra phy 06/21/2024 9:40 AM EARLY CHILDHOOD TEACHER ASSISTANT Narrative 06/21/2024 10:05 AM EARLY CHILDHOOD TEACHER ASSISTANT EXAM DESCRIPTION: CT chest and ABDOMEN PELVIS [...] Kareem Osman M.D. RB: JEFF[place] Report ID: [id number] Reading Location: [id number] Procedure Note Kareem Osman MD - 06/21/2024 [...] Kareem Osman M.D. RB: JE[place] Report ID: [id number] Reading Location: [id number] Radha LEACH IMG CT PROCEDURES Final Result * CT chest without contrast (06/17/2024 10:53 AM EARLY CHILDHOOD TEACHER ASSISTANT) Anatomical Region Laterality Modality Body N/A Computed Tomogra phy 06/21/2024 10:0 5 AM EARLY CHILDHOOD TEACHER ASSISTANT Narrative 06/21/2024 10:06 AM EARLY CHILDHOOD TEACHER ASSISTANT EXAM DESCRIPTION: CT chest and ABDOMEN PELVIS [...] Kareem Osman M.D. RB: JEFFERSON Report ID: [id number] Reading Location: [place] [address] Procedure Note Kareem Osman MD - 06/21/2024 [...] Kareem Osman M.D. RB: [place] Report ID: [id number] Reading Location: [place] [address] Jose Brunson MD IMG CT PROCEDURES Final Result * (ABNORMAL) eGFR (06/10/2024 10:20 AM EARLY CHILDHOOD TEACHER ASSISTANT) eGFR 54(L) >=60 mL/min/1. 73 m2 Comment: [...] reviewed 2021. Blood 06/10/2024 10:2 0 AM EARLY CHILDHOOD TEACHER ASSISTANT 06/10/2024 1:51 PM EARLY CHILDHOOD TEACHER ASSISTANT us Radha LEACH LAB BLOOD ORDERABLES Fin al Result [facility] ([place]) 1 [facility] [place] [address] * (ABNORMAL) Differential, auto (06/10/2024 10:20 AM EARLY CHILDHOOD TEACHER ASSISTANT) Neutrophil abs 5.3 1.5 - 6.5 K/cumm Imm gran abs 0.0 0.0 - 0.1 K/cumm [facility] ([place]) Lymphocyte abs 0.6(L) 0.8 - 3.3 K/cumm [...] Eosinophil pct 4.1 % [facility] ([place]) Comment: Interpretive Data Percent cell count reference ranges are not reported, since discordance with absolute values may lead to misinterpretation of CBC data. Current Interpretive Data was last revised on 2017. Basophil pct 1.0 % [facility] ([place]) Comment: Interpretive Data Percent cell count reference ranges are not reported, since discordance with absolute values may lead to misinterpretation of CBC data. Current Interpretive Data was last revised on 2017. Blood 06/10/2024 10:2 0 AM EARLY CHILDHOOD TEACHER ASSISTANT 06/10/2024 1:58 PM EARLY CHILDHOOD TEACHER ASSISTANT us Radha LEACH LAB BLOOD ORDERABLES Fin al Result [facility] ([place]) 1 [facility] [place] [address] * (ABNORMAL) Differential, auto (06/10/2024 10:20 AM EARLY CHILDHOOD TEACHER ASSISTANT) Neutrophil abs 5.3 1.5 - 6.5 K/cumm Comment:Testing performed by : [place], [address] Imm gran abs 0.0 0.0 - 0.1 K/cumm [facility] ([place]) Comment:Testing performed by : [place], [address] Lymphocyte abs 0.6(L) 0.8 - 3.3 K/cumm [facility] ([place]) Comment:Testing performed by : [place], [address] Monocyte abs 0.4 0.2 - 0.8 K/cumm [facility] ([place]) Comment:Testing performed by : [place], [address] Eosinophil abs 0.3 0.0 - 0.5 K/cumm [facility] ([place]) Comment:Testing performed by : [place], [address] Basophil abs 0.1 0.0 - 0.1 K/cumm [facility] ([place]) Comment:Testing performed by : [place], [address] Neutrophil pct 79.7 % [facility] ([place]) Comment: Interpretive Data Percent cell count reference ranges are not reported, since discordance with absolute values may lead to misinterpretation of CBC data. Current Interpretive Data was last revised on 2017. Testing performed by: [facility], [place], [address] Imm gran pct 0.4 % [facility] ([place]) Comment: Interpretive Data Percent cell count reference ranges are not reported, since discordance with absolute values may lead to misinterpretation of CBC data. Current Interpretive Data was last revised on 2017. Testing performed by: [facility], [place], [address] Lymphocyte pct 8.7 % [facility] ([place]) Comment: Interpretive Data Percent cell count reference ranges are not reported, since discordance with absolute values may lead to misinterpretation of CBC data. Current Interpretive Data was last revised on 2017. Testing performed by: [facility], [place], [address] Monocyte pct 6.3 % [facility] ([place]) Comment: Interpretive Data Percent cell count reference ranges are not reported, since discordance with absolute values may lead to misinterpretation of CBC data. Current Interpretive Data was last revised on 2017. Testing performed by: [facility], [place], [address] Eosinophil pct 4.0 % [facility] ([place]) Comment: Interpretive Data Percent cell count reference ranges are not reported, since discordance with absolute values may lead to misinterpretation of CBC data. Current Interpretive Data was last revised on 2017. Testing performed by: [facility], [place], [address] Basophil pct 0.9 % [facility] ([place]) Comment: Interpretive Data Percent cell count reference ranges are not reported, since discordance with absolute values may lead to misinterpretation of CBC data. Current Interpretive Data was last revised on 2017. Testing performed by: [facility], [place], [address] Blood 06/10/2024 10:2 0 AM EARLY CHILDHOOD TEACHER ASSISTANT 06/10/2024 10:24 AM EARLY CHILDHOOD TEACHER ASSISTANT us Kareem Figueroa MD LAB BLOOD ORDERABLES Ivory l Result [facility] ([place]) 1 [facility] Department [place] [address] * Iron profile w/ IBC (06/10/2024 10:20 AM EARLY CHILDHOOD TEACHER ASSISTANT) Pathologist [facility] Iron 87 50 - 150 mcg/dL Comment:Testing performed by : [facility], [place], [address] TIBC 278 250 - 400 mcg/dL [facility] ([place]) Comment:Testing performed by : [place], [address] Transferrin saturation 31 20 - 50 % [facility] ([place]) Comment:Testing performed by : [place], [address] Blood 06/10/2024 10:2 0 AM EARLY CHILDHOOD TEACHER ASSISTANT 06/10/2024 10:47 AM EARLY CHILDHOOD TEACHER ASSISTANT us Kareem Figueroa MD LAB BLOOD ORDERABLES Ivory l Result Performing Organization Address City/[facility]/ZIP Co de Phone Number [facility] ([place]) 1 [facility] [place] [address] * (ABNORMAL) CBC with auto differential (06/10/2024 10:20 AM EARLY CHILDHOOD TEACHER ASSISTANT) WBC 6.8 3.8 - 9.9 K/cumm Hgb [...] [facility] ([place]) Blood 06/10/2024 10:2 0 AM EARLY CHILDHOOD TEACHER ASSISTANT 06/10/2024 1:58 PM EARLY CHILDHOOD TEACHER ASSISTANT us Radha LEACH LAB BLOOD ORDERABLES Fin al Result [facility] ([place]) 1 [facility] Department [place] [address] * (ABNORMAL) CBC with auto differential (06/10/2024 10:20 AM EARLY CHILDHOOD TEACHER ASSISTANT) WBC 6.7 3.8 - 9.9 K/cumm Comment:Testing performed by : [place], [address] Hgb 10.3(L) 13.0 - 17.5 g/dL [facility] ([place]) Comment:Testing performed by : [place], [address] Hct 33.0(L) 38.9 - 50.3 % [facility] ([place]) Comment:Testing performed by : [place], [address] Plt 262 150 - 400 K/cumm [facility] ([place]) Comment:Testing performed by : [place], [address] MPV 9.8 9.1 - 12.3 fL [facility] ([place]) Comment:Testing performed by : [place], [address] RBC 3.25(L) 4.30 - 5.80 M/cumm [facility] ([place]) Comment:Testing performed by : [place], [address] MCV 101.5(H) 81.3 - 96.4 fL [facility] ([place]) Comment:Testing performed by : [facility], [place], [address] MCH 31.7 27.1 - 33.3 pg [facility] ([place]) Comment:Testing performed by : [facility], [place], [address] MCHC 31.2(L) 32.3 - 35.7 g/dL [facility] ([place]) Comment:Testing performed by : [facility], [place], [address] RDW CV 15.2(H) 11.1 - 14.9 % [facility] ([place]) Comment:Testing performed by : [facility], [place], [address] RDW SD 56.8(H) 35.7 - 48.1 fL [facility] ([place]) Comment:Testing performed by : [facility], [place], [address] NRBC abs 0.00 0.00 - 0.01 K/cumm [facility] ([place]) Comment:Testing performed by : [facility], [facility], [place], [address] Blood 06/10/2024 10:2 0 AM EARLY CHILDHOOD TEACHER ASSISTANT 06/10/2024 10:24 AM EARLY CHILDHOOD TEACHER ASSISTANT us Kareem Figueroa MD LAB BLOOD ORDERABLES Ivory lutz Result [facility] ([place]) 1 [facility] [place] [address] * [id number], Tumor Marker (06/10/2024 10:20 AM EARLY CHILDHOOD TEACHER ASSISTANT) alpha Fetoprotein <2.0 <=8.3 ng/mL Comment: Interpretive [...] et al. J. Ped Surg 1978;13:155-156 Brent Gaines et al. Clin Chem Lab Med 2018;57:783-797 Abby Germain et al. Clin Chem 2014;8122-9011. Current interpretive data was last revised 2021. Testing performed by: [facility], [address] [place]., [address] Blood 06/10/2024 10:2 0 AM EARLY CHILDHOOD TEACHER ASSISTANT 06/10/2024 4:14 PM EARLY CHILDHOOD TEACHER ASSISTANT Radha LEAHC LAB BLOOD ORDERABLES Fin al Result Performing Organization Address [facility] de Phone Number [facility] ([place]) [address] [place] [address] [place] [address] * Protime-INR (06/10/2024 10:20 AM EARLY CHILDHOOD TEACHER ASSISTANT) PT 11.2 9.7 - 13.0 sec [facility] ([place]) INR 1.04 0.90 - 1.20 [facility] ([place]) Comment: Interpretive data Oral anticoagulant therapeutic ranges: Venous thromboembolism prophylaxis or treatment: 2.0-3.0 CARDIOLOGY Standard range: 2.0-3.0 High-intensity range: 2.5-3.5 Refer to indication-specific guidelines for appropriate target ranges for prosthetic heart valve replacement. Current interpretive data was last revised on 2019. Blood 06/10/2024 10:2 0 AM EARLY CHILDHOOD TEACHER ASSISTANT 06/10/2024 1:51 PM EARLY CHILDHOOD TEACHER ASSISTANT Radha LEACH LAB BLOOD ORDERABLES Fin al Result Performing Organization Address [facility] Co de Phone Number [facility] ([place]) 1 [facility] [place] [address] * (ABNORMAL) Fibrinogen (06/10/2024 10:20 AM EARLY CHILDHOOD TEACHER ASSISTANT) Fibrinogen 526(H) 170 - 400 mg/dL [facility] ([place]) Blood 06/10/2024 10:2 0 AM EARLY CHILDHOOD TEACHER ASSISTANT 06/10/2024 1:51 PM EARLY CHILDHOOD TEACHER ASSISTANT us Radha LEACH LAB BLOOD ORDERABLES Fin al Result [facility] ([place]) [address] [place] [address] [place] [address] * Ferritin (06/10/2024 10:20 AM EARLY CHILDHOOD TEACHER ASSISTANT) Pathologist [facility] Ferritin 53 30 - 400 ng/mL Comment:Testing performed by : [facility], [place], [address] Blood 06/10/2024 10:2 0 AM EARLY CHILDHOOD TEACHER ASSISTANT 06/10/2024 10:47 AM EARLY CHILDHOOD TEACHER ASSISTANT us Kareem Figueroa MD LAB BLOOD ORDERABLES Ivory l Result Performing Organization Address City/[facility]/ZIP Co de Phone Number [facility] ([place]) 1 [facility] [place] [address] * (ABNORMAL) Comprehensive metabolic panel (06/10/2024 10:20 AM EARLY CHILDHOOD TEACHER ASSISTANT) Pathologist [facility] Sodium 135 135 - 145 mmol/L Potassium, pl 4.1 3.3 - 4.9 mmol/L [facility] ([place] Chloride 101 97 - 110 mmol/L [facility] ([place]) CO2 24 22 - 32 mmol/L [facility] ([place]) Anion gap 10 2 - 15 mmol/L [facility] ([place]) BUN 22 6 - 25 mg/dL [facility] ([place]) Creatinine 1.38(H) 0.80 - 1.30 mg/dL [facility] ([place]) Glucose 96 70 - 199 mg/dL [facility] ([place]) Comment: Interpretive Data Fasting glucose [...] [facility] ([place]) Blood 06/10/2024 10:2 0 AM EARLY CHILDHOOD TEACHER ASSISTANT 06/10/2024 1:51 PM EARLY CHILDHOOD TEACHER ASSISTANT us Radha LEACH LAB BLOOD ORDERABLES Fin al Result [facility] ([place]) 1 [facility] [place] [address] * (ABNORMAL) eGFR (04/30/2024 10:31 AM EARLY CHILDHOOD TEACHER ASSISTANT) eGFR 42(L) >=60 mL/min/1. 73 m2 Comment: [...] Inclusion of Race in Diagnosing Kidney Disease, VAHID 2020). The CKD-EPI equation should not be used for patients with unstable renal function and has not been validated in children and those over 70. Current interpretive data was last reviewed 2021. Blood 04/30/2024 10:3 1 AM EARLY CHILDHOOD TEACHER ASSISTANT 04/30/2024 2:03 PM EARLY CHILDHOOD TEACHER ASSISTANT Rand Chong MD LAB BLOOD ORDERABLES Final Result [facility] ([place]) 1 [facility] [place] [address] * (ABNORMAL) Differential, auto (04/30/2024 10:31 AM EARLY CHILDHOOD TEACHER ASSISTANT) Neutrophil abs 5.0 1.5 - 6.5 K/cumm [...] on 2017. Blood 04/30/2024 10:3 1 AM EARLY CHILDHOOD TEACHER ASSISTANT 04/30/2024 2:03 PM EARLY CHILDHOOD TEACHER ASSISTANT Rand Chong MD LAB BLOOD ORDERABLES Final Result [facility] ([place]) 1 [facility] [place] [place] [address] * Thyroid Function [place] (04/30/2024 10:31 AM EARLY CHILDHOOD TEACHER ASSISTANT) [facility] TSH 3.24 0.30 - 4.20 mcIUnit/mL Blood 04/30/2024 10:3 1 AM EARLY CHILDHOOD TEACHER ASSISTANT 04/30/2024 2:03 PM EARLY CHILDHOOD TEACHER ASSISTANT Narrative [facility] ([place]) - 04/30/2024 3:12 PM EARLY CHILDHOOD TEACHER ASSISTANT Fasting Rand Chong MD LAB BLOOD ORDERABLES Final Result [facility] ([place]) 1 [facility] [place] [address] * (ABNORMAL) CBC with auto differential (04/30/2024 10:31 AM EARLY CHILDHOOD TEACHER ASSISTANT) WBC 6.1 3.8 - 9.9 K/cumm Hgb 9.5(L) 13.0 - 17.5 g/dL [facility] ([place]) Hct 30.8(L) 38.9 - 50.3 % [facility] ([place]) Plt 283 150 - 400 K/cumm [facility] ([place]) MPV 10.5 9.1 - 12.3 fL [facility] ([place]) RBC 2.87(L) 4.30 - 5.80 M/cumm [facility] ([place]) MCV 107.3(H) 81.3 - 96.4 fL [facility] ([place]) MCH 33.1 27.1 - 33.3 pg [facility] ([place]) MCHC 30.8(L) 32.3 - 35.7 g/dL [facility] ([place]) RDW CV 16.1(H) 11.1 - 14.9 % [facility] ([place]) RDW SD 64.2(H) 35.7 - 48.1 fL [facility] ([place]) NRBC abs 0.00 0.00 - 0.01 K/cumm [facility] ([place]) Blood 04/30/2024 10:3 1 AM EARLY CHILDHOOD TEACHER ASSISTANT 04/30/2024 2:03 PM EARLY CHILDHOOD TEACHER ASSISTANT Narrative [facility] ([place]) - 04/30/2024 2:11 PM EARLY CHILDHOOD TEACHER ASSISTANT Fasting Rand Chong MD LAB BLOOD ORDERABLES Final Result [facility] ([place]) 1 [facility] [place] [address] * Hemoglobin A1c (04/30/2024 10:31 AM EARLY CHILDHOOD TEACHER ASSISTANT) Hgb A1C <4.2 4.0 - 5.6 % Estimated Average Glucose 74 mg/dL [facility] ([place]) Comment: The ADA recommends reporting an estimated Average Glucose (eAG) with all Hemoglobin A1c results using the equation derived from a study of 507 normal and diabetic adults. Minority populations were underrepresented and children were not included. (Diabetes Care 31:5912-4240, 2008). The eAG is not equivalent to a fasting glucose. Blood 04/30/2024 10:3 1 AM EARLY CHILDHOOD TEACHER ASSISTANT 04/30/2024 2:03 PM EARLY CHILDHOOD TEACHER ASSISTANT Narrative [facility] ([place]) - 04/30/2024 3:50 PM EARLY CHILDHOOD TEACHER ASSISTANT Fasting us Rand Chong MD LAB BLOOD ORDERABLES Final Result [facility] ([place]) 1 [facility] [place] [address] * Lipid panel (04/30/2024 10:31 AM EARLY CHILDHOOD TEACHER ASSISTANT) Cholesterol 178 30 - 199 mg/dL Comment: [...] revised on 2017. Triglycerides 80 <=149 mg/dL [facility] ([place]) Comment: Interpretive Data Ages < [...] revised on 2017. HDL 45 >=40 mg/dL [facility] ([place]) Comment: Interpretive Data Ages < or [...] mg/dL High: >160 mg/dL Calculated using the Basilio LDL-C estimating equation. This equation was implemented on 2023. Prior to this date LDL-C was estimated using the Friedewald equation. Literature References: 1. Expert Panel on Integrated Guidelines for Cardiovascular Health and Risk Reduction in Children and Adolescents. Pediatrics 2011;128:S213 2. NCEP Expert Panel. Circulation 2004;110:227 3. Basilio Chairez et al. SHELBY Cardiol. 2020 August 20;5(5):540-548. doi: 10.1001/jamacardio.2020.0013 Current Interpretive Data was last revised on 2023. Non-HDL Cholesterol 133 mg/dL [facility] ([place]) Comment: Interpretive Data [...] last revised on 2017. Chol/HDL ratio 4 [facility] ([place]) Blood 04/30/2024 10:3 1 AM EARLY CHILDHOOD TEACHER ASSISTANT 04/30/2024 2:03 PM EARLY CHILDHOOD TEACHER ASSISTANT Narrative [facility] ([place]) - 04/30/2024 2:40 PM EARLY CHILDHOOD TEACHER ASSISTANT Fasting us Rand Chong MD LAB BLOOD ORDERABLES Final Result [facility] ([place]) 1 [facility] [place] [address] * (ABNORMAL) Comprehensive metabolic panel (04/30/2024 10:31 AM EARLY CHILDHOOD TEACHER ASSISTANT) Sodium 136 135 - 145 mmol/L Potassium, [...] [facility] ([place]) Blood 04/30/2024 10:3 1 AM EARLY CHILDHOOD TEACHER ASSISTANT 04/30/2024 2:03 PM EARLY CHILDHOOD TEACHER ASSISTANT Narrative [facility] ([place]) - 04/30/2024 2:39 PM EARLY CHILDHOOD TEACHER ASSISTANT Fasting Rand Chong MD LAB BLOOD ORDERABLES Final Result [facility] ([place]) 1 [facility] [place] [address] * (ABNORMAL) Differential, auto (04/30/2024 9:25 AM EARLY CHILDHOOD TEACHER ASSISTANT) Neutrophil abs 4.3 1.5 - 6.5 K/cumm Comment:Testing performed by : [place], [address] Imm gran abs 0.0 0.0 - 0.1 K/cumm [facility] ([place]) Comment:Testing performed by : [place], [address] Lymphocyte abs 0.5(L) 0.8 - 3.3 K/cumm [facility] ([place]) Comment:Testing performed by : [place], [address] Monocyte abs 0.5 0.2 - 0.8 K/cumm [facility] ([place]) Comment:Testing performed by : [place], [address] Eosinophil abs 0.1 0.0 - 0.5 K/cumm [facility] ([place]) Comment:Testing performed by : [place], [address] Basophil abs 0.0 0.0 - 0.1 K/cumm [facility] ([place]) Comment:Testing performed by : [place], [address] Neutrophil pct 79.5 % [facility] ([place]) Comment: Interpretive Data Percent cell count reference ranges are not reported, since discordance with absolute values may lead to misinterpretation of CBC data. Current Interpretive Data was last revised on 2017. Testing performed by: [facility], [place], [address] Imm gran pct 0.4 % [facility] ([place]) Comment: Interpretive Data Percent cell count reference ranges are not reported, since discordance with absolute values may lead to misinterpretation of CBC data. Current Interpretive Data was last revised on 2017. Testing performed by: [place], [address] Lymphocyte pct 9.0 % [facility] ([place]) Comment: Interpretive Data Percent cell count reference ranges are not reported, since discordance with absolute values may lead to misinterpretation of CBC data. Current Interpretive Data was last revised on 2017. Testing performed by: [place], [address] Monocyte pct 8.6 % [facility] ([place]) Comment: Interpretive Data Percent cell count reference ranges are not reported, since discordance with absolute values may lead to misinterpretation of CBC data. Current Interpretive Data was last revised on 2017. Testing performed by: [facility], [place], [address] Eosinophil pct 1.9 % [facility] ([place]) Comment: Interpretive Data Percent cell count reference ranges are not reported, since discordance with absolute values may lead to misinterpretation of CBC data. Current Interpretive Data was last revised on 2017. Testing performed by: [place], [address] Basophil pct 0.6 % [facility] ([place]) Comment: Interpretive Data Percent cell count reference ranges are not reported, since discordance with absolute values may lead to misinterpretation of CBC data. Current Interpretive Data was last revised on 2017. Testing performed by: [facility], [place], [address] Blood 04/30/2024 9:25 AM EARLY CHILDHOOD TEACHER ASSISTANT 04/30/2024 10:02 AM EARLY CHILDHOOD TEACHER ASSISTANT us Kareem Figueroa MD LAB BLOOD ORDERABLES Ivory lutz Result [facility] ([place]) 1 [facility] [place] [address] * (ABNORMAL) CBC with auto differential (04/30/2024 9:25 AM EARLY CHILDHOOD TEACHER ASSISTANT) WBC 5.0 3.8 - 9.9 K/cumm Comment:Testing performed by : [facility] [address], [address], [place] [address] Hgb 9.2(L) 13.0 - 17.5 g/dL [facility] ([place]) Comment:Testing performed by : [facility] [address], Medical Office [facility] [address], [place] [address] Hct 29.8(L) 38.9 - 50.3 % [facility] ([place]) Comment:Testing performed by : [facility] [address], Medical Office [facility] [address], [place] [address] Plt 249 150 - 400 K/cumm [facility] ([place]) Comment:Testing performed by : [facility] [address], Medical Office [facility] [address], [place] [address] MPV 9.5 9.1 - 12.3 fL [facility] ([place]) Comment:Testing performed by : [facility] [address], Medical Office [facility] [address], [place] [address] RBC 2.85(L) 4.30 - 5.80 M/cumm [facility] ([place]) Comment:Testing performed by : [facility] [address], Medical Office [address], [place] [address] MCV 104.6(H) 81.3 - 96.4 fL [facility] ([place]) Comment:Testing performed by : [facility] [address], Medical Office [facility] [address], [place] [address] MCH 32.3 27.1 - 33.3 pg [facility] ([place]) Comment:Testing performed by : [facility] [address], Medical Office [address], [place] [address] MCHC 30.9(L) 32.3 - 35.7 g/dL [facility] ([place]) Comment:Testing performed by : [facility] [address], Medical Office [address], [place] [address] RDW CV 16.0(H) 11.1 - 14.9 % [facility] ([place]) Comment:Testing performed by : [facility] [address], Medical Office [facility] [address], [place] [address] RDW SD 62.4(H) 35.7 - 48.1 fL [facility] ([place]) Comment:Testing performed by : [facility] [address], Medical Office [facility] [address], [place] [address] NRBC abs Not Measured 0.00 - 0.01 K/cumm [facility] ([place]) Comment:Testing performed by : [facility] [address], Medical Office [facility] B [facility] [address], [place] [address] Blood 04/30/2024 9:25 AM EARLY CHILDHOOD TEACHER ASSISTANT 04/30/2024 9:25 AM EARLY CHILDHOOD TEACHER ASSISTANT us Kareem Figueroa MD LAB BLOOD ORDERABLES Ivory l Result Performing Organization Address City/[facility]/ZIP Co de Phone Number DIMITRIOS [facility] ([place]) 1 [facility] [place] [place] [address] * (ABNORMAL) Iron profile w/ IBC (04/30/2024 9:15 AM EARLY CHILDHOOD TEACHER ASSISTANT) Iron 49(L) 50 - 150 mcg/dL Comment:Testing performed by : [place], [address] TIBC 284 250 - 400 mcg/dL [facility] ([place]) Comment:Testing performed by : [facility], [place], [address] Transferrin saturation 17(L) 20 - 50 % [facility] ([place]) Comment:Testing performed by : [place], [address] Blood 04/30/2024 9:15 AM EARLY CHILDHOOD TEACHER ASSISTANT 04/30/2024 9:36 AM EARLY CHILDHOOD TEACHER ASSISTANT us Kareem Figueroa MD LAB BLOOD ORDERABLES Ivory l Result Performing Organization Address City/[facility]/ZIP Co de Phone Number [facility] ([place]) 1 [facility] Department [place] [address] * Ferritin (04/30/2024 9:15 AM EARLY CHILDHOOD TEACHER ASSISTANT) Ferritin 100 30 - 400 ng/mL Comment:Testing performed by : [facility], [facility], [place], [address] Blood 04/30/2024 9:15 AM EARLY CHILDHOOD TEACHER ASSISTANT 04/30/2024 9:36 AM EARLY CHILDHOOD TEACHER ASSISTANT us Kareem Figueroa MD LAB BLOOD ORDERABLES Ivory l Result [facility] ([place]) 1 [facility] Department [place] [address] * Surgical pathology (04/28/2024 1:53 PM EARLY CHILDHOOD TEACHER ASSISTANT) Tissue ([place], Biopsy) 04/28/2024 9:00 AM EARLY CHILDHOOD TEACHER ASSISTANT Tissue (Colon, Biopsy) 04/28/2024 9:00 AM EARLY CHILDHOOD TEACHER ASSISTANT Narrative PATHOLOGY [facility] ([place]) - 04/29/2024 2:18 PM EARLY CHILDHOOD TEACHER ASSISTANT EPIC results best viewed via link to PDF [facility] Department of Pathology [address] [place] [id number] Note to Patients: This report may contain [...] Final Report Patient Name: TWYLA NOONAN Address: [address] [place] [address]- Gender: M : 1950 (Age: 73) Service: Gastro Location: [facility] Hospital #: [id number] Patient Type: [facility] Taken: 04/28/2024 Received: 04/28/2024 Accessioned: 04/28/2024 Reported: [...] measuring 1 mm. All in B. T.A. Diana Wong, P.A./Kely Barone M.D. REPORT IMAGES AND SCANNED DOCUMENTS, IF INCLUDED, ONLY VIEWABLE IN PDF VERSION OF REPORT The performance characteristics of some immunohistochemical stains, fluorescence in-situ hybridization tests and immunophenotyping by flow cytometry cited in this report (if any) were determined by the Surgical Pathology Department at [facility] as part of an ongoing quality analyst program and in compliance with federally mandated [...] characteristics determined by the Surgical Pathology Department [facility]. It has not been cleared or approved by the U. S. Food and Drug Administration. Note for decalcified specimens: This assay has not been validated on decalcified tissues. Results should be interpreted with caution given the possibility of false negativity on decalcified specimens us Rudy Mccarthy MD LAB PATHOLOGY ORDERABLES F inal Result PATHOLOGY [facility] [place]) [address] [place] [address] * Colonoscopy (04/28/2024 7:12 AM EARLY CHILDHOOD TEACHER ASSISTANT) Anatomical Region Laterality Modality Other Narrative Procedure Note Rudy Mccarthy MD - 04/28/2024 7:12 AM CST [facility] Patient Name: Twyla Noonan Procedure Date: 04/28/2024 7:12 AM Date of : 1950 Admit Type: Outpatient Age: 73 Gender: Male Attending MD: Rudy Mccarthy M.D. Room: [facility] ENDOSCOPY ROOM 1 Note Status: Finalized Patient [...] passed under direct vision.The Pediatric Colonoscope PCF-H190L [id number] was introduced through the anus and advanced [...] 7:12 AM Procedure Code(s): --- Professional --- 87336, 59, Colonoscopy, flexible; with control of bleeding, anymethod 83216, Colonoscopy, flexible; with biopsy, single or multiple Diagnosis Code(s): --- Professional --- Z80.0, Family history of malignant neoplasm of digestive organs K64.8, Other hemorrhoids K55.20, Angiodysplasia of colon without hemorrhage K55.9, Vascular disorder of intestine, unspecified K57.30, Diverticulosis of large intestine without perforation orabscess without bleeding CPT copyright 2020 [employer]. All rights reserved. The codes documented in this report are preliminary and upon insurance coder reviewmay be revised to meet current compliance requirements. Recognized by the [place] [employer] for promoting quality in endoscopy Rudy Mccarthy MD ENDOSCOPY PROCEDURES Final Result * EGD (04/28/2024 7:12 AM EARLY CHILDHOOD TEACHER ASSISTANT) Anatomical Region Laterality Modality Other Narrative Procedure Note Rudy Mccarthy MD - 04/28/2024 7:12 AM CST [facility] Patient Name: Twyla Noonan Procedure Date: 04/28/2024 7:12 AM Date of : 1950 Admit Type: Outpatient Age: 73 Gender: Male Attending MD: Rudy Mccarthy M.D. Room: [facility] ENDOSCOPY ROOM 1 Note Status: Finalized Patient [...] passed under direct vision. The Endoscope GIF-H190 [id number] was introduced through the mouth, and advanced [...] 7:12 AM Procedure Code(s): --- Professional --- 24674, 59, Esophagogastroduodenoscopy, flexible, transoral; withcontrol of bleeding, any method 64087, Esophagogastroduodenoscopy, flexible, transoral; with biopsy, single or multiple Diagnosis Code(s): --- Professional --- K31.811, Angiodysplasia of stomach and duodenum with bleeding K22.89, Other specified disease of esophagus D50.0, Iron deficiency anemia secondary to blood loss (chronic) CPT copyright 2020 [employer]. All rights reserved. The codes documented in this report are preliminary and upon insurance coder reviewmay be revised to meet current compliance requirements. Recognized by the [place] [employer] for promoting quality in endoscopy Rudy Mccarthy MD ENDOSCOPY PROCEDURES Final Result * (ABNORMAL) Differential, auto (04/02/2024 9:00 AM EARLY CHILDHOOD TEACHER ASSISTANT) Neutrophil abs 3.9 1.5 - 6.5 K/cumm Comment:Testing performed by : [facility] [address], Medical Office [place] [address], [place] [address] Imm gran abs 0.0 0.0 - 0.1 K/cumm [facility] ([place]) Comment:Testing performed by : [facility] [address], Medical Office [facility] [address], [place] [address] Lymphocyte abs 0.4(L) 0.8 - 3.3 K/cumm [facility] ([place]) Comment:Testing performed by : [facility] [address], Medical Office [facility] [address], [place] [address] Monocyte abs 0.5 0.2 - 0.8 K/cumm [facility] ([place]) Comment:Testing performed by : [facility] [address], Medical Office [facility] [address], [place] [address] Eosinophil abs 0.2 0.0 - 0.5 K/cumm [facility] ([place]) Comment:Testing performed by : [facility] [address], Medical Office [facility] [address], [place] [address] Basophil abs 0.0 0.0 - 0.1 K/cumm [facility] ([place]) Comment:Testing performed by : [facility] [address], Medical Office [address], [place] [address] Neutrophil pct 77.8 % [facility] ([place]) Comment: Consistent with previous result Interpretive Data Percent cell count reference ranges are not reported, since discordance with absolute values may lead to misinterpretation of CBC data. Current Interpretive Data was last revised on 2022. Testing performed by: [facility] [address], Medical Office [address], [place] [address] Imm gran pct 0.2 % [facility] ([place]) Comment: Interpretive Data Percent cell count reference ranges are not reported, since discordance with absolute values may lead to misinterpretation of CBC data. Current Interpretive Data was last revised on 2022. Testing performed by: [facility] [address], Medical Office [address], [place] [address] Lymphocyte pct 8.5 % [facility] ([place]) Comment: Interpretive Data Percent cell count reference ranges are not reported, since discordance with absolute values may lead to misinterpretation of CBC data. Current Interpretive Data was last revised on 2022. Testing performed by: [facility] [address], Medical Office [address], [place] [address] Monocyte pct 9.5 % [facility] ([place]) Comment: Interpretive Data Percent cell count reference ranges are not reported, since discordance with absolute values may lead to misinterpretation of CBC data. Current Interpretive Data was last revised on 2022. Testing performed by: [facility] [address], Medical Office [address], [place] [address] Eosinophil pct 3.6 % [facility] ([place]) Comment: Interpretive Data Percent cell count reference ranges are not reported, since discordance with absolute values may lead to misinterpretation of CBC data. Current Interpretive Data was last revised on 2022. Testing performed by: [facility] [address], Medical Office [address], [place] [address] Basophil pct 0.4 % [facility] ([place]) Comment: Interpretive Data Percent cell count reference ranges are not reported, since discordance with absolute values may lead to misinterpretation of CBC data. Current Interpretive Data was last revised on 2022. Testing performed by: [facility] [address], Medical Office [facility] B [facility] [address], [place] [address] Blood 04/02/2024 9:00 AM EARLY CHILDHOOD TEACHER ASSISTANT 04/02/2024 9:05 AM EARLY CHILDHOOD TEACHER ASSISTANT Kareem Figueroa MD LAB BLOOD ORDERABLES Ivory l Result Performing Organization Address [facility] Co de Phone Number [facility] ([place]) 1 [facility] Department [place] [address] * Iron profile w/ IBC (04/02/2024 9:00 AM EARLY CHILDHOOD TEACHER ASSISTANT) Iron 133 50 - 150 mcg/dL Comment:Testing performed by : [place], [address] TIBC 355 250 - 400 mcg/dL [facility] ([place]) Comment:Testing performed by : [facility], [place], [address] Transferrin saturation 37 20 - 50 % [facility] ([place]) Comment:Testing performed by : [place], [address] Blood 04/02/2024 9:00 AM EARLY CHILDHOOD TEACHER ASSISTANT 04/02/2024 9:14 AM EARLY CHILDHOOD TEACHER ASSISTANT Kareem Figueroa MD LAB BLOOD ORDERABLES Ivory l Result Performing Organization Address [facility] Co de Phone Number [facility] ([place]) 1 [facility] [place] [address] * (ABNORMAL) CBC with auto differential (04/02/2024 9:00 AM EARLY CHILDHOOD TEACHER ASSISTANT) WBC 5.1 3.8 - 9.9 K/cumm Comment:Testing performed by : [facility] [address], Medical Office [facility] [address], [place] [address] Hgb 7.3(L) 13.0 - 17.5 g/dL [facility] ([place]) Comment:Testing performed by : [facility] [address], Medical Office [facility] [address], [place] [address] Hct 25.2(L) 38.9 - 50.3 % [facility] ([place]) Comment:Testing performed by : [facility] [address], Medical Office [address], [place] [address] Plt 238 150 - 400 K/cumm [facility] ([place]) Comment:Testing performed by : [facility] [address], Medical Office [facility] [address], [place] [address] MPV 9.3 9.1 - 12.3 fL [facility] ([place]) Comment:Testing performed by : [facility] [address], Medical Office [facility] [address], [place] [address] RBC 2.34(L) 4.30 - 5.80 M/cumm [facility] ([place]) Comment:Testing performed by : [facility] [address], Medical Office [facility] [address], [place] [address] MCV 107.7(H) 81.3 - 96.4 fL [facility] ([place]) Comment:Testing performed by : [facility] [address], Medical Office [facility] [address], [place] [address] MCH 31.2 27.1 - 33.3 pg [facility] ([place]) Comment:Testing performed by : [facility] [address], Medical Office [facility] [address], [place] [address] MCHC 29.0(L) 32.3 - 35.7 g/dL [facility] ([place]) Comment:Testing performed by : [facility] [address], Medical Office [facility] [address], [place] [address] RDW CV 17.5(H) 11.1 - 14.9 % [facility] ([place]) Comment:Testing performed by : [facility] [address], Medical Office [address], [place] [address] RDW SD 69.4(H) 35.7 - 48.1 fL [facility] ([place]) Comment:Testing performed by : [facility] [address], Medical Office [address], [place] [address] NRBC abs Not Measured 0.00 - 0.01 K/cumm [facility] ([place]) Comment:Testing performed by : [facility] [place], [address], Medical Office [facility] [address], [place] [address] Blood 04/02/2024 9:00 AM EARLY CHILDHOOD TEACHER ASSISTANT 04/02/2024 9:05 AM EARLY CHILDHOOD TEACHER ASSISTANT us Kareem Figueroa MD LAB BLOOD ORDERABLES Ivory l Result [facility] ([place]) 1 [facility] [place] [address] * Folate (04/02/2024 9:00 AM EARLY CHILDHOOD TEACHER ASSISTANT) Pathologist [facility] Folic acid >20.0 >=5.0 ng/mL Comment: Slightly Hemolyzed Specimen. Results may be affected. Testing performed by: [place], [address] Blood 04/02/2024 9:00 AM EARLY CHILDHOOD TEACHER ASSISTANT 04/02/2024 9:14 AM EARLY CHILDHOOD TEACHER ASSISTANT us Kareem Figueroa MD LAB BLOOD ORDERABLES Ivory l Result Performing Organization Address [facility] Co de Phone Number DIMITRIOS [facility]USER ([place]) 1 [facility] [place] [place] [address] * (ABNORMAL) Ferritin (04/02/2024 9:00 AM EARLY CHILDHOOD TEACHER ASSISTANT) Pathologist [facility] Ferritin 24(L) 30 - 400 ng/mL Comment:Testing performed by : [place], [address] Blood 04/02/2024 9:00 AM EARLY CHILDHOOD TEACHER ASSISTANT 04/02/2024 9:14 AM EARLY CHILDHOOD TEACHER ASSISTANT us Kareem Figueroa MD LAB BLOOD ORDERABLES Ivory l Result [facility] ([place]) 1 [facility] [place] [address] * PSA screen (05/20/2023 10:28 AM EARLY CHILDHOOD TEACHER ASSISTANT) PSA-Total 0.28 <=6.20 ng/mL [facility] ([place]) Comment: Interpretive Data AGE SEX REFERENCE INTERVAL [...] revised 21. Blood 05/20/2023 10:2 8 AM EARLY CHILDHOOD TEACHER ASSISTANT 05/20/2023 1:25 PM EARLY CHILDHOOD TEACHER ASSISTANT Narrative [facility] ([place]) - 05/20/2023 2:17 PM EARLY CHILDHOOD TEACHER ASSISTANT fasting Rand Chong MD LAB BLOOD ORDERABLES Final Result [facility] ([place]) 1 [facility] Department [place] [address] * Hepatitis panel, acute (10/12/2022 2:45 PM CDT) Pathologist [facility] Hep A IgM Nonreactive Nonreactive [facility] ([place]) Comment: Interpretive Data: If Hep A IgM Ab is reported as Equivocal, a new sample should be drawn in two weeks for testing. Current interpretive data was last revised on 19. Testing performed by: [facility], [address] [place] [address]., [id number] Hep B core IgM Nonreactive Nonreactive Rebecca [facility] ([place]) Comment: Interpretive Data If HepB Core IgM Ab is reported as Equivocal, a new sample should be drawn in two weeks for testing. Current interpretive data was last revised on 19. Testing performed by: [address] [address] Hep C Ab Nonreactive Nonreactive DIMITRIOS [facility]USER [...] last revised on 2019. Testing performed by: [facility], [address] [place] [address]., [id number] HepBsAg Nonreactive Nonreactive [facility] ([place]) Comment:Testing performed by : [facility], [address] [place] [address]., [id number] Blood 10/12/2022 2:45 PM CDT 10/12/2022 11:11 PM CDT Radha LEACH LAB MICROBIOLOGY - GENER AL ORDERABLES Final Result [facility] ([place]) 1 [facility] [place] [address] from Last 3 Months or Most Recently Relevant to Health Maintenance Insurance [facility] [employer] INSURANCE [employer] MEDICARE MEDICARE [employer] MEDICARE [employer] Advance Directives For more information, please contact: [phone] * Full Code (Latest Code Status on [...] 2:19 AM 09/12/2021 8:31 PM Care Teams Telegraph Dispatcher Relationship Specialty Start Date End Date Rand Chong MD [address] [facility] [place] [address] PCP - General Family Medicine 01/24/22 Jose Brunson MD [address] [place] [address] Consulting Physician Pulmonary Disease 05/02/22 Lauren Dia MD [address] [place] [address] Consulting Physician Cardiology 05/02/22 Ranjit Sandoval PA [address] [place] [address] Physician Chief Librarian Music Department Physician Chief Librarian Music Department 07/05/23 Kareem Figueroa MD [address] [facility] [facility] [address] [place] [address] Consulting Physician Medical Oncology 05/07/24 Radha Toure PA [address] [place] [address] [address] Gastroenterology 05/07/24 Natalya Peñaloza MD [address] [facility] [address] [place] [address] Consulting Physician Internal Medicine 05/07/24
--- OUTSIDE RECORDS SUMMARY | 2024-06-24 12:50 | XMS_ITS | Encounter Summary ---
Author Organization [facility] Address [address] [facility] [address] [place] [address] Care Team Providers Care Refinery Operator Vapor Recovery Unit Name Role Phone Declan Mora MD Primary Care Provider [phone] Declan Mora MD Primary Care Provider [phone] Scarlett Clarke LPN Unavailable Unavailabl e Amy Echeverria RN Unavailable [phone] Amy Echeverria RN Unavailable [phone] Declan Mora MD Primary Care Provider [phone] Wally Shell MD Primary Care Provider Rand Chong MD Primary Care Provide r Jose Brunson MD Unavailable Lauren Dia MD Unavailable [phone] Ranjit Sandoval Unavailable + [phone] Kareem Figueroa MD Unavailable [phone] Radha Toure Unavailable [phone] Natalya Peñaloza MD Unavailable Encounter Details Date Type Department Care Team (Late st Contact Info) Description 06/19/2016 Orders Only [facility] Provider, MD [facility] [place] [address] Social History Tobacco Use Types Packs/Day Years Used Date Smoking Tobacco: Former Cigarettes Q uit: 04/22/1999 Alcohol Use Standard Drinks/Week Comments Yes 0 (1 standard drink = 0.6 oz pur e alcohol) Sex and Gender Information Value Date Recorded Sex Assigned at Not on file Legal Sex Male 11:53 PM HISTOLOGY TEACHER Gender Identity Male 09/12/2023 11:52 AM CDT Sexual Orientation Straight 09/12/2023 11 :52 AM CDT documented as of this encounter Plan of Treatment Upcoming Encounters Date Type Department Care Team (Late st Contact Info) Description 11/03/2024 12:00 PM CDT Hospital Encounter [address] [address] Rudy Mccarthy MD [address] [place] [address] [address] [place] [address] 11/03/2024 12:00 PM CDT - 11/03/2024 12:30 PM CDT Surgery [address] [address] Rudy Mccarthy MD [address] [facility] [address] [place] [address] COLONOSCOPY Scheduled Procedures Name Priority Associated Diagnoses Date/Ti me COLONOSCOPY Colitis AVM (arteriovenous malformation) Family history of colon cancer 11/03/2024 12:00 PM CDT documented as of this encounter Procedures Procedure Name Priority Date/Time Associated Diagnosis Comments CARDIOLOGY REPORT 06/19/2016 documented in this encounter Results * CARDIOLOGY REPORT (06/19/2016) Anatomical Region Laterality Modality Other Narrative 06/19/2016 Ordered by an unspecified provider. us Historical Provider [facility] JAMEL VELA Final Result documented in this encounter Visit Diagnoses Not on filedocumented in this encounter Additional Health Concerns Infection Onset Date Last Indicated Resolved Time COVID: Suspected 09/07/2021 09/07/2021 09/08/2021 12:01 AM CDT COVID: Suspected 03/24/2022 03/24/2022 03/24/2022 9:48 AM HISTOLOGY TEACHER COVID: Suspected 10/08/2023 10/08/2023 10/08/2023 10:56 AM CDT documented as of this encounter Care Teams Refinery Operator Vapor Recovery Unit Relationship Specialty Start Date End Date Declan Mora MD PCP - General 07/20/16 10/01/21 Declan Mora MD PCP - General 06/15/16 07/19/16 Declan Mora MD [address] [facility] [address] [place] [address] PCP - General 10/03/21 01/22/22 Wally Shell MD [address] [facility] [address] [place] [address] PCP - General Family Medicine 01/23/22 01/23/22 Rand Chong MD [address] [place] [address] [address] [place] [address] PCP - General Family Medicine 01/24/22 Scarlett Clarke LPN Care Manager 11/01/16 11/01/16 Amy Echeverria RN [address] [place] [address] Division Officer Weapons Department 06/21/17 07/21/17 Amy Echeverria RN [address] [place] [address] [address] [place] [address] Division Officer Weapons Department 09/13/21 10/08/21 Jose Brunson MD [address] [facility] [address] [place] [address] Consulting Physician Pulmonary Disease 05/02/22 Lauren Dia MD [address] [facility] [address] [place] [address] Consulting Physician Cardiology 05/02/22 Ranjit Sandoval PA [address] [place], [place] [address] Physician Cuff Cutter Physician Cuff Cutter 07/05/23 Kareem Figueroa MD [address] [facility] [address] [facility] [place] [address] Consulting Physician Medical Oncology 05/07/24 Radha Toure PA [address] [facility] [address] [place] [address] Gastroenterology 05/07/24 Natalya Peñaloza MD [address] [place] [address] Consulting Physician Internal Medicine 05/07/24 documented as of this encounter
--- OUTSIDE RECORDS SUMMARY | 2024-06-24 12:50 | XMS_ITS | Encounter Summary ---
Author Organization [facility] Address [address] [place] [address] Phone Care Team Providers Care Power Hair Clipper Name Role Phone Declan Mora MD Primary Care Provider [phone] Amy Echeverria RN Unavailable [phone] Amy Echeverria RN Unavailable [phone] Declan Mora MD Primary Care Provider [phone] Wally Shell MD Primary Care Provider Rand Chong MD Primary Care Provide r Jose Brunson MD Unavailable Lauren Dia MD Unavailable [phone] Ranjit Sandoval Unavailable +[phone] Kareem Figueroa MD Unavailable [phone] Radha Toure Unavailable [phone] Natalya Peñaloza MD Unavailable Encounter Details Date Type Department Care Team (Late st Contact Info) Description 06/27/2017 Orders Only [facility] ProviderWilliam MD [address] [place] [address] Social History Tobacco Use Types Packs/Day Years Used Date Smoking Tobacco: Former Smokeless Tobacco: Never Alcohol Use Standard Drinks/Week Comments No 0 (1 standard drink = 0.6 oz pur e alcohol) Sex and Gender Information Value Date Recorded Sex Assigned at Not on file Legal Sex Male 11:53 PM ELECTRONIC TRANSACTION IMPLEMENTER Gender Identity Male 09/12/2023 11:52 AM CDT Sexual Orientation Straight 09/12/2023 11 :52 AM CDT documented as of this encounter Plan of Treatment Upcoming Encounters Date Type Department Care Team (Late st Contact Info) Description 11/03/2024 12:00 PM CDT Hospital Encounter [address] [address] Rudy Mccarthy MD [address] [facility] [address] [place] [address] 11/03/2024 12:00 PM CDT - 11/03/2024 12:30 PM CDT Surgery [address] [address] Rudy Mccarthy MD [address] [facility] [address] [address] COLONOSCOPY Scheduled Procedures Name Priority Associated Diagnoses Date/Ti me COLONOSCOPY Colitis AVM (arteriovenous malformation) Family history of colon cancer 11/03/2024 12:00 PM CDT documented as of this encounter Procedures Procedure Name Priority Date/Time Associated Diagnosis Comments DISCHARGE LABORATORY CUMULATIVE REPORT 06/27/2017 12:00 AM ELECTRONIC TRANSACTION IMPLEMENTER documented in this encounter Results * DISCHARGE LABORATORY CUMULATIVE REPORT (06/27/2017 12:00 AM ELECTRONIC TRANSACTION IMPLEMENTER) Narrative 06/27/2017 12:00 AM ELECTRONIC TRANSACTION IMPLEMENTER Ordered by an unspecified provider. us Historical Provider LAB BLOOD ORDERABLES Ivory l Result documented in this encounter Visit Diagnoses Not on filedocumented in this encounter Additional Health Concerns Infection Onset Date Last Indicated Resolved Time COVID: Suspected 09/07/2021 09/07/2021 09/08/2021 12:01 AM CDT COVID: Suspected 03/24/2022 03/24/2022 03/24/2022 9:48 AM ELECTRONIC TRANSACTION IMPLEMENTER COVID: Suspected 10/08/2023 10/08/2023 10/08/2023 10:56 AM CDT documented as of this encounter Care Teams Power Hair Clipper Relationship Specialty Start Date End Date Declan Mora MD PCP - General 07/20/16 10/01/21 Declan Mora MD [address] [facility] [place] [address] PCP - General 10/03/21 01/22/22 Wally Shell MD [address] [facility] [address] PCP - General Family Medicine 01/23/22 01/23/22 Rand Chong MD [address] [facility] [place] [address] PCP - General Family Medicine 01/24/22 Amy Echeverria RN [address] [facility] [place], [place] [id number] Catapult And Arresting Gear Officer 06/21/17 07/21/17 Amy Echeverria RN [address] [place] [address] [address] [place] [address] Catapult And Arresting Gear Officer 09/13/21 10/08/21 Jose Brunson MD [address] [facility] [place] [address] Consulting Physician Pulmonary Disease 05/02/22 Lauren Dia MD [address] [facility] [place] [address] Consulting Physician Cardiology 05/02/22 Ranjit Sandoval PA [address] [place] [address] Physician Analyst Sales Physician Analyst Sales 07/05/23 Kareem Figueroa MD [address] [facility] [address] [facility] [place] [address] Consulting Physician Medical Oncology 05/07/24 Radha Toure PA [address] [facility] [address] [place] [address] Gastroenterology 05/07/24 Natalya Peñaloza MD [address] [place] [address] Consulting Physician Internal Medicine 05/07/24 documented as of this encounter
== END ==
LOC: ANHLAB 11:06
PROVIDERS: Visit Provider Plastic Surgery
DX: C44.92 Squamous cell carcinoma of skin, unspecified (principal)
CPT/HCPCS: 88305

== ENCOUNTER → 2024-12-15 11:09 | Outpatient (REF) | payer MEDICARE, SELFPAY ==
--- OUTSIDE RECORDS SUMMARY | 2018-06-25 06:00 | XMS_ITS | Continuity of Care Document ---
Author [place] [facility] [place] [address] [facility] [address] [place] [address] Phone Care Team Providers Care Com Writer Name Role Phone Dallin Page OD Unavailable Unavailable Allergies, Adverse Reactions, Alerts Substance Reaction Status Criticality No Known Allergies Active No Inform ation Medications Medication Instructions Dosage Effective Dates (start - stop) Status Comments AREDS 2 ORAL CAPSULE 1 tablet by mouth 2 times a day - Active losartan 100 mg-hydrochlorothi azide 25 mg tablet take 1 tablet by oral route every day 1.00 tablet - Active sildenafil 25 mg tablet take 1 tablet by oral route every day as needed approximately 1 hour before sexual activity 25 MG - Active atorvastatin 20 mg tablet take 1 tablet by oral route every day 20 MG - Active ranitidine 300 mg tablet take 1 tablet by oral route every day at bedtime - Active aspirin 81 mg tablet,delayed release take 1 tablet by oral route every day 81 MG - Active Vigamox 0.5 % eye drops Instill 1 drop in the operated eye QID x 1 week, and then TID until bottle runs out - No Longer Active ok to substitute Polytrim with same instructions 5ML bottle prednisolone acetate 1 % eye drops,suspension instill 1 drop in the operated eye QID x 1 week, TIDx 1 week, BID x 1 week then Qday x 1 week then stop - No Longer Active ketorolac 0.5 % eye drops instill 1 drop in the operated eye 3 times a day for 4 weeks - No Longer Active Procedures Procedure Date No Charge Refraction Post-op Follow-up Visit Post-op Follow-up Visit Remove Cataract, Post Op Care 9 Remove Cataract, Insert Lens,Comanaged F IOLMaster-Professional No Charge Refraction Post-op Follow-up Visit Post-op Follow-up Visit Remove Cataract, Post Op Care 9 Remove Cataract, Insert Lens,Comanaged J [facility]-Professional Corneal Pachymetry Fundus Photography W/ Report Visual Field Examination(s) Office/outpatient Visit, Est No Charge GDX Posterior Segment 018 No Charge Orbscan No Charge Refraction I[facility] Eye Exam, New Patient Advance Directives Directive Yes / No Effective Date File Name No Information Encounters Encounter Description Practice Location Reason(s) For Visit Diagnoses Date Provider Providers Copied on Encounter [facility], [address] [place], [place] [address], [place], [place], [id number], [place] tel:[phone] SEC [place] Professional 1 month s/p PCIOL (chief complaint) Encounter for examination following surgery 9 Kaylee OD Dallin. [address] [place] [address], [address] [place] [address], [address], [place]. tel:[phone] Referring Provider: Peter Chairez, [address] [facility] [address], [place], [address] . tel:[phone] [facility], [address], [place], [place], [address], [place] tel:[phone] SEC [place] Professional 1 week s/p PCIOL (chief complaint) Encounter for examination following surgery 9 Kaylee OD Dallin. [address] [place] [address], [address] [place] [address], [place], [address], [place]. tel:[phone] Referring Provider: Peter Chairez, [address], [place], [address] . 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 [address] [facility], [address]th [address], [place], [address], [place]. tel:[phone] Referring Provider: Peter Chairez, [address] [facility] [address], [place], [address] . tel:[phone] Located within [facility], [address], [place], [place], [address], [place] tel:[phone] [facility] No Information 9 Hugo Green. [address] [facility], [address], [place], [place], [address], [place]. tel:[phone] Referring Provider: Peter Chairez, [address] [facility] [address], [place], [address] . tel:[phone] Located within [facility], [address], [place], [place], [address], [place] tel:[phone] SEC Kieran Mahmood No Information 9 Hugo Green. [address], [place], [place], [address], [place]. tel:[phone] Referring Provider: Peter Chairez, [address], [place], [address] . tel:[phone] [facility], [address], [place], [place], [address], [place] tel:[phone] SEC [place] IGNACIO Professional No Information 9 Hugo Green. [address] [facility], [place], [place], [address], [place]. 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 [address] [facility], [address] [facility], [place], [address], [place]. tel:[phone] Referring Provider: Peter Chairez, [address] [facility] [address], [place], [address] . tel:[phone] Located within [facility], [address], [place], [place], [address], [place] tel:[phone] SEC [place] IGNACIO Professional Post-Op (chief complaint) Encounter for examination following surgery 9 Kaylee OD Dallin. [address] [facility], [address] [facility], [place], [address], [place]. tel:[phone] Referring Provider: Peter Chairez, [address] [facility] [address], [place], [address] . 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 [address] [facility], [address] [facility], [place], [address], [place]. tel:[phone] Referring Provider: Peter Chairez, [address] [facility] [address], [place], [address] . tel:[phone] Located within [facility], [address], [place], [place], [address], [place] tel:[phone] [facility] No Information 9 Hugo Green. [address], [address], [place], [place], [address], [place]. tel:[phone] Referring Provider: Peter Chairez, [address] [facility] [address], [place], [address] . tel:[phone] Located within [facility], [address], [place], [place], [address], [place] tel:[phone] SEC [place] Professional No Information 8 Hugo Green. [address], [address], [place], [place], [address], [place]. tel:[phone] Referring Provider: Peter Chairez, [address] [address], [place], [address] . tel:[phone] Office/outpa tient Visit, Est Located within [facility], [address], [place], [place], [address], [place] [phone] SEC [place] Professional Glaucoma evaluation (chief complaint) Optic cupping of both eyesAge-relat ed nuclear cataract, bilateral 8 Hugo Green. [address], [address], [address], [place]. tel:[phone] Referring Provider: Peter Chairez, [address] [facility] [address], [place], [address] . tel:[phone] Located within [facility], [address], [place], [place], [address], [place] tel:[phone] SEC [place] Professional Cataract evaluation (chief complaint) Age-related nuclear cataract, bilateralNexd tve age-related mclr degn, left eye, early dry stageOptic cupping of both eyesPapilloma of right eyelidLesion of left eyelid 8 Hugo Green. [address] [facility], [place], [place], [address], [place]. tel:[phone] Referring Provider: Peter Arias Contreras, [address], [place], [address] . tel:[phone] Family History Family Member Type Diagnosis Age At Onset No Information Payers Payer name Insurance type Covered democrat ID Authoriza tion(s) No Information Social History Type Description Quantity Date Captured Comments Alcohol Use Details Caffeine Use Details Tobacco Use Status Ex-cigarette smoker 019 Smoking Status Former smoker Smoking Tobacco Use Details Cigarette: Age Started: 19, Age Stopped: 39, Years Used 19 Cigarette: No Details Available Sex Male Chief Complaint And Reason For Visit From encounter dated '06/25/2018 11:00'. 1 month s/p PCIOL (chief complaint). Description: The 67 year old male presents for evaluation of 1month s/p PCIOL in the left eye. Patient states distance VA is good. Reason For Referral Reason For Referral No Information Plan Of Treatment Date Type Action Status Patient Education Cataract Surgery: What to Expect at H~ completed Patient Education Cataracts: Care Instruc tions completed History Of Present Illness Encounter Date Complaint History Of Prese nt Illness 1 month s/p PCIOL The 67 year ol d male presents for evaluation of 1 month s/p PCIOL in the left eye. Patient states distance VA is good. 1 week s/p PCIOL The 67 year old male presents for evaluation of 1 week s/p PCIOL in the left eye. Patient states VA is good only has trouble reading his music. Patient using Pred, Ket, and Vig as directed. Post-Op The 67 year old male presents for a 1 day post op CE OS. Patient is using Pred and Vigamox qid OS and Ketorolac tid OS. Patient denies any pain or discomfort. 2 week s/p PCIOL The 67 year old male presents for evaluation of 2 week s/p PCIOL in the right eye. Patient states VA is good with the right eye. Patient using p/o gtts as directed. c/o with the left eye is trouble with glare and bright lights. Post-Op The 67 year old male presents for a 1 week post op CE OD. Patient states OD is doing good. Patient is using Pred, Vigamox and Ketorolac tid OD. 1 day s/p PCIOL The 67 year old male presents for evaluation of 1 day s/p PCIOL in the right eye. Patient states everything is much brighter with his VA. Patient instructed to use Pred, Vig,and Ket as well as use of eye shield. Glaucoma evaluation The 67 year old male presents for evaluation of Glaucoma evaluation in the right eye and left eye. Hx of AMD OS, Optic Cupping OU, Papilloma OD Lid, and Lesion OS Lid. Patient denies any problems or changes since last visit. Not on any gtts at this time. Cataract evaluation The 67 year old male presents for a cataract evaluation ou. Patient states he has macular degeneration. Patient c/o the last few months vision is blurry ou and c/o he sees rings around lights at night. Patient c/o hard to see his music. Functional Status Date Functional Assessmen t No Information Instructions Date Instruction Additional Infor doug RTC PRN Related to Encou nter for examination following surgery Impression/Plan Related to Encou nter for examination following surgery 2-3wk or sooner prn Related to E ncounter for examination following surgery Impression/Plan Related to Encou nter for examination following surgery 1 wk or sooner prn Related to En counter for examination following surgery Impression/Plan Related to Encou nter for examination following surgery 2 wk for ce/pciol os or sooner P RN Related to Encounter for examination following surgery Impression/Plan Related to Encou nter for examination following surgery 1wk or sooner PRN Related to Enc ounter for examination following surgery Impression/Plan Related to Encou nter for examination following surgery Impression/Plan Impression/Plan Impression/Plan Assessments Type Assessment Date assessment Encounter for examination follow ing surgery impression Encounter for examination follow ing surgery: Z09 Patient Care Teams Name Effective Dates (start - stop) Status Members No Information
--- NOTE | 2024-12-15 11:09 | S_PTH ---
PATIENT: Vladimir Valdivia LOC: [facility] U#:[id number] AGE/SX: 74/M ROOM: RE12/15/[address]: Carri Wheat MD : 1950 BED: DIS: SPEC #: [id number] RECD: 12/15/24 11:51 STATUS: NACHO REDurga #: [id number] JOELLE: 12/15/24 11:[address]: Carri Wheat DEPT: [facility] Surgical RECD BY: Alanna Fuller ENTERED: 12/15/24 11:51 SP TYPE: Surgical OTHR DR: UNKNOWN,DOCTOR Tissues: A - LESION Procedures: Hematoxylin and Eosin Stain Gross and Microscopic Level 4
== END ==
LOC: ANHLAB 11:09
PROVIDERS: Visit Provider Plastic Surgery
DX: D04.61 Carcinoma in situ of skin of right upper limb, including shoulder (principal)
CPT/HCPCS: 88305